=== PATIENT | male | born 1965 | race Native Hawaiian/Other Pacific Islander ===

== ENCOUNTER 2017-02-17 22:59 | Inpatient (IN) | payer OTHER ==
[2017-02-17] MEDS ORDERED: CATAPRES ONE (23:20)
[2017-02-17] MEDS ORDERED: CATAPRES PO ONE (23:34)
[2017-02-17 23:50] LABS: Basophils % (Auto) 0.5 % (0.0-1.8); Eosinophils % (Auto) 13.6 % (0.0-4.3); Hematocrit 27.9 % (35.5-45.6); Hemoglobin 9.5 gm/dl (11.8-15.2); Mean Corpuscular HGB Conc 34 % (32-34); Mean Corpuscular Hemoglobin 31 pg (28-32); Mean Corpuscular Volume 90 fl (84-94); Platelet Count 216 K/mm3 (140-440); Red Blood Count 3.11 M/mm3 (3.65-5.03); Red Cell Distribution Width 12.8 % (13.2-15.2); White Blood Count 7.3 K/mm3 (4.5-11.0)
[2017-02-18 00:06] LABS: BUN/Creatinine Ratio 6.4; Calcium 6.1 mg/dL (8.4-10.2); Chloride 103.8 mmol/L (98-107); Potassium 4.6 mmol/L (3.6-5.0)
--- NOTE | 2017-02-18 00:54 | Cat Scan Report ---
FINAL REPORT EXAM: CT HEAD/BRAIN WO CON HISTORY: headache TECHNIQUE: Noncontrast CT axial images of the brain. PRIORS: None. FINDINGS: No parenchymal mass, mass effect, hemorrhage, midline shift or hydrocephalus. No evidence of acute cortical infarct. No abnormal, extra-axial fluid or air collection. Possible chronic small vessel ischemic or old lacunar infarct change in right frontal deep white matter of p[place]co radiata. Osseous calvarium grossly intact. IMPRESSION: 1. No acute intracranial findings. 2. Chronic ischemic changes suspected.
[2017-02-18] MEDS ORDERED: CATAPRES PO ONE (10:44)
[2017-02-18] MEDS ORDERED: TORADOL IV ONE (10:46)
[2017-02-18] MEDS ORDERED: REGLAN IV ONE (10:46)
[2017-02-18] MEDS ORDERED: BENADRYL IV ONE (10:46)
[2017-02-18] MEDS ORDERED: APRESOLINE IV ONE (10:47)
[2017-02-18] MEDS ORDERED: TETRACAINE 0.5% OU PRN (12:09)
[2017-02-18] MEDS ORDERED: BABY ASPIRIN PO ONE (12:52)
--- NOTE | 2017-02-18 13:15 | Emergency Department Report ---
HPI - General Chief Complaint: Eye Problems Time Seen by Provider: 02/18/17 10:43 - HPI HPI: The patient is a 51-year-old male with a history of hypertension and diabetes, who presents for evaluation of headache and blurred vision. The patient reports headache and change in vision since last night at 9 PM, headache constant since onset, mild in severity, 3/10 in severity, aching in quality, generalized. He states that his change in vision consists of a large black spot in the the left upper visual field of both eyes, and has been constant since onset last night as well. He shares that he does require glasses for seeing, but that he has never experienced loss sight in his visual field. He denies trauma or injury to the head, trauma to the eyes, redness of the eyes, eye pain, discharge from eyes, paresthesias or motor deficit in the face or extremities, facial droop, slurred speech, seizure-like activity, or other focal neurological deficit ED Past Medical Hx - Past Medical History Hx Hypertension: Yes Hx CVA: Yes Hx Diabetes: Yes Hx GERD: Yes Additional medical history: Vertigo - Surgical History Past Surgical History?: No - Social History Smoking Status: Never Smoker Substance Use Type: None - Medications Home Medications: Home Medications Medication Instructions Recorded Confirmed Last Taken Type Empagliflozin/Metformin HCl 1 tab PO DAILY 02/17/17 02/17/17 Unknown History Lisinopril/Hydrochlorothiazide 1 tab PO DAILY 02/17/17 02/17/17 Unknown History Meclizine [Antivert] 1 tab PO TID PRN 02/17/17 02/17/17 Unknown History Ondansetron 8 mg PO TID PRN 02/17/17 02/17/17 Unknown History Ranitidine HCl 1 tab PO Q12HR 02/17/17 02/17/17 Unknown History ED Review of Systems ROS: Stated complaint: BLURRED VISION Other details as noted in HPI Constitutional: denies: fever HEENT: reports vision change denies: throat or neck pain Respiratory: denies: cough, shortness of breath Cardiovascular: denies: chest pain Endocrine: denies unexplained weight loss or gain Gastrointestinal: denies: abdominal pain, nausea Genitourinary: denies: dysuria Musculoskeletal: denies: leg swelling Skin: denies: rash Neurological: reports headache Hematological/Lymphatic: denies: easy bleeding or easy bruising Psych: denies sadness or hopelessness Physical Exam - Physical Exam Vital Signs: Vital Signs 02/17/17 02/17/17 02/17/17 23:06 23:14 23:35 Temperature 97.9 F 97.9 F Pulse Rate 95 H 97 H 95 H Respiratory 18 18 Rate Blood Pressure 213/110 213/110 213/110 Blood Pressure 213/110 [Left] Blood Pressure 197/109 [Right] O2 Sat by Pulse 95 97 Oximetry 02/18/17 02/18/17 02/18/17 10:27 11:34 11:35 Temperature Pulse Rate 74 88 84 Respiratory 13 17 Rate Blood Pressure 180/11 Blood Pressure [Left] Blood Pressure 170/98 180/111 [Right] O2 Sat by Pulse 96 98 Oximetry 02/18/17 11:51 Temperature Pulse Rate 89 Respiratory 18 Rate Blood Pressure Blood Pressure [Left] Blood Pressure 164/87 [Right] O2 Sat by Pulse 99 Oximetry Physical Exam: General: well-nourished, well-developed, no acute distress Head: Normocephalic, atraumatic Eyes: No proptosis or exophthalmos, no periorbital erythema or swelling, normal sclera, EOMI, PERRL, anterior chamber is clear and quiet, normal funduscopic exam, intraocular pressures are 20 in the left eye and 21 in the right eye, upper left visual field deficit present in the eyes bilaterally ENT: Mucous membranes are pink and moist Neck: trachea midline, neck supple, No neck stiffness, no cervical adenopathy Respiratory: Breath sounds equal bilaterally, no wheezing, rales, or rhonchi Cardio: S1 and S2 present, no murmurs, rubs, gallops, capillary refill is brisk Abdomen: Normoactive bowel sounds, soft abdomen, no rigidity, no guarding or rebound tenderness Chest WALL/Back: No tenderness to palpation of the chest wall, no CVA tenderness with percussion Musc: No pitting edema Skin: No rash Neuro: alert oriented x4, normal cognition, speech normal, no facial drooping, no uvula or tongue deviation on protrusion, no deficit with rotation of neck or shoulder shrug, no obvious gross motor deficit in the upper or lower extremities with flexion or extension at the shoulder, elbow, wrist, hip, knee, or ankle bilaterally, no obvious gross sensation deficit to crude touch or 2 pt discrimination, 2+ symmetric reflexes on DTR testing, no dysmetria, dysdiadochokinesia, no coordination deficit with [id number] or [id number] testing, Babinski downgoing, romberg negative, Psych: Normal affect ED Course Vital Signs 02/17/17 02/17/17 02/17/17 23:06 23:14 23:35 Temperature 97.9 F 97.9 F Pulse Rate 95 H 97 H 95 H Respiratory 18 18 Rate Blood Pressure 213/110 213/110 213/110 Blood Pressure 213/110 [Left] Blood Pressure 197/109 [Right] O2 Sat by Pulse 95 97 Oximetry 02/18/17 02/18/17 02/18/17 10:27 11:34 11:35 Temperature Pulse Rate 74 88 84 Respiratory 13 17 Rate Blood Pressure 180/11 Blood Pressure [Left] Blood Pressure 170/98 180/111 [Right] O2 Sat by Pulse 96 98 Oximetry 02/18/17 11:51 Temperature Pulse Rate 89 Respiratory 18 Rate Blood Pressure Blood Pressure [Left] Blood Pressure 164/87 [Right] O2 Sat by Pulse 99 Oximetry ED Medical Decision Making - Lab Data Result diagrams: 02/17/17 23:37 02/17/17 23:37 - Medical Decision Making The patient was seen and examined by myself. The patient is placed on a youth nutritional monitor and continuous pulse ox. On initial evaluation, the patient was found to be in no distress. Evaluation orders were placed. The patient is given IV hydralazine for her elevated blood pressure CT scan of the head reveals likely chronic microvascular ischemic changes, but was negative for acute intracranial disease process. The patient's symptoms and exam findings are consistent with left upper quadrantanopsia due to stroke in the right upper optic radiation. As the patient's symptoms began greater than 12 hours prior to my evaluation, the patient is not a candidate for TPA. The patient is given IV hydralazine for treatment of hypertension and aspirin for treatment of his stroke. Lab results revealed severely elevated BUN of 82 and creatinine of 12 and otherwise labs were unrevealing. The on-call hospitalist service was contacted. They agreed to admit the patient for further treatment and close monitoring. The ED admit order was placed. The patient was admitted in guarded condition. Critical care attestation.: If time is entered above; I have spent that time in minutes in the direct care of this critically ill patient, excluding procedure time. ED Disposition Clinical Impression: Acute cerebrovascular accident (CVA), Hypertensive urgency Acute nonintractable headache Qualifiers: Headache type: unspecified Qualified Code(s): R51 - Headache Acute renal failure (ARF) Qualifiers: Acute renal failure type: unspecified Qualified Code(s): N17.9 - Acute kidney failure, unspecified Disposition: 09 OP ADMIT IP TO THIS HOSP Is pt being admited?: Yes Does the pt Need Aspirin: Yes Condition: Serious Referrals: PRIMARY CARE, [Primary Care Provider] - 3-5 Days Time of Disposition: 12:57
[2017-02-18] MEDS ORDERED: TYLENOL PO PRN ×2 (14:11→14:16)
[2017-02-18] MEDS ORDERED: ZOFRAN IV PRN ×2 (14:11→14:16)
[2017-02-18] MEDS ORDERED: MILK OF MAGNESIA PO PRN ×2 (14:11→14:16)
[2017-02-18] MEDS ORDERED: D50W (25GM) Syringe IV PRN (14:11)
[2017-02-18] MEDS ORDERED: DULCOLAX PR PRN ×2 (14:11→14:16)
[2017-02-18] MEDS ORDERED: PHENERGAN PR PRN (14:16)
[2017-02-18] MEDS ORDERED: SODIUM CHLORIDE FLUSH SYRINGE 10 ML IV PRN (14:16)
[2017-02-18] MEDS ORDERED: REGLAN PO PRN (14:16)
[2017-02-18] MEDS ORDERED: APRESOLINE IV PRN (14:19)
[2017-02-18] MEDS ORDERED: ZESTRIL PO SCH (14:20)
[2017-02-18] MEDS ORDERED: HCTZ PO ONE (14:20)
--- NOTE | 2017-02-18 14:23 | History and Physical Report ---
History of Present Illness Date of examination: 02/18/17 Date of admission: 02/18/17 Chief complaint: loss of vision History of present illness: This is a 51-year-old male with history of hypertension and diabetes mellitus who presents to the emergency department with complaints of loss of vision in the left upper quadrant of both eyes. Patient states that he sees a large black spot in both visual bolden. He reports that he does require glasses for seeing but has never experienced this before. The son is at the bedside who is translating. Patient denies any weakness or paresthesias. He denies trauma or injury to the head, trauma to the eyes, redness of the eyes, eye pain, discharge from eyes, paresthesias or motor deficit in the face or extremities, facial droop, slurred speech, seizure-like activity, or other focal neurological deficit Past History Past Medical History: diabetes, GERD, hypertension, stroke, other (vertigo) Past Surgical History: No surgical history Social history: no significant social history Family history: no significant family history Medications and Allergies Allergies Allergy/AdvReac Type Severity Reaction Status Date / Time No Known Allergies Allergy Unverified 02/17/17 23:24 Home Medications Medication Instructions Recorded Confirmed Last Taken Type Empagliflozin/Metformin HCl 1 tab PO DAILY 02/17/17 02/17/17 Unknown History Lisinopril/Hydrochlorothiazide 1 tab PO DAILY 02/17/17 02/17/17 Unknown History Meclizine [Antivert] 1 tab PO TID PRN 02/17/17 02/17/17 Unknown History Ondansetron 8 mg PO TID PRN 02/17/17 02/17/17 Unknown History Ranitidine HCl 1 tab PO Q12HR 02/17/17 02/17/17 Unknown History Active Meds: Active Medications Tetracaine HCl (Tetracaine 0.5%) 1 drops OU Q5M PRN PRN Reason: blurry vision Last Admin: 02/18/17 13:31 Dose: 1 drops Review of Systems All systems: negative Exam - Constitutional Vitals: Temp Pulse Resp BP Pulse Ox 97.9 F 89 17 132/65 99 02/17/17 23:14 02/18/17 13:21 02/18/17 13:21 02/18/17 13:21 02/18/17 13:21 General appearance: Present: no acute distress, well-nourished - EENT Eyes: Present: PERRL ENT: hearing intact, clear oral mucosa - Neck Neck: Present: supple, normal ROM - Respiratory Respiratory effort: normal Respiratory: bilateral: CTA - Cardiovascular Heart Sounds: Present: S1 & S2. Absent: rub, click - Extremities Extremities: pulses symmetrical, No edema Peripheral Pulses: within normal limits - Abdominal General gastrointestinal: Present: soft, non-tender, non-distended, normal bowel sounds Male genitourinary: Present: normal - Integumentary Integumentary: Present: clear, warm, dry - Musculoskeletal Musculoskeletal: gait normal, strength equal bilaterally - Psychiatric Psychiatric: appropriate mood/affect, intact judgment & insight - Neurologic Neurologic: CNII-XII intact, moves all extremities Results - Labs CBC & Chem 7: 02/17/17 23:37 02/17/17 23:37 Labs: Laboratory Last Values WBC 7.3 K/mm3 (4.5-11.0) 02/17/17 23:37 RBC 3.11 M/mm3 (3.65-5.03) L 02/17/17 23:37 Hgb 9.5 gm/dl (11.8-15.2) L 02/17/17 23:37 Hct 27.9 % (35.5-45.6) L 02/17/17 23:37 MCV 90 fl (84-94) 02/17/17 23:37 MCH 31 pg (28-32) 02/17/17 23:37 MCHC 34 % (32-34) 02/17/17 23:37 RDW 12.8 % (13.2-15.2) L 02/17/17 23:37 Plt Count 216 K/mm3 (140-440) 02/17/17 23:37 Lymph % (Auto) 14.3 % (13.4-35.0) 02/17/17 23:37 Heard % (Auto) 6.9 % (0.0-7.3) 02/17/17 23:37 Eos % (Auto) 13.6 % (0.0-4.3) H 02/17/17 23:37 Baso % (Auto) 0.5 % (0.0-1.8) 02/17/17 23:37 Lymph # 1.0 K/mm3 (1.2-5.4) L 02/17/17 23:37 Heard # 0.5 K/mm3 (0.0-0.8) 02/17/17 23:37 Eos # 1.0 K/mm3 (0.0-0.4) H 02/17/17 23:37 Baso # 0.0 K/mm3 (0.0-0.1) 02/17/17 23:37 Seg Neutrophils % 64.7 % (40.0-70.0) 02/17/17 23:37 Seg Neutrophils # 4.7 K/mm3 (1.8-7.7) 02/17/17 23:37 Sodium 141 mmol/L (137-145) 02/17/17 23:37 Potassium 4.6 mmol/L (3.6-5.0) 02/17/17 23:37 Chloride 103.8 mmol/L (98-107) 02/17/17 23:37 Carbon Dioxide 17 mmol/L (22-30) L 02/17/17 23:37 Anion Gap 25 mmol/L 02/17/17 23:37 BUN 82 mg/dL (9-20) H 02/17/17 23:37 Creatinine 12.8 mg/dL (0.8-1.5) H 02/17/17 23:37 Estimated GFR 4 ml/min 02/17/17 23:37 BUN/Creatinine Ratio 6.40 % 02/17/17 23:37 Glucose 106 mg/dL (75-100) H 02/17/17 23:37 POC Glucose 126 (70-105) H 02/17/17 23:13 Calcium 6.1 mg/dL (8.4-10.2) L 02/17/17 23:37 Assessment and Plan Assessment and plan: Acute CVA. Patient appears to have left homonymous quadrantanopsia suggesting a lesion in the right optic tract. Consult neurology for further evaluation. Check MRI/MRA, echocardiogram and carotid ultrasound. Diabetes mellitus type 2. Accu-Cheks and sliding scale insulin. Accelerated hypertension. Patient's presenting blood pressure noted to be 197/ 109. We will allow for permissive hypertension. Hydralazine when necessary. Start home medication of lisinopril and l hydrochlorothiazide
[2017-02-18] MEDS ORDERED: HCTZ PO SCH (15:00)
--- NOTE | 2017-02-18 15:26 | Ultrasound Report ---
FINAL REPORT EXAM: US RENAL BILAT HISTORY: new onset kidney failure TECHNIQUE: Directed sonography of the retroperitoneum. PRIORS: None. FINDINGS: The right kidney measures 11.7 cm in longest dimension and the left kidney measures 10.7 cm in longest dimension. Renal cortical echotexture mildly increased and isoechoic with adjacent hepatic parenchyma. Round, exophytic cyst off right kidney measuring 2.2 x 1.9 cm. No intrarenal calculi, significant hydronephrosis or abnormal perinephric fluid collections. Visualized urinary bladder grossly unremarkable. Bilateral pleural effusions incidentally noted. IMPRESSION: 1. Findings compatible with medical renal disease. No significant hydronephrosis. 2. Right renal cyst.
--- NOTE | 2017-02-18 15:45 | Magnetic Resonance Report ---
FINAL REPORT EXAM: MR BRAIN WO CON HISTORY: stroke TECHNIQUE: Multiplanar MRI of the brain. No contrast administered. PRIORS: CT brain, 17 February 2017. FINDINGS: Brain volume is normal for age. Mild, patchy foci of T2 and FLAIR bright signal in the periventricular and subcortical white matter are nonspecific, but may relate to chronic small vessel ischemic change. No acute infarct seen on diffusion-weighted imaging. No parenchymal mass, mass-effect, hemorrhage, midline shift or hydrocephalus. No pathologic extra-axial fluid collection. No pineal region or sellar masses. No cerebellar tonsillar herniation. Mucosal thickening versus retention cysts or polyps in bilateral inferior maxillary sinuses. IMPRESSION: 1. No acute intracranial findings. 2. Chronic ischemic changes suspected. 3. Maxillary sinus disease.
--- NOTE | 2017-02-18 16:08 | Magnetic Resonance Report ---
FINAL REPORT EXAM: MR MRA/MRV HEAD WO CON HISTORY: stroke TECHNIQUE: Multiplanar MRA of [place]. No contrast administered. PRIORS: None. FINDINGS: Normal flow related enhancement in the basilar and bilateral internal carotid arteries and their main intracranial branches. Mild narrowing in M1 segments of bilateral MCAs measuring approximately 8 mm in length on the right and 3 mm in length on the left and approximating 50% or less stenosis by NASCET criteria. No abnormal aneurysmal dilatation, focal signal dropout or signal void to suggest significant stenosis. P-comm arteries evident bilaterally. IMPRESSION: 1. No significant findings.
[2017-02-19] MEDS: ZOCOR PO SCH ×2 (00:07→22:50)
[2017-02-19] MEDS ORDERED: PNEUMOVAX 23 IM ONE ×2 (06:00→12:00)
[2017-02-19 07:27] LABS: Basophils % (Auto) 0.6 % (0.0-1.8); Hematocrit 26.6 % (35.5-45.6); Mean Corpuscular HGB Conc 34 % (32-34); Mean Corpuscular Hemoglobin 30 pg (28-32); Mean Corpuscular Volume 89 fl (84-94); Platelet Count 207 K/mm3 (140-440); Red Blood Count 2.98 M/mm3 (3.65-5.03); White Blood Count 5.9 K/mm3 (4.5-11.0)
[2017-02-19 07:43] LABS: BUN/Creatinine Ratio 7.16; Calcium 6.1 mg/dL (8.4-10.2); Chloride 106.4 mmol/L (98-107); Potassium 5.6 mmol/L (3.6-5.0)
[2017-02-19] MEDS ORDERED: METFORMIN HCL PO SCH (10:00)
[2017-02-19] MEDS ORDERED: EMPAGLIFLOZIN PO SCH (10:00)
[2017-02-19] MEDS ORDERED: LOVENOX SUB-Q SCH (10:00)
[2017-02-19] MEDS: LOVENOX SUB-Q SCH (10:06)
--- NOTE | 2017-02-19 10:11 | Progress Note ---
Assessment and Plan Assessment and plan: Acute renal failure on probable CKD. Nephrology consultation pending. Renal ultrasound reveals findings consistent with medical renal disease. Patient may likely need hemodialysis. Hyperkalemia. Etiology secondary to above. Acute CVA. Patient appears to have left homonymous quadrantanopsia suggesting a lesion in the right optic tract. Consult neurology for further evaluation. Check MRI/MRA, echocardiogram and carotid ultrasound. Diabetes mellitus type 2. Accu-Cheks and sliding scale insulin. Accelerated hypertension. We will allow for permissive hypertension. Continue IV Hydralazine when necessary. We will hold the lisinopril and hydrochlorothiazide given the renal failure. History Interval history: No new issues overnight. Patient still with visual field deficits. Hospitalist Physical - Constitutional Vitals: Temp Pulse Resp BP Pulse Ox 98.1 F 78 20 154/82 97 02/19/17 04:21 02/19/17 04:21 02/19/17 08:54 02/19/17 04:21 02/19/17 04:21 General appearance: Present: no acute distress, well-nourished - EENT Eyes: Present: PERRL, EOM intact ENT: hearing intact, clear oral mucosa, dentition normal - Neck Neck: Present: supple, normal ROM - Respiratory Respiratory effort: normal Respiratory: bilateral: CTA - Cardiovascular Rhythm: regular Heart Sounds: Present: S1 & S2. Absent: gallop, rub - Extremities Extremities: no ischemia, No edema, Full ROM - Abdominal General gastrointestinal: soft, non-tender, non-distended, normal bowel sounds - Integumentary Integumentary: Present: clear, warm, dry - Neurologic Neurologic: CNII-XII intact, moves all extremities Results - Labs CBC & Chem 7: 02/19/17 07:09 02/19/17 07:09 Labs: Laboratory Last Values WBC 5.9 K/mm3 (4.5-11.0) 02/19/17 07:09 RBC 2.98 M/mm3 (3.65-5.03) L 02/19/17 07:09 Hgb 9.0 gm/dl (11.8-15.2) L 02/19/17 07:09 Hct 26.6 % (35.5-45.6) L 02/19/17 07:09 MCV 89 fl (84-94) 02/19/17 07:09 MCH 30 pg (28-32) 02/19/17 07:09 MCHC 34 % (32-34) 02/19/17 07:09 RDW 13.0 % (13.2-15.2) L 02/19/17 07:09 Plt Count 207 K/mm3 (140-440) 02/19/17 07:09 Lymph % (Auto) 14.4 % (13.4-35.0) 02/19/17 07:09 [place] % (Auto) 8.8 % (0.0-7.3) H 02/19/17 07:09 Eos % (Auto) 14.0 % (0.0-4.3) H 02/19/17 07:09 Baso % (Auto) 0.6 % (0.0-1.8) 02/19/17 07:09 Lymph # 0.9 K/mm3 (1.2-5.4) L 02/19/17 07:09 [place] # 0.5 K/mm3 (0.0-0.8) 02/19/17 07:09 Eos # 0.8 K/mm3 (0.0-0.4) H 02/19/17 07:09 Baso # 0.0 K/mm3 (0.0-0.1) 02/19/17 07:09 Seg Neutrophils % 62.2 % (40.0-70.0) 02/19/17 07:09 Seg Neutrophils # 3.7 K/mm3 (1.8-7.7) 02/19/17 07:09 Sodium 141 mmol/L (137-145) 02/19/17 07:09 Potassium 5.6 mmol/L (3.6-5.0) H D 02/19/17 07:09 Chloride 106.4 mmol/L (98-107) 02/19/17 07:09 Carbon Dioxide 19 mmol/L (22-30) L 02/19/17 07:09 Anion Gap 21 mmol/L 02/19/17 07:09 BUN 91 mg/dL (9-20) H 02/19/17 07:09 Creatinine 12.7 mg/dL (0.8-1.5) H 02/19/17 07:09 Estimated GFR 4 ml/min 02/19/17 07:09 BUN/Creatinine Ratio 7.16 % 02/19/17 07:09 Glucose 82 mg/dL (75-100) 02/19/17 07:09 POC Glucose 78 (70-105) 02/19/17 06:50 Calcium 6.1 mg/dL (8.4-10.2) L 02/19/17 07:09 Triglycerides 156 mg/dL (2-149) H 02/19/17 07:09 Cholesterol 207 mg/dL (50-199) H 02/19/17 07:09 LDL Cholesterol Direct 147 mg/dL (50-130) H 02/19/17 07:09 HDL Cholesterol 29 mg/dL (40-59) L 02/19/17 07:09 Cholesterol/HDL Ratio 7.13 % 02/19/17 07:09
[2017-02-19] MEDS ORDERED: Fluarix Quad 2017-2018(36 MOS+) IM ONE (12:00)
--- NOTE | 2017-02-19 13:30 | Consultation ---
History of Present Illness - Reason for Consult Consult date: 02/19/17 acute renal failure - History of Present Illness Multiple family members at bedside. Son assists in translating. Mr. Sam is a 51yo gentleman with a 5 year history of DM and 1 year history of HTN who presented to the ED with change in vision. He reports that he was in usual state of health until appx 2 weeks ago when he began experiencing nausea, loss of appetite, SOB/orthopnea. Mr. Sam saw his PCP last month and states that his PCP expressed concern regarding his kidney function. Mr. Sam denies hx of kidney dysfunction prior to this time. He denies hematuria, epistaxis, hemoptysis, NSAID use and family history of kidney disease. Past History Past Medical History: diabetes, GERD, hypertension, stroke, other (vertigo) Past Surgical History: No surgical history Social history: no significant social history Family history: no significant family history Medications and Allergies Allergies Allergy/AdvReac Type Severity Reaction Status Date / Time No Known Allergies Allergy Unverified 02/17/17 23:24 Home Medications Medication Instructions Recorded Confirmed Last Taken Type Empagliflozin/Metformin HCl 1 tab PO DAILY 02/17/17 02/17/17 Unknown History Lisinopril/Hydrochlorothiazide 1 tab PO DAILY 02/17/17 02/17/17 Unknown History Meclizine [Antivert] 1 tab PO TID PRN 02/17/17 02/17/17 Unknown History Ondansetron 8 mg PO TID PRN 02/17/17 02/17/17 Unknown History Ranitidine HCl 1 tab PO Q12HR 02/17/17 02/17/17 Unknown History Active Meds: Active Medications Acetaminophen (Tylenol) 650 mg PO Q4H PRN PRN Reason: Pain MILD(1-3)/Fever >100.5/GARCIA Bisacodyl (Dulcolax) 10 mg MD QDAY PRN PRN Reason: Constipation unrelieved by MOM Dextrose (D50w (25gm) Syringe) 50 ml IV PRN PRN PRN Reason: Hypoglycemia Enoxaparin Sodium (Lovenox) 30 mg SUB-Q QDAY DAVEY Last Admin: 02/19/17 10:06 Dose: 30 mg Hydralazine HCl (Apresoline) 20 mg IV PRN PRN PRN Reason: Blood Pressure Hydrochlorothiazide (Hctz) 12.5 mg PO QDAY [facility] Last Admin: 02/19/17 10:08 Dose: 12.5 mg Insulin Human Regular (Novolin R) 0 units SUB-Q ACHS DAVEY PRN Reason: Protocol Last Admin: 02/19/17 07:30 Dose: Not Given Magnesium Hydroxide (Milk Of Magnesia) 30 ml PO Q4H PRN PRN Reason: Constipation Metoclopramide HCl (Reglan) 2.5 mg PO Q6H PRN PRN Reason: Nausea And Vomiting Miscellaneous Medication (Empagliflozin/Metformin Hcl) 1 tab PO DAILY [facility] Ondansetron HCl (Zofran) 4 mg IV Q8H PRN PRN Reason: N/V unrelieved by Reglan Promethazine HCl (Phenergan) 25 mg MD Q6H PRN PRN Reason: Nausea And Vomiting Simvastatin (Zocor) 20 mg PO QHS [facility] Last Admin: 02/19/17 00:07 Dose: 20 mg Sodium Chloride (Sodium Chloride Flush Syringe 10 Ml) 10 ml IV PRN PRN PRN Reason: LINE FLUSH Tetracaine HCl (Tetracaine 0.5%) 1 drops OU Q5M PRN PRN Reason: blurry vision Last Admin: 02/18/17 13:31 Dose: 1 drops Review of Systems Constitutional: poor appetite, no fever Cardiovascular: shortness of breath, leg edema (with prolonged standing), no chest pain Gastrointestinal: nausea, no vomiting, no diarrhea Genitourinary Male: urinary hesitancy, no hematuria Musculoskeletal: no myalgias Integumentary: no rash Neurological: parathesias Exam - Vital Signs Vital signs: Vital Signs Temp Pulse Resp BP Pulse Ox 97.9 F 95 H 18 213/110 95 02/17/17 23:06 02/17/17 23:06 02/17/17 23:06 02/17/17 23:06 02/17/17 23:06 - General Appearance General appearance: well-developed, well-nourished EENT: ATNC Neck: Present: neck supple Respiratory: Clear to Ascultation Heart: regular, S1S2 Gastrointestinal: Present: normal. Absent: tenderness, distended Integumentary: no rash Musculoskeletal: Present: other (no edema) Psychiatric: cooperative Results - Lab Results 02/19/17 07:09 02/19/17 07:09 Most recent lab results Calcium 6.1 mg/dL (8.4-10.2) L 02/19/17 07:09 Assessment and Plan Impression: * Acute kidney injury vs new ESRD * Accelerated hypertension * Type II diabetes mellitus * Anemia Plan: * No emergent need for hemodialysis today. 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
[2017-02-19] MEDS ORDERED: KIONEX PO ONE (15:30)
[2017-02-19] MEDS: NORVASC PO SCH (16:11)
[2017-02-19] MEDS ORDERED: NON-FORMULARY PO SCH ×2 (17:00)
[2017-02-19] MEDS: NORMODYNE PO SCH (22:50)
[2017-02-20 00:55] LABS: Bilirubin,Urine NEG (Negative); Blood,Urine NEG (Negative); Ketones,Urine NEG (Negative); Leukocyte Esterase,Urine NEG (Negative); Nitrite,Urine NEG (Negative); RBC,Urine < 1.0 /HPF (0.0-6.0); Urobilinogen,Urine < 2.0 mg/dL (<2.0)
[2017-02-20 01:02] LABS: Protein,Urine >500 mg/dL (Negative)
[2017-02-20] MEDS: NORMODYNE PO SCH ×2 (09:07→22:25)
[2017-02-20] MEDS: NORVASC PO SCH (09:07)
[2017-02-20] MEDS: LOVENOX SUB-Q SCH (09:08)
--- NOTE | 2017-02-20 09:54 | Progress Note ---
Assessment and Plan Impression: * Acute kidney injury vs new ESRD --Renal ultrasound reviewed - patient with echogenic changes concerning for chronic disease * Accelerated hypertension * Type II diabetes mellitus * Anemia Plan: * BMP pending * No emergent need for hemodialysis today. However, patient will likely require initiation of CLAIMS DIRECTOR this admission * 24h urine CrCl in progress * Serologic work up pending * Continue BP medications - BP control improved * Avoid nephrotoxins * Dose medications for renal function * Will attempt to obtain records from patient's PCP today Subjective Date of service: 02/20/17 Interval history: Patient has no complaints today. Denies SOB. Objective - Vital Signs Vital signs: Vital Signs - 12hr 02/19/17 02/19/17 02/19/17 22:00 22:50 23:56 Temperature 97.8 F Pulse Rate 90 Respiratory Rate Respiratory 18 Rate [Soft Tissue] Blood Pressure 136/68 133/75 O2 Sat by Pulse Oximetry 02/20/17 02/20/17 02/20/17 04:22 07:49 07:51 Temperature 97.9 F 97.9 F Pulse Rate 85 83 84 Respiratory 17 18 18 Rate Respiratory Rate [Soft Tissue] Blood Pressure 133/78 147/82 O2 Sat by Pulse 96 98 97 Oximetry 02/20/17 09:07 Temperature Pulse Rate 83 Respiratory Rate Respiratory Rate [Soft Tissue] Blood Pressure 147/82 O2 Sat by Pulse Oximetry - General Appearance General appearance: well-developed, well-nourished EENT: ATNC Respiratory: Present: Clear to Ascultation Cardiology: regular, S1S2 Gastrointestinal: normal, no tenderness, no distended Integumentary: no rash Musculoskeletal: other (no edema) Psychiatric: cooperative - Lab 02/19/17 07:09 02/19/17 07:09 Most recent lab results Calcium 6.1 mg/dL (8.4-10.2) L 02/19/17 07:09
--- NOTE | 2017-02-20 11:18 | Progress Note ---
Assessment and Plan Assessment and plan: Acute renal failure on probable CKD. Nephrology following. Renal ultrasound reveals findings consistent with medical renal disease. Patient may likely need hemodialysis. 24-hour urine and serologic workup pending. Avoid nephrotoxins. Hyperkalemia. Etiology secondary to above. Acute CVA. Patient appears to have left homonymous quadrantanopsia suggesting a lesion in the right optic tract. Consult neurology for further evaluation. Check MRI/MRA, echocardiogram and carotid ultrasound. Diabetes mellitus type 2. Accu-Cheks and sliding scale insulin. Accelerated hypertension. Continue hydralazine when necessary. Continue labetalol and hydrochlorothiazide. History Interval history: No new issues overnight. Patient still with visual field deficits. Hospitalist Physical - Constitutional Vitals: Temp Pulse Resp BP Pulse Ox 97.9 F 83 18 147/82 97 02/20/17 07:51 02/20/17 09:07 02/20/17 07:51 02/20/17 09:07 02/20/17 07:51 General appearance: Present: no acute distress, well-nourished - EENT Eyes: Present: PERRL, EOM intact ENT: hearing intact, clear oral mucosa, dentition normal - Neck Neck: Present: supple, normal ROM - Respiratory Respiratory effort: normal Respiratory: bilateral: CTA - Cardiovascular Rhythm: regular Heart Sounds: Present: S1 & S2. Absent: gallop, rub - Extremities Extremities: no ischemia, No edema, Full ROM - Abdominal General gastrointestinal: soft, non-tender, non-distended, normal bowel sounds - Integumentary Integumentary: Present: clear, warm, dry - Neurologic Neurologic: CNII-XII intact, moves all extremities Results - Labs CBC & Chem 7: 02/19/17 07:09 02/19/17 07:09 Labs: Laboratory Last Values WBC 5.9 K/mm3 (4.5-11.0) 02/19/17 07:09 RBC 2.98 M/mm3 (3.65-5.03) L 02/19/17 07:09 Hgb 9.0 gm/dl (11.8-15.2) L 02/19/17 07:09 Hct 26.6 % (35.5-45.6) L 02/19/17 07:09 MCV 89 fl (84-94) 02/19/17 07:09 MCH 30 pg (28-32) 02/19/17 07:09 MCHC 34 % (32-34) 02/19/17 07:09 RDW 13.0 % (13.2-15.2) L 02/19/17 07:09 Plt Count 207 K/mm3 (140-440) 02/19/17 07:09 Lymph % (Auto) 14.4 % (13.4-35.0) 02/19/17 07:09 [place] % (Auto) 8.8 % (0.0-7.3) H 02/19/17 07:09 Eos % (Auto) 14.0 % (0.0-4.3) H 02/19/17 07:09 Baso % (Auto) 0.6 % (0.0-1.8) 02/19/17 07:09 Lymph # 0.9 K/mm3 (1.2-5.4) L 02/19/17 07:09 [place] # 0.5 K/mm3 (0.0-0.8) 02/19/17 07:09 Eos # 0.8 K/mm3 (0.0-0.4) H 02/19/17 07:09 Baso # 0.0 K/mm3 (0.0-0.1) 02/19/17 07:09 Seg Neutrophils % 62.2 % (40.0-70.0) 02/19/17 07:09 Seg Neutrophils # 3.7 K/mm3 (1.8-7.7) 02/19/17 07:09 Sodium 141 mmol/L (137-145) 02/19/17 07:09 Potassium 5.6 mmol/L (3.6-5.0) H D 02/19/17 07:09 Chloride 106.4 mmol/L (98-107) 02/19/17 07:09 Carbon Dioxide 19 mmol/L (22-30) L 02/19/17 07:09 Anion Gap 21 mmol/L 02/19/17 07:09 BUN 91 mg/dL (9-20) H 02/19/17 07:09 Creatinine 12.7 mg/dL (0.8-1.5) H 02/19/17 07:09 Estimated GFR 4 ml/min 02/19/17 07:09 BUN/Creatinine Ratio 7.16 % 02/19/17 07:09 Glucose 82 mg/dL (75-100) 02/19/17 07:09 POC Glucose 85 (70-105) 02/20/17 06:42 Calcium 6.1 mg/dL (8.4-10.2) L 02/19/17 07:09 Iron 91 ug/dL (49-181) 02/19/17 16:06 TIBC 195 mcg/dL (250-450) L 02/19/17 16:06 % Saturation 46.67 % 02/19/17 16:06 Transferrin 168 mg/dl (180-329) L 02/19/17 16:06 Ferritin 472.7 ng/mL (13.0-400.0) H 02/19/17 16:06 Triglycerides 156 mg/dL (2-149) H 02/19/17 07:09 Cholesterol 207 mg/dL (50-199) H 02/19/17 07:09 LDL Cholesterol Direct 147 mg/dL (50-130) H 02/19/17 07:09 HDL Cholesterol 29 mg/dL (40-59) L 02/19/17 07:09 Cholesterol/HDL Ratio 7.13 % 02/19/17 07:09 Urine Color Straw (Yellow) 02/20/17 00:20 Urine Turbidity Clear (Clear) 02/20/17 00:20 Urine pH 6.0 (5.0-7.0) 02/20/17 00:20 Ur Specific [place] 1.011 (1.003-1.030) 02/20/17 00:20 Urine Protein >500 mg/dL (Negative) 02/20/17 00:20 Urine Glucose (UA) >=500 mg/dL (Negative) 02/20/17 00:20 Urine Ketones Neg mg/dL (Negative) 02/20/17 00:20 Urine Blood Neg (Negative) 02/20/17 00:20 Urine Nitrite Neg (Negative) 02/20/17 00:20 Urine Bilirubin Neg (Negative) 02/20/17 00:20 Urine Urobilinogen < 2.0 mg/dL (<2.0) 02/20/17 00:20 Ur Leukocyte Esterase Neg (Negative) 02/20/17 00:20 Urine WBC (Auto) 1.0 /HPF (0.0-6.0) 02/20/17 00:20 Urine RBC (Auto) < 1.0 /HPF (0.0-6.0) 02/20/17 00:20 Urine Eosinophils >5% (None Seen) 02/20/17 00:20 Hepatitis A IgM Ab Non-reactive (NonReactive) 02/19/17 16:06 Hep Bs Antigen Non-reactive (Negative) 02/19/17 16:06 Hep B Core IgM Ab Non-reactive (NonReactive) 02/19/17 16:06 Hepatitis C Antibody Non-reactive (NonReactive) 02/19/17 16:06
[2017-02-20 11:20] LABS: BUN/Creatinine Ratio 7.3; Chloride 104.3 mmol/L (98-107); Potassium 4.9 mmol/L (3.6-5.0)
[2017-02-20 11:37] LABS: Calcium 5.7 mg/dL (8.4-10.2)
[2017-02-20] MEDS: ZOCOR PO SCH (22:25)
[2017-02-21 03:02] LABS: Sodium 24 Hour,Urine 69.4 (40-220)
[2017-02-21 05:38] LABS: BUN/Creatinine Ratio 7.7; Chloride 104.8 mmol/L (98-107); Potassium 5.1 mmol/L (3.6-5.0)
[2017-02-21 06:37] LABS: Calcium 5.5 mg/dL (8.4-10.2)
[2017-02-21] MEDS ORDERED: PROCRIT IV PRN (08:16)
[2017-02-21] MEDS ORDERED: HEPARIN IV PRN (08:16)
[2017-02-21] MEDS ORDERED: HEPARIN 10,000 UNITS/10 ML IV PRN (08:16)
[2017-02-21] MEDS ORDERED: NACL 0.9% 100 ML IV PRN ×2 (08:16→16:18)
--- NOTE | 2017-02-21 08:45 | Event Note ---
Date: 02/21/17 Pt w/ acute on chronic kidney disease. Nephrology requests permacath placement. Will proceed today, if scheduling permits, otherwise tomorrow.
--- NOTE | 2017-02-21 08:59 | Progress Note ---
Assessment and Plan Impression: * Acute kidney injury vs new ESRD --Renal ultrasound reviewed - patient with echogenic changes concerning for chronic disease * Accelerated hypertension * Type II diabetes mellitus * Anemia * Hypocalcemia secondary to secondary hyperPTH Plan: * Have consulted vascular surgery for permcath placement * HD to follow * Start Calcitriol and adjust Ca bath with dialysis * Epogen with dialysis * Serologic work up pending * Continue BP medications - BP control improved * Avoid nephrotoxins * Dose medications for renal function * CM consulted to assist with outpatient hemodialysis * Indication for hemodialysis, risk and benefit discussed with patient w/ use of Language Line. All questions answered. Patient consents to treatment Subjective Date of service: 02/21/17 Interval history: Language line used to assist in interpretation. Patient denies nausea, vomiting. Denies SOB. Objective - Vital Signs Vital signs: Vital Signs - 12hr 02/20/17 02/20/17 02/21/17 22:25 23:49 03:49 Temperature 98.4 F 98.1 F Pulse Rate 84 85 81 Respiratory 14 14 Rate Blood Pressure 122/72 112/70 117/68 O2 Sat by Pulse 96 97 Oximetry - General Appearance General appearance: well-developed, well-nourished EENT: ATNC Respiratory: Present: Clear to Ascultation Cardiology: regular, S1S2 Gastrointestinal: normal, no tenderness, no distended Integumentary: no rash Musculoskeletal: other (no edema) Psychiatric: cooperative - Lab 02/19/17 07:09 02/21/17 04:51 Most recent lab results Calcium 5.5 mg/dL (8.4-10.2) L* 02/21/17 04:51 Urine Creatinine 82.2 mg/dL (0.1-20.0) H 02/21/17 02:00 Urine Sodium 73 mEq/L 02/21/17 02:00
[2017-02-21] MEDS: LOVENOX SUB-Q SCH (09:32)
--- NOTE | 2017-02-21 10:48 | Progress Note ---
Assessment and Plan Assessment and plan: --Acute renal failure vs ESRD. Patient may need hemodialysis. Vas-Cath placement today and hemodialysis, Nephrology following --Hyperkalemia. Management per nephrology --Malignant Hypertension, continue current antihypertensives and when necessary medications --? Acute CVA. Patient appears to have left homonymous quadrantanopsia suggesting a lesion in the right optic tract. Consult neurology for further evaluation. Check MRI/MRA, echocardiogram and carotid ultrasound. --Diabetes mellitus type 2. Accu-Cheks and sliding scale insulin. --Hypocalcemia, secondary to hyperparathyroidism, nephrology following --Dvt prophylaxis; Lovenox renal dose Plan of care discussed with the patient and his at the bedside Consults and recommendations noted and appreciated History Interval history: Patient seen and examined this morning No new complaints Hospitalist Physical - Constitutional Vitals: Temp Pulse Resp BP Pulse Ox 97.9 F 80 20 135/74 98 02/21/17 08:15 02/21/17 08:15 02/21/17 08:15 02/21/17 08:15 02/21/17 08:15 General appearance: Present: no acute distress, well-nourished - EENT Eyes: Present: PERRL, EOM intact - Neck Neck: Present: supple, normal ROM - Respiratory Respiratory effort: normal Respiratory: bilateral: diminished, negative: rales, rhonchi, wheezing - Cardiovascular Rhythm: regular Heart Sounds: Present: S1 & S2 - Extremities Extremities: no ischemia, No edema - Abdominal General gastrointestinal: soft, non-tender, non-distended, normal bowel sounds - Integumentary Integumentary: Present: clear, warm - Psychiatric Psychiatric: appropriate mood/affect, cooperative - Neurologic Neurologic: CNII-XII intact, moves all extremities Results - Labs CBC & Chem 7: 02/19/17 07:09 02/21/17 04:51 Labs: Laboratory Last Values WBC 5.9 K/mm3 (4.5-11.0) 02/19/17 07:09 RBC 2.98 M/mm3 (3.65-5.03) L 02/19/17 07:09 Hgb 9.0 gm/dl (11.8-15.2) L 02/19/17 07:09 Hct 26.6 % (35.5-45.6) L 02/19/17 07:09 MCV 89 fl (84-94) 02/19/17 07:09 MCH 30 pg (28-32) 02/19/17 07:09 MCHC 34 % (32-34) 02/19/17 07:09 RDW 13.0 % (13.2-15.2) L 02/19/17 07:09 Plt Count 207 K/mm3 (140-440) 02/19/17 07:09 Lymph % (Auto) 14.4 % (13.4-35.0) 02/19/17 07:09 [place] % (Auto) 8.8 % (0.0-7.3) H 02/19/17 07:09 Eos % (Auto) 14.0 % (0.0-4.3) H 02/19/17 07:09 Baso % (Auto) 0.6 % (0.0-1.8) 02/19/17 07:09 Lymph # 0.9 K/mm3 (1.2-5.4) L 02/19/17 07:09 [place] # 0.5 K/mm3 (0.0-0.8) 02/19/17 07:09 Eos # 0.8 K/mm3 (0.0-0.4) H 02/19/17 07:09 Baso # 0.0 K/mm3 (0.0-0.1) 02/19/17 07:09 Seg Neutrophils % 62.2 % (40.0-70.0) 02/19/17 07:09 Seg Neutrophils # 3.7 K/mm3 (1.8-7.7) 02/19/17 07:09 Sodium 141 mmol/L (137-145) 02/21/17 04:51 Potassium 5.1 mmol/L (3.6-5.0) H 02/21/17 04:51 Chloride 104.8 mmol/L (98-107) 02/21/17 04:51 Carbon Dioxide 18 mmol/L (22-30) L 02/21/17 04:51 Anion Gap 23 mmol/L 02/21/17 04:51 BUN 101 mg/dL (9-20) H 02/21/17 04:51 Creatinine 13.1 mg/dL (0.8-1.5) H 02/21/17 04:51 Estimated GFR 4 ml/min 02/21/17 04:51 BUN/Creatinine Ratio 7.70 % 02/21/17 04:51 Glucose 81 mg/dL (75-100) 02/21/17 04:51 POC Glucose 138 (70-105) H 02/21/17 10:42 Calcium 5.5 mg/dL (8.4-10.2) L* 02/21/17 04:51 Iron 91 ug/dL (49-181) 02/19/17 16:06 TIBC 195 mcg/dL (250-450) L 02/19/17 16:06 % Saturation 46.67 % 02/19/17 16:06 Transferrin 168 mg/dl (180-329) L 02/19/17 16:06 Ferritin 472.7 ng/mL (13.0-400.0) H 02/19/17 16:06 Triglycerides 156 mg/dL (2-149) H 02/19/17 07:09 Cholesterol 207 mg/dL (50-199) H 02/19/17 07:09 LDL Cholesterol Direct 147 mg/dL (50-130) H 02/19/17 07:09 HDL Cholesterol 29 mg/dL (40-59) L 02/19/17 07:09 Cholesterol/HDL Ratio 7.13 % 02/19/17 07:09 Urine Color Straw (Yellow) 02/20/17 00:20 Urine Turbidity Clear (Clear) 02/20/17 00:20 Urine pH 6.0 (5.0-7.0) 02/20/17 00:20 Ur Specific [place] 1.011 (1.003-1.030) 02/20/17 00:20 Urine Protein >500 mg/dL (Negative) 02/20/17 00:20 Urine Glucose (UA) >=500 mg/dL (Negative) 02/20/17 00:20 Urine Ketones Neg mg/dL (Negative) 02/20/17 00:20 Urine Blood Neg (Negative) 02/20/17 00:20 Urine Nitrite Neg (Negative) 02/20/17 00:20 Urine Bilirubin Neg (Negative) 02/20/17 00:20 Urine Urobilinogen < 2.0 mg/dL (<2.0) 02/20/17 00:20 Ur Leukocyte Esterase Neg (Negative) 02/20/17 00:20 Urine WBC (Auto) 1.0 /HPF (0.0-6.0) 02/20/17 00:20 Urine RBC (Auto) < 1.0 /HPF (0.0-6.0) 02/20/17 00:20 Urine Eosinophils >5% (None Seen) 02/20/17 00:20 Urine Total Volume 950 02/21/17 02:00 Urine Creatinine 82.2 mg/dL (0.1-20.0) H 02/21/17 02:00 Ur Creatinine 24 Hour 0.8 (0.8-2.8) 02/21/17 02:00 Urine Sodium 73 mEq/L 02/21/17 02:00 Ur Sodium 24 Hour 69.4 (40-220) 02/21/17 02:00 Hepatitis A IgM Ab Non-reactive (NonReactive) 02/19/17 16:06 Hep Bs Antigen Non-reactive (Negative) 02/19/17 16:06 Hep B Core IgM Ab Non-reactive (NonReactive) 02/19/17 16:06 Hepatitis C Antibody Non-reactive (NonReactive) 02/19/17 16:06
[2017-02-21] MEDS: NORVASC PO SCH (13:16)
[2017-02-21] MEDS: NORMODYNE PO SCH ×2 (13:16→22:50)
--- NOTE | 2017-02-21 13:57 | XRay Report ---
ROUTINE CHEST, TWO VIEWS: HISTORY: Hypertension. Mild central pulmonary venous congestion and small left pleural effusion are identified. The lungs are clear otherwise. No evidence for pneumonia or pneumothorax. Heart size is within normal limits. IMPRESSION: Pulmonary venous congestion and small left pleural effusion.
[2017-02-21] MEDS ORDERED: VERSED ONE (14:29)
[2017-02-21] MEDS ORDERED: XYLOCAINE 2% INFILTRATI ONE (14:29)
[2017-02-21] MEDS ORDERED: SUBLIMAZE ONE (14:29)
[2017-02-21] MEDS ORDERED: HEPARIN/NS 5000 UNIT/500ML(CATH LAB) 500 ML IR ONE (14:29)
[2017-02-21] MEDS ORDERED: NACL 0.9% 250ML 250 ML ONE (14:29)
[2017-02-21] MEDS ORDERED: ANCEF/STERILE WATER 2 GM/20 ML 2 GM/20 ML SYRINGE IV ONE (14:30)
[2017-02-21] MEDS: HEPARIN 10,000 UNITS/10 ML ONE ×2 (15:10→15:12)
--- NOTE | 2017-02-21 16:28 | Operative Report ---
Operative Report Operative Report: Date of Procedure: 02/21/2017 Pre-operative Diagnosis: Renal failure Post-operative Diagnosis: Same Procedure(s): 1. Ultrasound-Guided Access Right Internal Jugular Vein 2. Placement of 16 Cm Pre-Curved Vas-Cath 3. Radiologic Supervision with Interpretation Surgeon: John Lehman M.D. Top Ironer: None Anesthesia: Local and IV sedation EBL: Minimal Counts: Correct Complications: None Condition: Stable Findings: Successful placement of right internal jugular vas cath with tip in the right atrium and no evidence of pneumothorax at the completion of the procedure. Specimen: None Indication: The patient is a 51-year-old male with a history of acute on chronic renal failure who is in need of urgent dialysis. He does not currently have access and therefore requires temporary access. He was given the risk, benefits, and alternative procedures and consented to the procedure. Description of Procedure: The patient was brought to the [place] and laid in supine position. After he was adequately sedated his right neck and chest were prepped and draped in normal sterile fashion. Ultrasound was used to identify the right internal jugular vein and the overlying skin and soft tissue was anesthetized with lidocaine. A small stab incision was made and then the access needle was used with ultrasound guidance and the right internal jugular vein and a 0.035 J-wire was advanced into the central venous system under fluoroscopy. The tract was dilated and then the Vas-Cath was inserted by Seldinger technique with the tip in the right atrium. Both ports were then aspirated and flushed and then primed to perform on heparin. The catheter was then secured in place using a 2- 0 Ethilon and then dressed sterilely. Final fluoroscopy demonstrated the catheter was in good position without evidence of pneumothorax. The patient tolerated the procedure well. All sponge, needle, and instrument counts were correct. The patient was taken to the recovery area in stable condition.
[2017-02-21] MEDS: ROCALTROL PO SCH (19:25)
[2017-02-21] MEDS: ZOCOR PO SCH (22:50)
[2017-02-22 05:07] LABS: BUN/Creatinine Ratio 6.1; Calcium 6.7 mg/dL (8.4-10.2); Chloride 100.2 mmol/L (98-107)
--- NOTE | 2017-02-22 07:42 | Vascular Lab Report ---
MISCELLANEOUS VESSEL IDENTIFICATION: COMMENTS ON THE SCAN: The right internal jugular vein was identified and under real-time ultrasound guidance was cannulated. IMPRESSION: Successful ultrasound guided vein cannulation.
--- NOTE | 2017-02-22 07:54 | Vascular Lab Report ---
CAROTID DUPLEX STUDY: RIGHT PSVEDV CCA PROX:[id number] CCA DIST:5822 ICA PROX:5725 ICA MID:9143 ICA DIST:8834 ECA: 84 VERT: 62 24 LEFT PSVEDV CCA PROX:9123 CCA DIST:7323 ICA PROX:9241 ICA MID:14416 ICA DIST:8934 ECA: 66 VERT: 45 17 REASON FOR EXAM: CVA. COMMENTS ON THE RIGHT: Doppler frequency analysis is consistent with 16 to 49 percent diameter reduction of the internal carotid artery. Minimal amount of plaque is seen. The common carotid artery is patent. The external carotid artery is patent. The vertebral artery has antegrade flow. COMMENTS ON THE LEFT: Doppler frequency analysis is consistent with 16 to 49 percent diameter reduction of the internal carotid artery. Minimal amount of plaque is seen. The common carotid artery is patent. The external carotid artery is patent. The vertebral artery has antegrade flow. IMPRESSION: Less than 50% diameter reduction in the internal carotid arteries bilaterally. Consider repeat carotid artery duplex in 12 months.
[2017-02-22] MEDS ORDERED: HEPARIN 10,000 UNITS/10 ML IV PRN (08:17)
[2017-02-22] MEDS ORDERED: NACL 0.9% 1000 ML 1,000 ML IV PRN (08:17)
[2017-02-22] MEDS ORDERED: NACL 0.9% 100 ML IV PRN (08:17)
--- NOTE | 2017-02-22 08:24 | Progress Note ---
Assessment and Plan Impression: * Acute kidney injury vs new ESRD --Renal ultrasound reviewed - patient with echogenic changes concerning for chronic disease * Accelerated hypertension * Type II diabetes mellitus * Anemia * Hypocalcemia secondary to secondary hyperPTH Plan: * HD today and tomorrow. Will need permcath placement * Continue Calcitriol and adjust Ca bath with dialysis * Epogen with dialysis * Serologic work up pending * Continue BP medications - BP control improved * Avoid nephrotoxins * Dose medications for renal function * CM consulted to assist with outpatient hemodialysis Subjective Date of service: 02/22/17 Interval history: ODELL Jamison assists in translating. Patient has no complaints. He is feeling well. He denies nausea, vomiting. Breathing is good. No issues with dialysis. Objective - Vital Signs Vital signs: Vital Signs - 12hr 02/21/17 02/21/17 02/21/17 22:48 22:50 23:13 Temperature 98.6 F Pulse Rate 91 H Respiratory 18 Rate Blood Pressure 142/74 142/74 145/79 O2 Sat by Pulse Oximetry 02/22/17 02/22/17 04:55 07:35 Temperature 97.7 F 98.0 F Pulse Rate 85 86 Respiratory 18 20 Rate Blood Pressure 152/80 146/79 O2 Sat by Pulse 97 96 Oximetry - General Appearance General appearance: well-developed, well-nourished EENT: ATNC Respiratory: Present: Clear to Ascultation Cardiology: regular, S1S2 Gastrointestinal: normal, no tenderness, no distended Integumentary: no rash Musculoskeletal: other (no edema) Psychiatric: cooperative - Lab 02/19/17 07:09 02/23/17 04:50 Most recent lab results Calcium 6.7 mg/dL (8.4-10.2) L D 02/22/17 04:33 Urine Creatinine 82.2 mg/dL (0.1-20.0) H 02/21/17 02:00 Urine Sodium 73 mEq/L 02/21/17 02:00
[2017-02-22] MEDS: LOVENOX SUB-Q SCH (10:10)
[2017-02-22] MEDS: ROCALTROL PO SCH (10:10)
[2017-02-22] MEDS ORDERED: NACL 0.9 (PRIMING MACHINE ONLY DIALYSIS) MC ONE (13:53)
[2017-02-22] MEDS: PROCRIT IV PRN (15:39)
[2017-02-22] MEDS: HEPARIN IV PRN (15:41)
--- NOTE | 2017-02-22 15:52 | Progress Note ---
Assessment and Plan Assessment and plan: --Acute renal failure vs ESRD. Nephrology following, hemodialysis as needed --Hyperkalemia. Resolved --Malignant Hypertension, moderate control continue current antihypertensives add hydralazine 25 mg 3 times a day, IV hydralazine when necessary --Possible ACUTE CVA ; workup with CT head , moderate , in moderate , carotid Doppler echocardiogram negative Continue supportive care --Diabetes mellitus type 2. Accu-Cheks and sliding scale insulin. --Hypocalcemia, secondary to hyperparathyroidism, improving --Dvt prophylaxis; Lovenox renal dose Consults and recommendations noted and appreciated Plan of care was discussed with the patient and the family member History Interval history: Patient is scheduled for hemodialysis today No new events reported by the nursing staff, patient feels better Hospitalist Physical - Constitutional Vitals: Temp Pulse Resp BP Pulse Ox 98.4 F 89 20 180/98 96 02/22/17 13:35 02/22/17 13:35 02/22/17 13:35 02/22/17 13:35 02/22/17 07:35 General appearance: Present: no acute distress, well-nourished - EENT Eyes: Present: PERRL, EOM intact - Neck Neck: Present: supple, normal ROM - Respiratory Respiratory effort: normal Respiratory: negative: rales, rhonchi, wheezing - Cardiovascular Rhythm: regular Heart Sounds: Present: S1 & S2 - Extremities Extremities: no ischemia, No edema - Abdominal General gastrointestinal: soft, non-tender, non-distended, normal bowel sounds - Integumentary Integumentary: Present: clear, warm - Psychiatric Psychiatric: appropriate mood/affect, cooperative - Neurologic Neurologic: CNII-XII intact, moves all extremities Results - Labs CBC & Chem 7: 02/19/17 07:09 02/22/17 04:33 Labs: Laboratory Last Values WBC 5.9 K/mm3 (4.5-11.0) 02/19/17 07:09 RBC 2.98 M/mm3 (3.65-5.03) L 02/19/17 07:09 Hgb 9.0 gm/dl (11.8-15.2) L 02/19/17 07:09 Hct 26.6 % (35.5-45.6) L 02/19/17 07:09 MCV 89 fl (84-94) 02/19/17 07:09 MCH 30 pg (28-32) 02/19/17 07:09 MCHC 34 % (32-34) 02/19/17 07:09 RDW 13.0 % (13.2-15.2) L 02/19/17 07:09 Plt Count 207 K/mm3 (140-440) 02/19/17 07:09 Lymph % (Auto) 14.4 % (13.4-35.0) 02/19/17 07:09 [place] % (Auto) 8.8 % (0.0-7.3) H 02/19/17 07:09 Eos % (Auto) 14.0 % (0.0-4.3) H 02/19/17 07:09 Baso % (Auto) 0.6 % (0.0-1.8) 02/19/17 07:09 Lymph # 0.9 K/mm3 (1.2-5.4) L 02/19/17 07:09 [place] # 0.5 K/mm3 (0.0-0.8) 02/19/17 07:09 Eos # 0.8 K/mm3 (0.0-0.4) H 02/19/17 07:09 Baso # 0.0 K/mm3 (0.0-0.1) 02/19/17 07:09 Seg Neutrophils % 62.2 % (40.0-70.0) 02/19/17 07:09 Seg Neutrophils # 3.7 K/mm3 (1.8-7.7) 02/19/17 07:09 Sodium 141 mmol/L (137-145) 02/22/17 04:33 Potassium 4.0 mmol/L (3.6-5.0) D 02/22/17 04:33 Chloride 100.2 mmol/L (98-107) 02/22/17 04:33 Carbon Dioxide 23 mmol/L (22-30) 02/22/17 04:33 Anion Gap 22 mmol/L 02/22/17 04:33 BUN 61 mg/dL (9-20) H 02/22/17 04:33 Creatinine 10.0 mg/dL (0.8-1.5) H 02/22/17 04:33 Estimated GFR 6 ml/min 02/22/17 04:33 BUN/Creatinine Ratio 6.10 % 02/22/17 04:33 Glucose 84 mg/dL (75-100) 02/22/17 04:33 POC Glucose 91 (70-105) 02/22/17 06:35 Calcium 6.7 mg/dL (8.4-10.2) L D 02/22/17 04:33 Iron 91 ug/dL (49-181) 02/19/17 16:06 TIBC 195 mcg/dL (250-450) L 02/19/17 16:06 % Saturation 46.67 % 02/19/17 16:06 Transferrin 168 mg/dl (180-329) L 02/19/17 16:06 Ferritin 472.7 ng/mL (13.0-400.0) H 02/19/17 16:06 Triglycerides 156 mg/dL (2-149) H 02/19/17 07:09 Cholesterol 207 mg/dL (50-199) H 02/19/17 07:09 LDL Cholesterol Direct 147 mg/dL (50-130) H 02/19/17 07:09 HDL Cholesterol 29 mg/dL (40-59) L 02/19/17 07:09 Cholesterol/HDL Ratio 7.13 % 02/19/17 07:09 Urine Color Straw (Yellow) 02/20/17 00:20 Urine Turbidity Clear (Clear) 02/20/17 00:20 Urine pH 6.0 (5.0-7.0) 02/20/17 00:20 Ur Specific [place] 1.011 (1.003-1.030) 02/20/17 00:20 Urine Protein >500 mg/dL (Negative) 02/20/17 00:20 Urine Glucose (UA) >=500 mg/dL (Negative) 02/20/17 00:20 Urine Ketones Neg mg/dL (Negative) 02/20/17 00:20 Urine Blood Neg (Negative) 02/20/17 00:20 Urine Nitrite Neg (Negative) 02/20/17 00:20 Urine Bilirubin Neg (Negative) 02/20/17 00:20 Urine Urobilinogen < 2.0 mg/dL (<2.0) 02/20/17 00:20 Ur Leukocyte Esterase Neg (Negative) 02/20/17 00:20 Urine WBC (Auto) 1.0 /HPF (0.0-6.0) 02/20/17 00:20 Urine RBC (Auto) < 1.0 /HPF (0.0-6.0) 02/20/17 00:20 Urine Eosinophils >5% (None Seen) 02/20/17 00:20 Urine Total Volume 950 02/21/17 02:00 Urine Creatinine 82.2 mg/dL (0.1-20.0) H 02/21/17 02:00 Ur Creatinine 24 Hour 0.8 (0.8-2.8) 02/21/17 02:00 Urine Sodium 73 mEq/L 02/21/17 02:00 Ur Sodium 24 Hour 69.4 (40-220) 02/21/17 02:00 Complement C3 98 mg/dL (90-180) 02/19/17 16:45 Complement C4 25 mg/dL (16-47) 02/19/17 16:45 Hepatitis A IgM Ab Non-reactive (NonReactive) 02/19/17 16:06 Hep Bs Antigen Non-reactive (Negative) 02/19/17 16:06 Hep B Core IgM Ab Non-reactive (NonReactive) 02/19/17 16:06 Hepatitis C Antibody Non-reactive (NonReactive) 02/19/17 16:06
[2017-02-22] MEDS ORDERED: APRESOLINE IV PRN (15:59)
[2017-02-22] MEDS: NORVASC PO SCH (16:15)
[2017-02-22] MEDS: NORMODYNE PO SCH ×2 (16:15→22:12)
[2017-02-22 20:45] LABS: Myeloperoxidase Antibody <1.0 AI (<1.0)
[2017-02-22] MEDS: ZOCOR PO SCH (22:12)
[2017-02-22] MEDS: APRESOLINE PO SCH (22:13)
[2017-02-23] MEDS: APRESOLINE PO SCH ×3 (05:19→22:37)
[2017-02-23 05:30] LABS: BUN/Creatinine Ratio 5.28; Calcium 6.8 mg/dL (8.4-10.2); Potassium 3.7 mmol/L (3.6-5.0)
--- NOTE | 2017-02-23 08:48 | Progress Note ---
Assessment and Plan Impression: * Acute kidney injury vs new ESRD --Renal ultrasound reviewed - patient with echogenic changes concerning for chronic disease * Accelerated hypertension * Type II diabetes mellitus * Anemia * Hypocalcemia secondary to secondary hyperPTH Plan: * HD today; continue TTS schedule. Will need permcath placement * Continue Calcitriol and adjust Ca bath with dialysis * Epogen with dialysis * Serologic work up pending * Continue BP medications - BP control improved * Avoid nephrotoxins * Dose medications for renal function * CM consulted to assist with outpatient hemodialysis Subjective Date of service: 02/23/17 Interval history: Patient has no complaints today. Objective - Vital Signs Vital signs: Vital Signs - 12hr 02/22/17 02/22/17 02/22/17 22:00 22:10 22:12 Temperature Pulse Rate 85 84 Pulse Rate [ 84 Left Radial] Respiratory Rate Blood Pressure 133/71 133/71 O2 Sat by Pulse 97 Oximetry 02/22/17 02/22/17 02/23/17 22:13 23:15 04:48 Temperature 99.0 F 98.8 F Pulse Rate 84 84 82 Pulse Rate [ Left Radial] Respiratory 18 18 Rate Blood Pressure 133/71 111/66 131/71 O2 Sat by Pulse 95 97 Oximetry 02/23/17 02/23/17 05:19 08:11 Temperature 98.7 F Pulse Rate 82 Pulse Rate [ Left Radial] Respiratory 22 Rate Blood Pressure 131/71 148/78 O2 Sat by Pulse Oximetry - General Appearance General appearance: well-developed, well-nourished EENT: ATNC Respiratory: Present: Clear to Ascultation Cardiology: regular, S1S2 Gastrointestinal: normal, no tenderness, no distended Integumentary: no rash Musculoskeletal: other (no edema) Psychiatric: cooperative - Lab 02/19/17 07:09 02/23/17 04:50 Most recent lab results Calcium 6.8 mg/dL (8.4-10.2) L 02/23/17 04:50 Urine Creatinine 82.2 mg/dL (0.1-20.0) H 02/21/17 02:00 Urine Sodium 73 mEq/L 02/21/17 02:00
[2017-02-23] MEDS ORDERED: NACL 0.9% 100 ML IV PRN (09:30)
[2017-02-23] MEDS: LOVENOX SUB-Q SCH (10:25)
[2017-02-23] MEDS: NORVASC PO SCH (10:26)
[2017-02-23] MEDS: ROCALTROL PO SCH (10:26)
[2017-02-23] MEDS: NORMODYNE PO SCH ×2 (10:26→22:41)
[2017-02-23] MEDS ORDERED: NACL 0.9 (PRIMING MACHINE ONLY DIALYSIS) MC ONE (14:15)
[2017-02-23] MEDS: HEPARIN IV PRN (16:34)
[2017-02-23 18:10] LABS: Albumin 2.8 g/dL (3.8-4.8); Gamma Globulin 0.6 g/dL (0.8-1.7)
--- NOTE | 2017-02-23 20:27 | Progress Note ---
Assessment and Plan Assessment and plan: --Acute renal failure vs ESRD. Nephrology following, hemodialysis as needed --Hyperkalemia. Resolved --Malignant Hypertension, moderate control continue current antihypertensives add hydralazine 25 mg 3 times a day, IV hydralazine when necessary --Possible ACUTE CVA ; workup with CT head , moderate , in moderate , carotid Doppler echocardiogram negative Continue supportive care --Diabetes mellitus type 2. Accu-Cheks and sliding scale insulin. --Hypocalcemia, secondary to hyperparathyroidism, improving --Dvt prophylaxis; Lovenox renal dose Consults and recommendations noted and appreciated Plan of care was discussed with the patient and the family member History Interval history: Patient seen and examined Face better no new complaints Hospitalist Physical - Constitutional Vitals: Temp Pulse Resp BP Pulse Ox 98.6 F 85 14 144/73 98 02/23/17 19:26 02/23/17 19:26 02/23/17 19:26 02/23/17 19:26 02/23/17 19:26 General appearance: Present: no acute distress, well-nourished - EENT Eyes: Present: PERRL, EOM intact - Neck Neck: Present: supple, normal ROM - Respiratory Respiratory effort: normal Respiratory: bilateral: diminished, negative: rales, rhonchi, wheezing - Cardiovascular Rhythm: regular Heart Sounds: Present: S1 & S2 - Extremities Extremities: no ischemia, No edema - Abdominal General gastrointestinal: soft, non-tender, non-distended, normal bowel sounds - Integumentary Integumentary: Present: clear, warm - Psychiatric Psychiatric: appropriate mood/affect, cooperative - Neurologic Neurologic: CNII-XII intact, moves all extremities Results - Labs CBC & Chem 7: 02/19/17 07:09 02/23/17 04:50 Labs: Laboratory Last Values WBC 5.9 K/mm3 (4.5-11.0) 02/19/17 07:09 RBC 2.98 M/mm3 (3.65-5.03) L 02/19/17 07:09 Hgb 9.0 gm/dl (11.8-15.2) L 02/19/17 07:09 Hct 26.6 % (35.5-45.6) L 02/19/17 07:09 MCV 89 fl (84-94) 02/19/17 07:09 MCH 30 pg (28-32) 02/19/17 07:09 MCHC 34 % (32-34) 02/19/17 07:09 RDW 13.0 % (13.2-15.2) L 02/19/17 07:09 Plt Count 207 K/mm3 (140-440) 02/19/17 07:09 Lymph % (Auto) 14.4 % (13.4-35.0) 02/19/17 07:09 [place] % (Auto) 8.8 % (0.0-7.3) H 02/19/17 07:09 Eos % (Auto) 14.0 % (0.0-4.3) H 02/19/17 07:09 Baso % (Auto) 0.6 % (0.0-1.8) 02/19/17 07:09 Lymph # 0.9 K/mm3 (1.2-5.4) L 02/19/17 07:09 [place] # 0.5 K/mm3 (0.0-0.8) 02/19/17 07:09 Eos # 0.8 K/mm3 (0.0-0.4) H 02/19/17 07:09 Baso # 0.0 K/mm3 (0.0-0.1) 02/19/17 07:09 Seg Neutrophils % 62.2 % (40.0-70.0) 02/19/17 07:09 Seg Neutrophils # 3.7 K/mm3 (1.8-7.7) 02/19/17 07:09 Sodium 140 mmol/L (137-145) 02/23/17 04:50 Potassium 3.7 mmol/L (3.6-5.0) 02/23/17 04:50 Chloride 99.0 mmol/L (98-107) 02/23/17 04:50 Carbon Dioxide 27 mmol/L (22-30) 02/23/17 04:50 Anion Gap 18 mmol/L 02/23/17 04:50 BUN 37 mg/dL (9-20) H 02/23/17 04:50 Creatinine 7.0 mg/dL (0.8-1.5) H 02/23/17 04:50 Estimated GFR 8 ml/min 02/23/17 04:50 BUN/Creatinine Ratio 5.28 % 02/23/17 04:50 Glucose 102 mg/dL (75-100) H 02/23/17 04:50 POC Glucose 184 (70-105) H 02/23/17 16:58 Calcium 6.8 mg/dL (8.4-10.2) L 02/23/17 04:50 Iron 91 ug/dL (49-181) 02/19/17 16:06 TIBC 195 mcg/dL (250-450) L 02/19/17 16:06 % Saturation 46.67 % 02/19/17 16:06 Transferrin 168 mg/dl (180-329) L 02/19/17 16:06 Ferritin 472.7 ng/mL (13.0-400.0) H 02/19/17 16:06 Serum Total Protein 5.1 g/dL (6.1-8.1) L 02/19/17 16:06 Albumin 2.8 g/dL (3.8-4.8) L 02/19/17 16:06 Qartl-3-Qcmuxjcsl 0.3 g/dL (0.2-0.3) 02/19/17 16:06 Okchh-6-Zqkuvnqet 0.9 g/dL (0.5-0.9) 02/19/17 16:06 Beta Globulins 0.2 g/dL (0.2-0.5) 02/19/17 16:06 Gamma Globulins 0.6 g/dL (0.8-1.7) L 02/19/17 16:06 Abnorm Protein Band 1 see below 02/19/17 16:06 PEP Interpretation see below H 02/19/17 16:06 Triglycerides 156 mg/dL (2-149) H 02/19/17 07:09 Cholesterol 207 mg/dL (50-199) H 02/19/17 07:09 LDL Cholesterol Direct 147 mg/dL (50-130) H 02/19/17 07:09 HDL Cholesterol 29 mg/dL (40-59) L 02/19/17 07:09 Cholesterol/HDL Ratio 7.13 % 02/19/17 07:09 Urine Color Straw (Yellow) 02/20/17 00:20 Urine Turbidity Clear (Clear) 02/20/17 00:20 Urine pH 6.0 (5.0-7.0) 02/20/17 00:20 Ur Specific [place] 1.011 (1.003-1.030) 02/20/17 00:20 Urine Protein >500 mg/dL (Negative) 02/20/17 00:20 Urine Glucose (UA) >=500 mg/dL (Negative) 02/20/17 00:20 Urine Ketones Neg mg/dL (Negative) 02/20/17 00:20 Urine Blood Neg (Negative) 02/20/17 00:20 Urine Nitrite Neg (Negative) 02/20/17 00:20 Urine Bilirubin Neg (Negative) 02/20/17 00:20 Urine Urobilinogen < 2.0 mg/dL (<2.0) 02/20/17 00:20 Ur Leukocyte Esterase Neg (Negative) 02/20/17 00:20 Urine WBC (Auto) 1.0 /HPF (0.0-6.0) 02/20/17 00:20 Urine RBC (Auto) < 1.0 /HPF (0.0-6.0) 02/20/17 00:20 Urine Eosinophils >5% (None Seen) 02/20/17 00:20 Urine Total Volume 950 02/21/17 02:00 Urine Creatinine 82.2 mg/dL (0.1-20.0) H 02/21/17 02:00 Ur Creatinine 24 Hour 0.8 (0.8-2.8) 02/21/17 02:00 Urine Sodium 73 mEq/L 02/21/17 02:00 Ur Sodium 24 Hour 69.4 (40-220) 02/21/17 02:00 Proteinase 3 (PR3) Ab <1.0 AI (<1.0) 02/19/17 16:06 Myeloperoxidase Ab <1.0 AI (<1.0) 02/19/17 16:06 Complement C3 98 mg/dL (90-180) 02/19/17 16:45 Complement C4 25 mg/dL (16-47) 02/19/17 16:45 Hepatitis A IgM Ab Non-reactive (NonReactive) 02/19/17 16:06 Hep Bs Antigen Non-reactive (Negative) 02/19/17 16:06 Hep B Core IgM Ab Non-reactive (NonReactive) 02/19/17 16:06 Hepatitis C Antibody Non-reactive (NonReactive) 02/19/17 16:06
[2017-02-23] MEDS: ZOCOR PO SCH (22:37)
[2017-02-24] MEDS: APRESOLINE PO SCH ×3 (05:52→22:55)
[2017-02-24 06:46] LABS: BUN/Creatinine Ratio 3.77; Calcium 7.3 mg/dL (8.4-10.2)
[2017-02-24 06:47] LABS: Chloride 99.5 mmol/L (98-107); Potassium 3.5 mmol/L (3.6-5.0)
[2017-02-24] MEDS ORDERED: ANCEF/STERILE WATER 2 GM/20 ML 2 GM/20 ML SYRINGE IV NR (08:00)
[2017-02-24] MEDS ORDERED: VERSED ONE (12:44)
[2017-02-24] MEDS ORDERED: HEPARIN/NS 5000 UNIT/500ML(CATH LAB) 500 ML IR ONE (12:44)
[2017-02-24] MEDS ORDERED: SUBLIMAZE ONE (12:45)
[2017-02-24] MEDS ORDERED: ANCEF/STERILE WATER 2 GM/20 ML 2 GM/20 ML SYRINGE IV ONE (12:45)
[2017-02-24] MEDS ORDERED: XYLOCAINE 2% INFILTRATI ONE (12:45)
--- NOTE | 2017-02-24 13:24 | Progress Note ---
Assessment and Plan Impression: * ESRD --Renal ultrasound reviewed - patient with echogenic changes concerning for chronic disease * Accelerated hypertension * Type II diabetes mellitus * Anemia * Hypocalcemia secondary to secondary hyperPTH Plan: * HD TTS schedule. Will need permcath placement * Continue Calcitriol and adjust Ca bath with dialysis * Epogen with dialysis * Serologic work up pending * Continue BP medications - BP control improved * Avoid nephrotoxins * Dose medications for renal function * CM consulted to assist with outpatient hemodialysis Subjective Date of service: 02/24/17 Principal diagnosis: esrd Interval history: resting well in bed today Objective - Exam Narrative Exam: General appearance: well-developed, well-nourished EENT: ATNC Respiratory: Present: Clear to Ascultation Cardiology: regular, S1S2 Gastrointestinal: normal, no tenderness, no distended Integumentary: no rash Musculoskeletal: other (no edema) Psychiatric: cooperative - Vital Signs Vital signs: Vital Signs - 12hr 02/24/17 02/24/17 02/24/17 03:38 05:52 08:12 Temperature 98.7 F 98.4 F Pulse Rate 81 83 Respiratory 14 15 Rate Blood Pressure 141/77 141/77 155/80 O2 Sat by Pulse 98 98 Oximetry - Lab 02/19/17 07:09 02/24/17 05:36 Most recent lab results Calcium 7.3 mg/dL (8.4-10.2) L 02/24/17 05:36 Urine Creatinine 82.2 mg/dL (0.1-20.0) H 02/21/17 02:00 Urine Sodium 73 mEq/L 02/21/17 02:00
[2017-02-24] MEDS ORDERED: NACL 0.9% 250ML 250 ML ONE (14:06)
[2017-02-24] MEDS: HEPARIN 10,000 UNITS/10 ML ONE ×2 (14:25→14:26)
--- NOTE | 2017-02-24 14:54 | Operative Report ---
Operative Report Operative Report: EXAM: 1. Fluoroscopic-guided conversion of a right internal jugular non-tunneled non- cuffed hemodialysis catheter to a tunneled cuffed hemodialysis catheter. DATE: 02/24/17 INDICATION: End-stage renal disease requiring hemodialysis access. MEDICATIONS: Please see nursing report for full details. DEVICES: 23 cm tip to cuff dual lumen hemodialysis catheter FOAM MOLDER: ABRAHAN RODRIGUEZ MD CONTRAST: None PROCEDURE: The risks, benefits, and alternatives were discussed and informed consent was obtained. The patient was transported to the angiography suite in satisfactory/ stable condition and was transported onto the angiography table. The patient was prepped and draped in a sterile fashion. The existing vascath was prepped and draped in a sterile fashion. Suture was cut. 0.035 inch wire was advanced through the Vas-Cath into the IVC. Vas-Cath was removed. The wire was cleaned with ChloraPrep. Over the 0.035 inch wire, serial dilatation was performed with ultimate placement of a peel-away sheath. Reverse tunneled PermCath was inserted to the peel-away sheath and positioned in the right atrium. Peel-away sheath removed. A suitable exit site was identified on the patient's chest inferior and lateral to the venotomy. The site was anesthetized with local anesthetic and the track was anesthetized. Dermatotomy was made. Reverse tunneler was then tunneled from dermatotomy to the venotomy site/catheter. The PermCath was attached to the tunneling device and reverse tunneled between the dermatotomy to the venotomy. The catheter was reassembled. 4-0 Vicryl suture was used to close the venotomy and Dermabond was then applied. 2-0 Ethilon suture was used to secure the catheter at the dermatotomy. The catheter was charged with heparin 1000 units/mL space. Sterile dressing and Biopatch applied. The patient was transferred from the angiography suite back to the floor in stable condition. FINDINGS: 1. Excellent flow was obtained through the dialysis catheter with 20 mL syringes. 2. The catheter tip is in the right atrium. IMPRESSION: 1. Fluoroscopic-guided conversion of a right internal jugular non-tunneled non- cuffed hemodialysis catheter to a tunneled cuffed hemodialysis catheter.
[2017-02-24] MEDS: LOVENOX SUB-Q SCH (15:59)
[2017-02-24] MEDS: NORVASC PO SCH (15:59)
[2017-02-24] MEDS: ROCALTROL PO SCH (16:00)
[2017-02-24] MEDS: NORMODYNE PO SCH ×2 (16:00→22:55)
--- NOTE | 2017-02-24 19:53 | Progress Note ---
Assessment and Plan Assessment and plan: -- ESRD : Hemodialysis per schedule, patient received tunnelled hemodialysis catheter Outpatient hemodialysis chair and be set up by case management --Malignant Hypertension,: Well-controlled, continue labetalol ,hydralazine and Norvasc, when necessary hydralazine --Possible ACUTE CVA ; workup with CT head , moderate , in moderate , carotid Doppler echocardiogram negative Continue supportive care --Diabetes mellitus type 2. Accu-Cheks and sliding scale insulin. --Hypocalcemia, secondary to hyperparathyroidism, improving --Anemia of chronic kidney disease; Procrit during dialysis, closely monitored --Dvt prophylaxis; Lovenox renal dose Discharge planning per case management, outpatient HD scheduling Plan of Care discussed with the patient and his at the bedside History Interval history: Patient received tunnel cuffed hemodialysis catheter today Complaints of some weakness and dizziness Alert awake oriented 3 not in acute distress Vital signs reviewed Hospitalist Physical - Constitutional Vitals: Temp Pulse Resp BP Pulse Ox 97.0 F L 80 18 146/76 98 02/24/17 15:53 02/24/17 15:54 02/24/17 15:53 02/24/17 15:53 02/24/17 15:54 General appearance: Present: no acute distress, well-nourished - EENT Eyes: Present: PERRL, EOM intact - Neck Neck: Present: supple, normal ROM - Respiratory Respiratory effort: normal Respiratory: negative: rales, rhonchi, wheezing - Cardiovascular Rhythm: regular Heart Sounds: Present: S1 & S2 - Extremities Extremities: no ischemia, No edema Peripheral Pulses: within normal limits - Abdominal General gastrointestinal: soft, non-tender, non-distended, normal bowel sounds - Integumentary Integumentary: Present: clear, warm - Psychiatric Psychiatric: appropriate mood/affect, cooperative - Neurologic Neurologic: CNII-XII intact, moves all extremities Results - Labs CBC & Chem 7: 02/19/17 07:09 02/24/17 05:36 Labs: Laboratory Last Values WBC 5.9 K/mm3 (4.5-11.0) 02/19/17 07:09 RBC 2.98 M/mm3 (3.65-5.03) L 02/19/17 07:09 Hgb 9.0 gm/dl (11.8-15.2) L 02/19/17 07:09 Hct 26.6 % (35.5-45.6) L 02/19/17 07:09 MCV 89 fl (84-94) 02/19/17 07:09 MCH 30 pg (28-32) 02/19/17 07:09 MCHC 34 % (32-34) 02/19/17 07:09 RDW 13.0 % (13.2-15.2) L 02/19/17 07:09 Plt Count 207 K/mm3 (140-440) 02/19/17 07:09 Lymph % (Auto) 14.4 % (13.4-35.0) 02/19/17 07:09 [place] % (Auto) 8.8 % (0.0-7.3) H 02/19/17 07:09 Eos % (Auto) 14.0 % (0.0-4.3) H 02/19/17 07:09 Baso % (Auto) 0.6 % (0.0-1.8) 02/19/17 07:09 Lymph # 0.9 K/mm3 (1.2-5.4) L 02/19/17 07:09 [place] # 0.5 K/mm3 (0.0-0.8) 02/19/17 07:09 Eos # 0.8 K/mm3 (0.0-0.4) H 02/19/17 07:09 Baso # 0.0 K/mm3 (0.0-0.1) 02/19/17 07:09 Seg Neutrophils % 62.2 % (40.0-70.0) 02/19/17 07:09 Seg Neutrophils # 3.7 K/mm3 (1.8-7.7) 02/19/17 07:09 Sodium 139 mmol/L (137-145) 02/24/17 05:36 Potassium 3.5 mmol/L (3.6-5.0) L 02/24/17 05:36 Chloride 99.5 mmol/L (98-107) 02/24/17 05:36 Carbon Dioxide 27 mmol/L (22-30) 02/24/17 05:36 Anion Gap 16 mmol/L 02/24/17 05:36 BUN 23 mg/dL (9-20) H 02/24/17 05:36 Creatinine 6.1 mg/dL (0.8-1.5) H 02/24/17 05:36 Estimated GFR 10 ml/min 02/24/17 05:36 BUN/Creatinine Ratio 3.77 % 02/24/17 05:36 Glucose 101 mg/dL (75-100) H 02/24/17 05:36 POC Glucose 184 (70-105) H 02/24/17 16:14 Calcium 7.3 mg/dL (8.4-10.2) L 02/24/17 05:36 Iron 91 ug/dL (49-181) 02/19/17 16:06 TIBC 195 mcg/dL (250-450) L 02/19/17 16:06 % Saturation 46.67 % 02/19/17 16:06 Transferrin 168 mg/dl (180-329) L 02/19/17 16:06 Ferritin 472.7 ng/mL (13.0-400.0) H 02/19/17 16:06 Serum Total Protein 5.1 g/dL (6.1-8.1) L 02/19/17 16:06 Albumin 2.8 g/dL (3.8-4.8) L 02/19/17 16:06 Jqrkl-1-Hqnghrzxi 0.3 g/dL (0.2-0.3) 02/19/17 16:06 Cgxmq-8-Bmvrcuwqu 0.9 g/dL (0.5-0.9) 02/19/17 16:06 Beta Globulins 0.2 g/dL (0.2-0.5) 02/19/17 16:06 Gamma Globulins 0.6 g/dL (0.8-1.7) L 02/19/17 16:06 Abnorm Protein Band 1 see below 02/19/17 16:06 PEP Interpretation see below H 02/19/17 16:06 Triglycerides 156 mg/dL (2-149) H 02/19/17 07:09 Cholesterol 207 mg/dL (50-199) H 02/19/17 07:09 LDL Cholesterol Direct 147 mg/dL (50-130) H 02/19/17 07:09 HDL Cholesterol 29 mg/dL (40-59) L 02/19/17 07:09 Cholesterol/HDL Ratio 7.13 % 02/19/17 07:09 Urine Color Straw (Yellow) 02/20/17 00:20 Urine Turbidity Clear (Clear) 02/20/17 00:20 Urine pH 6.0 (5.0-7.0) 02/20/17 00:20 Ur Specific [place] 1.011 (1.003-1.030) 02/20/17 00:20 Urine Protein >500 mg/dL (Negative) 02/20/17 00:20 Urine Glucose (UA) >=500 mg/dL (Negative) 02/20/17 00:20 Urine Ketones Neg mg/dL (Negative) 02/20/17 00:20 Urine Blood Neg (Negative) 02/20/17 00:20 Urine Nitrite Neg (Negative) 02/20/17 00:20 Urine Bilirubin Neg (Negative) 02/20/17 00:20 Urine Urobilinogen < 2.0 mg/dL (<2.0) 02/20/17 00:20 Ur Leukocyte Esterase Neg (Negative) 02/20/17 00:20 Urine WBC (Auto) 1.0 /HPF (0.0-6.0) 02/20/17 00:20 Urine RBC (Auto) < 1.0 /HPF (0.0-6.0) 02/20/17 00:20 Urine Eosinophils >5% (None Seen) 02/20/17 00:20 Urine Total Volume 950 02/21/17 02:00 Urine Creatinine 82.2 mg/dL (0.1-20.0) H 02/21/17 02:00 Ur Creatinine 24 Hour 0.8 (0.8-2.8) 02/21/17 02:00 Urine Sodium 73 mEq/L 02/21/17 02:00 Ur Sodium 24 Hour 69.4 (40-220) 02/21/17 02:00 Proteinase 3 (PR3) Ab <1.0 AI (<1.0) 02/19/17 16:06 Myeloperoxidase Ab <1.0 AI (<1.0) 02/19/17 16:06 Complement C3 98 mg/dL (90-180) 02/19/17 16:45 Complement C4 25 mg/dL (16-47) 02/19/17 16:45 Hepatitis A IgM Ab Non-reactive (NonReactive) 02/19/17 16:06 Hep Bs Antigen Non-reactive (Negative) 02/19/17 16:06 Hep B Core IgM Ab Non-reactive (NonReactive) 02/19/17 16:06 Hepatitis C Antibody Non-reactive (NonReactive) 02/19/17 16:06
[2017-02-24] MEDS: ZOCOR PO SCH (22:56)
[2017-02-25 05:29] LABS: BUN/Creatinine Ratio 4.18; Calcium 6.9 mg/dL (8.4-10.2); Potassium 3.5 mmol/L (3.6-5.0)
[2017-02-25] MEDS: APRESOLINE PO SCH ×2 (06:07→16:31)
[2017-02-25] MEDS: ROCALTROL PO SCH ×2 (08:49→13:43)
[2017-02-25] MEDS: NORVASC PO SCH ×2 (08:50→13:42)
[2017-02-25] MEDS: LOVENOX SUB-Q SCH ×2 (08:50→13:42)
[2017-02-25] MEDS: NORMODYNE PO SCH ×2 (08:50→13:42)
--- NOTE | 2017-02-25 11:10 | Progress Note ---
Assessment and Plan Impression: * ESRD --Renal ultrasound reviewed - patient with echogenic changes concerning for chronic disease * Accelerated hypertension * Type II diabetes mellitus * Anemia * Hypocalcemia secondary to secondary hyperPTH Plan: * HD TTS schedule. s/p permcath placement * Continue Calcitriol and adjust Ca bath with dialysis * Epogen with dialysis * Serologic work up pending * Continue BP medications - BP control improved * Avoid nephrotoxins * Dose medications for renal function * CM consulted to assist with outpatient hemodialysis Subjective Date of service: 02/25/17 Principal diagnosis: esrd Interval history: resting well in bed today Objective - Exam Narrative Exam: General appearance: well-developed, well-nourished EENT: ATNC Respiratory: Present: Clear to Ascultation Cardiology: regular, S1S2 Gastrointestinal: normal, no tenderness, no distended Integumentary: no rash Musculoskeletal: other (no edema) Psychiatric: cooperative - Vital Signs Vital signs: Vital Signs - 12hr 02/25/17 02/25/17 02/25/17 06:07 08:44 08:45 Temperature 98.5 F Pulse Rate 83 83 Respiratory 18 Rate Blood Pressure 130/67 131/71 O2 Sat by Pulse 97 97 Oximetry - Lab 02/19/17 07:09 02/25/17 04:44 Most recent lab results Calcium 6.9 mg/dL (8.4-10.2) L 02/25/17 04:44 Urine Creatinine 82.2 mg/dL (0.1-20.0) H 02/21/17 02:00 Urine Sodium 73 mEq/L 02/21/17 02:00
[2017-02-25] MEDS: PROCRIT IV PRN (12:28)
--- NOTE | 2017-02-25 15:38 | Progress Note ---
Assessment and Plan Assessment and plan: --Malignant Hypertension,: Well-controlled, continue labetalol ,hydralazine and Norvasc, when necessary hydralazine -- ESRD : Hemodialysis per schedule, patient received tunnelled hemodialysis catheter Outpatient hemodialysis chair and be set up by case management --Possible ACUTE CVA ; neuro workup CT head,MRI,MRA, ,carotid Doppler echocardiogram negative --Diabetes mellitus type 2. Accu-Cheks and sliding scale insulin. --Hypocalcemia, secondary to hyperparathyroidism, improving --Anemia of chronic kidney disease; Procrit during dialysis, closely monitored --Dvt prophylaxis; Lovenox renal dose Discharge planning per case management, outpatient HD scheduling History Interval history: Patient seen and examined medical records reviewed Patient feels better no new complaints Hospitalist Physical - Constitutional Vitals: Temp Pulse Resp BP Pulse Ox 98.4 F 78 18 149/79 97 02/25/17 10:04 02/25/17 12:30 02/25/17 10:04 02/25/17 12:30 02/25/17 08:45 General appearance: Present: no acute distress, well-nourished - EENT Eyes: Present: PERRL, EOM intact - Neck Neck: Present: supple, normal ROM - Respiratory Respiratory effort: normal Respiratory: bilateral: diminished, negative: rales, rhonchi, wheezing - Cardiovascular Rhythm: regular Heart Sounds: Present: S1 & S2 - Extremities Extremities: no ischemia, No edema - Abdominal General gastrointestinal: soft, non-tender, non-distended, normal bowel sounds - Integumentary Integumentary: Present: clear, warm - Psychiatric Psychiatric: appropriate mood/affect, cooperative - Neurologic Neurologic: CNII-XII intact, moves all extremities Results - Labs CBC & Chem 7: 02/19/17 07:09 02/25/17 04:44 Labs: Laboratory Last Values WBC 5.9 K/mm3 (4.5-11.0) 02/19/17 07:09 RBC 2.98 M/mm3 (3.65-5.03) L 02/19/17 07:09 Hgb 9.0 gm/dl (11.8-15.2) L 02/19/17 07:09 Hct 26.6 % (35.5-45.6) L 02/19/17 07:09 MCV 89 fl (84-94) 02/19/17 07:09 MCH 30 pg (28-32) 02/19/17 07:09 MCHC 34 % (32-34) 02/19/17 07:09 RDW 13.0 % (13.2-15.2) L 02/19/17 07:09 Plt Count 207 K/mm3 (140-440) 02/19/17 07:09 Lymph % (Auto) 14.4 % (13.4-35.0) 02/19/17 07:09 [place] % (Auto) 8.8 % (0.0-7.3) H 02/19/17 07:09 Eos % (Auto) 14.0 % (0.0-4.3) H 02/19/17 07:09 Baso % (Auto) 0.6 % (0.0-1.8) 02/19/17 07:09 Lymph # 0.9 K/mm3 (1.2-5.4) L 02/19/17 07:09 [place] # 0.5 K/mm3 (0.0-0.8) 02/19/17 07:09 Eos # 0.8 K/mm3 (0.0-0.4) H 02/19/17 07:09 Baso # 0.0 K/mm3 (0.0-0.1) 02/19/17 07:09 Seg Neutrophils % 62.2 % (40.0-70.0) 02/19/17 07:09 Seg Neutrophils # 3.7 K/mm3 (1.8-7.7) 02/19/17 07:09 Sodium 138 mmol/L (137-145) 02/25/17 04:44 Potassium 3.5 mmol/L (3.6-5.0) L 02/25/17 04:44 Chloride 98.0 mmol/L (98-107) 02/25/17 04:44 Carbon Dioxide 26 mmol/L (22-30) 02/25/17 04:44 Anion Gap 18 mmol/L 02/25/17 04:44 BUN 31 mg/dL (9-20) H 02/25/17 04:44 Creatinine 7.4 mg/dL (0.8-1.5) H 02/25/17 04:44 Estimated GFR 8 ml/min 02/25/17 04:44 BUN/Creatinine Ratio 4.18 % 02/25/17 04:44 Glucose 103 mg/dL (75-100) H 02/25/17 04:44 POC Glucose 109 (70-105) H 02/25/17 06:19 Calcium 6.9 mg/dL (8.4-10.2) L 02/25/17 04:44 Iron 91 ug/dL (49-181) 02/19/17 16:06 TIBC 195 mcg/dL (250-450) L 02/19/17 16:06 % Saturation 46.67 % 02/19/17 16:06 Transferrin 168 mg/dl (180-329) L 02/19/17 16:06 Ferritin 472.7 ng/mL (13.0-400.0) H 02/19/17 16:06 Serum Total Protein 5.1 g/dL (6.1-8.1) L 02/19/17 16:06 Albumin 2.8 g/dL (3.8-4.8) L 02/19/17 16:06 Slaim-4-Xdekzfkyu 0.3 g/dL (0.2-0.3) 02/19/17 16:06 Cubzh-9-Vryqslwvu 0.9 g/dL (0.5-0.9) 02/19/17 16:06 Beta Globulins 0.2 g/dL (0.2-0.5) 02/19/17 16:06 Gamma Globulins 0.6 g/dL (0.8-1.7) L 02/19/17 16:06 Abnorm Protein Band 1 see below 02/19/17 16:06 PEP Interpretation see below H 02/19/17 16:06 Triglycerides 156 mg/dL (2-149) H 02/19/17 07:09 Cholesterol 207 mg/dL (50-199) H 02/19/17 07:09 LDL Cholesterol Direct 147 mg/dL (50-130) H 02/19/17 07:09 HDL Cholesterol 29 mg/dL (40-59) L 02/19/17 07:09 Cholesterol/HDL Ratio 7.13 % 02/19/17 07:09 Urine Color Straw (Yellow) 02/20/17 00:20 Urine Turbidity Clear (Clear) 02/20/17 00:20 Urine pH 6.0 (5.0-7.0) 02/20/17 00:20 Ur Specific [place] 1.011 (1.003-1.030) 02/20/17 00:20 Urine Protein >500 mg/dL (Negative) 02/20/17 00:20 Urine Glucose (UA) >=500 mg/dL (Negative) 02/20/17 00:20 Urine Ketones Neg mg/dL (Negative) 02/20/17 00:20 Urine Blood Neg (Negative) 02/20/17 00:20 Urine Nitrite Neg (Negative) 02/20/17 00:20 Urine Bilirubin Neg (Negative) 02/20/17 00:20 Urine Urobilinogen < 2.0 mg/dL (<2.0) 02/20/17 00:20 Ur Leukocyte Esterase Neg (Negative) 02/20/17 00:20 Urine WBC (Auto) 1.0 /HPF (0.0-6.0) 02/20/17 00:20 Urine RBC (Auto) < 1.0 /HPF (0.0-6.0) 02/20/17 00:20 Urine Eosinophils >5% (None Seen) 02/20/17 00:20 Urine Total Volume 950 02/21/17 02:00 Urine Creatinine 82.2 mg/dL (0.1-20.0) H 02/21/17 02:00 Ur Creatinine 24 Hour 0.8 (0.8-2.8) 02/21/17 02:00 Urine Sodium 73 mEq/L 02/21/17 02:00 Ur Sodium 24 Hour 69.4 (40-220) 02/21/17 02:00 Proteinase 3 (PR3) Ab <1.0 AI (<1.0) 02/19/17 16:06 Myeloperoxidase Ab <1.0 AI (<1.0) 02/19/17 16:06 Complement C3 98 mg/dL (90-180) 02/19/17 16:45 Complement C4 25 mg/dL (16-47) 02/19/17 16:45 Hepatitis A IgM Ab Non-reactive (NonReactive) 02/19/17 16:06 Hep Bs Antigen Non-reactive (Negative) 02/19/17 16:06 Hep B Core IgM Ab Non-reactive (NonReactive) 02/19/17 16:06 Hepatitis C Antibody Non-reactive (NonReactive) 02/19/17 16:06
[2017-02-25] MEDS: HEPARIN IV PRN (17:00)
[2017-02-26] MEDS: NORMODYNE PO SCH ×2 (01:08→09:34)
[2017-02-26] MEDS: APRESOLINE PO SCH ×4 (01:09→22:18)
[2017-02-26] MEDS: ZOCOR PO SCH ×2 (01:10→22:18)
[2017-02-26 06:46] LABS: BUN/Creatinine Ratio 3.89; Calcium 7.6 mg/dL (8.4-10.2); Chloride 101.9 mmol/L (98-107); Potassium 3.6 mmol/L (3.6-5.0)
[2017-02-26] MEDS: NORVASC PO SCH (09:33)
[2017-02-26] MEDS: ROCALTROL PO SCH (09:34)
[2017-02-26] MEDS: LOVENOX SUB-Q SCH (09:34)
--- NOTE | 2017-02-26 11:43 | Progress Note ---
Assessment and Plan Assessment and plan: -- ESRD : Hemodialysis per schedule, Outpatient hemodialysis chair and be set up by case management --Malignant Hypertension,: Well-controlled, continue labetalol ,hydralazine and Norvasc, when necessary hydralazine --Diabetes mellitus type 2. Accu-Cheks and sliding scale insulin. --Hypocalcemia, secondary to hyperparathyroidism, improving --Anemia of chronic kidney disease; Procrit during dialysis, closely monitored --Possible ACUTE CVA ; neuro workup CT head,MRI,MRA, ,carotid Doppler echocardiogram negative --Dvt prophylaxis; Lovenox renal dose Patient is medically stable for discharge Case management for outpatient HD scheduling History Interval history: Patient seen and examined Patient feels better no new complaints Vital signs reviewed Hospitalist Physical - Constitutional Vitals: Temp Pulse Resp BP Pulse Ox 98.5 F 83 18 145/73 98 02/26/17 07:52 02/26/17 09:34 02/26/17 07:52 02/26/17 09:34 02/26/17 07:52 General appearance: Present: no acute distress, well-nourished - EENT Eyes: Present: PERRL, EOM intact - Neck Neck: Present: supple, normal ROM - Respiratory Respiratory effort: normal Respiratory: bilateral: diminished, negative: rales, rhonchi, wheezing - Cardiovascular Rhythm: regular Heart Sounds: Present: S1 & S2 - Extremities Extremities: no ischemia - Abdominal General gastrointestinal: soft, non-tender, non-distended, normal bowel sounds - Integumentary Integumentary: Present: clear, warm - Psychiatric Psychiatric: appropriate mood/affect, cooperative - Neurologic Neurologic: CNII-XII intact, moves all extremities Results - Labs CBC & Chem 7: 02/19/17 07:09 02/26/17 05:44 Labs: Laboratory Last Values WBC 5.9 K/mm3 (4.5-11.0) 02/19/17 07:09 RBC 2.98 M/mm3 (3.65-5.03) L 02/19/17 07:09 Hgb 9.0 gm/dl (11.8-15.2) L 02/19/17 07:09 Hct 26.6 % (35.5-45.6) L 02/19/17 07:09 MCV 89 fl (84-94) 02/19/17 07:09 MCH 30 pg (28-32) 02/19/17 07:09 MCHC 34 % (32-34) 02/19/17 07:09 RDW 13.0 % (13.2-15.2) L 02/19/17 07:09 Plt Count 207 K/mm3 (140-440) 02/19/17 07:09 Lymph % (Auto) 14.4 % (13.4-35.0) 02/19/17 07:09 [place] % (Auto) 8.8 % (0.0-7.3) H 02/19/17 07:09 Eos % (Auto) 14.0 % (0.0-4.3) H 02/19/17 07:09 Baso % (Auto) 0.6 % (0.0-1.8) 02/19/17 07:09 Lymph # 0.9 K/mm3 (1.2-5.4) L 02/19/17 07:09 [place] # 0.5 K/mm3 (0.0-0.8) 02/19/17 07:09 Eos # 0.8 K/mm3 (0.0-0.4) H 02/19/17 07:09 Baso # 0.0 K/mm3 (0.0-0.1) 02/19/17 07:09 Seg Neutrophils % 62.2 % (40.0-70.0) 02/19/17 07:09 Seg Neutrophils # 3.7 K/mm3 (1.8-7.7) 02/19/17 07:09 Sodium 141 mmol/L (137-145) 02/26/17 05:44 Potassium 3.6 mmol/L (3.6-5.0) 02/26/17 05:44 Chloride 101.9 mmol/L (98-107) 02/26/17 05:44 Carbon Dioxide 29 mmol/L (22-30) 02/26/17 05:44 Anion Gap 14 mmol/L 02/26/17 05:44 BUN 23 mg/dL (9-20) H 02/26/17 05:44 Creatinine 5.9 mg/dL (0.8-1.5) H 02/26/17 05:44 Estimated GFR 10 ml/min 02/26/17 05:44 BUN/Creatinine Ratio 3.89 % 02/26/17 05:44 Glucose 104 mg/dL (75-100) H 02/26/17 05:44 POC Glucose 168 (70-105) H 02/26/17 11:31 Calcium 7.6 mg/dL (8.4-10.2) L 02/26/17 05:44 Iron 91 ug/dL (49-181) 02/19/17 16:06 TIBC 195 mcg/dL (250-450) L 02/19/17 16:06 % Saturation 46.67 % 02/19/17 16:06 Transferrin 168 mg/dl (180-329) L 02/19/17 16:06 Ferritin 472.7 ng/mL (13.0-400.0) H 02/19/17 16:06 Serum Total Protein 5.1 g/dL (6.1-8.1) L 02/19/17 16:06 Albumin 2.8 g/dL (3.8-4.8) L 02/19/17 16:06 Jatpn-3-Fvdxlwney 0.3 g/dL (0.2-0.3) 02/19/17 16:06 Lwcnm-4-Fgcfooolj 0.9 g/dL (0.5-0.9) 02/19/17 16:06 Beta Globulins 0.2 g/dL (0.2-0.5) 02/19/17 16:06 Gamma Globulins 0.6 g/dL (0.8-1.7) L 02/19/17 16:06 Abnorm Protein Band 1 see below 02/19/17 16:06 PEP Interpretation see below H 02/19/17 16:06 Triglycerides 156 mg/dL (2-149) H 02/19/17 07:09 Cholesterol 207 mg/dL (50-199) H 02/19/17 07:09 LDL Cholesterol Direct 147 mg/dL (50-130) H 02/19/17 07:09 HDL Cholesterol 29 mg/dL (40-59) L 02/19/17 07:09 Cholesterol/HDL Ratio 7.13 % 02/19/17 07:09 Urine Color Straw (Yellow) 02/20/17 00:20 Urine Turbidity Clear (Clear) 02/20/17 00:20 Urine pH 6.0 (5.0-7.0) 02/20/17 00:20 Ur Specific [place] 1.011 (1.003-1.030) 02/20/17 00:20 Urine Protein >500 mg/dL (Negative) 02/20/17 00:20 Urine Glucose (UA) >=500 mg/dL (Negative) 02/20/17 00:20 Urine Ketones Neg mg/dL (Negative) 02/20/17 00:20 Urine Blood Neg (Negative) 02/20/17 00:20 Urine Nitrite Neg (Negative) 02/20/17 00:20 Urine Bilirubin Neg (Negative) 02/20/17 00:20 Urine Urobilinogen < 2.0 mg/dL (<2.0) 02/20/17 00:20 Ur Leukocyte Esterase Neg (Negative) 02/20/17 00:20 Urine WBC (Auto) 1.0 /HPF (0.0-6.0) 02/20/17 00:20 Urine RBC (Auto) < 1.0 /HPF (0.0-6.0) 02/20/17 00:20 Urine Eosinophils >5% (None Seen) 02/20/17 00:20 Urine Total Volume 950 02/21/17 02:00 Urine Creatinine 82.2 mg/dL (0.1-20.0) H 02/21/17 02:00 Ur Creatinine 24 Hour 0.8 (0.8-2.8) 02/21/17 02:00 Urine Sodium 73 mEq/L 02/21/17 02:00 Ur Sodium 24 Hour 69.4 (40-220) 02/21/17 02:00 Proteinase 3 (PR3) Ab <1.0 AI (<1.0) 02/19/17 16:06 Myeloperoxidase Ab <1.0 AI (<1.0) 02/19/17 16:06 Complement C3 98 mg/dL (90-180) 02/19/17 16:45 Complement C4 25 mg/dL (16-47) 02/19/17 16:45 Hepatitis A IgM Ab Non-reactive (NonReactive) 02/19/17 16:06 Hep Bs Antigen Non-reactive (Negative) 02/19/17 16:06 Hep B Core IgM Ab Non-reactive (NonReactive) 02/19/17 16:06 Hepatitis C Antibody Non-reactive (NonReactive) 02/19/17 16:06
--- NOTE | 2017-02-26 12:35 | Progress Note ---
Assessment and Plan Impression: * ESRD --Renal ultrasound reviewed - patient with echogenic changes concerning for chronic disease * Accelerated hypertension * Type II diabetes mellitus * Anemia * Hypocalcemia secondary to secondary hyperPTH Plan: * HD TTS schedule. s/p permcath placement * Continue Calcitriol and adjust Ca bath with dialysis * Epogen with dialysis * Serologic work up pending * Continue BP medications - BP control improved * Avoid nephrotoxins * Dose medications for renal function * CM consulted to assist with outpatient hemodialysis --Angel Robles Subjective Date of service: 02/26/17 Principal diagnosis: esrd Interval history: resting well in bed today Objective - Exam Narrative Exam: General appearance: well-developed, well-nourished EENT: ATNC Respiratory: Present: Clear to Ascultation Cardiology: regular, S1S2 Gastrointestinal: normal, no tenderness, no distended Integumentary: no rash Musculoskeletal: other (no edema) Psychiatric: cooperative - Vital Signs Vital signs: Vital Signs - 12hr 02/26/17 02/26/17 02/26/17 01:08 01:09 07:08 Temperature Pulse Rate 84 84 80 Respiratory Rate Blood Pressure 138/76 138/76 136/70 O2 Sat by Pulse Oximetry 02/26/17 02/26/17 02/26/17 07:52 09:33 09:34 Temperature 98.5 F Pulse Rate 83 83 83 Respiratory 18 Rate Blood Pressure 145/73 145/73 145/73 O2 Sat by Pulse 98 Oximetry - Lab 02/19/17 07:09 02/26/17 05:44 Most recent lab results Calcium 7.6 mg/dL (8.4-10.2) L 02/26/17 05:44 Urine Creatinine 82.2 mg/dL (0.1-20.0) H 02/21/17 02:00 Urine Sodium 73 mEq/L 02/21/17 02:00
[2017-02-26] MEDS ORDERED: NOVOLOG SUB-Q SCH (16:30)
[2017-02-27] MEDS: NORMODYNE PO SCH ×3 (01:05→23:18)
[2017-02-27] MEDS: APRESOLINE PO SCH ×3 (06:11→23:18)
[2017-02-27 06:33] LABS: BUN/Creatinine Ratio 4.3; Calcium 7.2 mg/dL (8.4-10.2); Chloride 103.1 mmol/L (98-107); Potassium 3.7 mmol/L (3.6-5.0)
--- NOTE | 2017-02-27 10:06 | Progress Note ---
Assessment and Plan Impression: * ESRD --Renal ultrasound reviewed - patient with echogenic changes concerning for chronic disease * Accelerated hypertension * Type II diabetes mellitus * Anemia * Hypocalcemia secondary to secondary hyperPTH Plan: * HD TTS schedule. s/p permcath placement * Continue Calcitriol and adjust Ca bath with dialysis * Epogen with dialysis * Serologic work up pending * Continue BP medications - BP control improved * Avoid nephrotoxins * Dose medications for renal function * CM consulted to assist with outpatient hemodialysis --Angel Robles Subjective Date of service: 02/27/17 Principal diagnosis: esrd Interval history: resting well in bed today Objective - Exam Narrative Exam: General appearance: well-developed, well-nourished EENT: ATNC Respiratory: Present: Clear to Ascultation Cardiology: regular, S1S2 Gastrointestinal: normal, no tenderness, no distended Integumentary: no rash Musculoskeletal: other (no edema) Psychiatric: cooperative - Vital Signs Vital signs: Vital Signs - 12hr 02/27/17 02/27/17 02/27/17 01:03 06:09 07:46 Temperature 98.9 F 98.8 F Pulse Rate 86 83 85 Respiratory 18 18 16 Rate Blood Pressure 134/67 120/64 123/69 O2 Sat by Pulse 95 95 95 Oximetry - Lab 02/19/17 07:09 02/27/17 05:48 Most recent lab results Calcium 7.2 mg/dL (8.4-10.2) L 02/27/17 05:48 Urine Creatinine 82.2 mg/dL (0.1-20.0) H 02/21/17 02:00 Urine Sodium 73 mEq/L 02/21/17 02:00
[2017-02-27] MEDS: ROCALTROL PO SCH (10:51)
[2017-02-27] MEDS: LOVENOX SUB-Q SCH (10:52)
[2017-02-27] MEDS: NORVASC PO SCH (10:52)
[2017-02-27] MEDS ORDERED: BENADRYL PO PRN (12:08)
--- NOTE | 2017-02-27 16:18 | Progress Note ---
Assessment and Plan Assessment and plan: -- ESRD : Receiving hemodialysis 3 times a week,[TTS], Outpatient hemodialysis chair to be set up by case management --Malignant Hypertension,: Well-controlled, continue labetalol ,hydralazine and Norvasc, when necessary hydralazine --Diabetes mellitus type 2. That sugars are borderline, not requiring much of insulin coverage, check hemoglobin A1c Hypoglycemics, Accu-Cheks and sliding scale insulin. --Hypocalcemia, secondary to hyperparathyroidism, improving --Anemia of chronic kidney disease; Procrit during dialysis, closely monitored --CVA like symptoms at the time of admission; neuro workup CT head,MRI,MRA, , carotid Doppler echocardiogram negative --Dvt prophylaxis; Lovenox renal dose Patient is medically stable for discharge Awaiting outpatient HD scheduling Plan of care discussed with the patient and his at bedside History Interval history: Patient feels better no new complaints Alert awake oriented 3 not in acute distress Awaiting outpatient HD scheduling Hospitalist Physical - Constitutional Vitals: Temp Pulse Resp BP Pulse Ox 98.8 F 80 16 120/78 95 02/27/17 07:46 02/27/17 10:52 02/27/17 07:46 02/27/17 13:15 02/27/17 07:46 General appearance: Present: no acute distress, well-nourished - EENT Eyes: Present: PERRL, EOM intact - Neck Neck: Present: supple, normal ROM - Respiratory Respiratory effort: normal Respiratory: bilateral: diminished, negative: rales, rhonchi, wheezing - Cardiovascular Rhythm: regular Heart Sounds: Present: S1 & S2 - Extremities Extremities: no ischemia, No edema Peripheral Pulses: within normal limits - Abdominal General gastrointestinal: soft, non-tender, non-distended, normal bowel sounds - Integumentary Integumentary: Present: clear, warm - Psychiatric Psychiatric: appropriate mood/affect, cooperative - Neurologic Neurologic: CNII-XII intact, moves all extremities Results - Labs CBC & Chem 7: 02/19/17 07:09 02/27/17 05:48 Labs: Laboratory Last Values WBC 5.9 K/mm3 (4.5-11.0) 02/19/17 07:09 RBC 2.98 M/mm3 (3.65-5.03) L 02/19/17 07:09 Hgb 9.0 gm/dl (11.8-15.2) L 02/19/17 07:09 Hct 26.6 % (35.5-45.6) L 02/19/17 07:09 MCV 89 fl (84-94) 02/19/17 07:09 MCH 30 pg (28-32) 02/19/17 07:09 MCHC 34 % (32-34) 02/19/17 07:09 RDW 13.0 % (13.2-15.2) L 02/19/17 07:09 Plt Count 207 K/mm3 (140-440) 02/19/17 07:09 Lymph % (Auto) 14.4 % (13.4-35.0) 02/19/17 07:09 [place] % (Auto) 8.8 % (0.0-7.3) H 02/19/17 07:09 Eos % (Auto) 14.0 % (0.0-4.3) H 02/19/17 07:09 Baso % (Auto) 0.6 % (0.0-1.8) 02/19/17 07:09 Lymph # 0.9 K/mm3 (1.2-5.4) L 02/19/17 07:09 [place] # 0.5 K/mm3 (0.0-0.8) 02/19/17 07:09 Eos # 0.8 K/mm3 (0.0-0.4) H 02/19/17 07:09 Baso # 0.0 K/mm3 (0.0-0.1) 02/19/17 07:09 Seg Neutrophils % 62.2 % (40.0-70.0) 02/19/17 07:09 Seg Neutrophils # 3.7 K/mm3 (1.8-7.7) 02/19/17 07:09 Sodium 142 mmol/L (137-145) 02/27/17 05:48 Potassium 3.7 mmol/L (3.6-5.0) 02/27/17 05:48 Chloride 103.1 mmol/L (98-107) 02/27/17 05:48 Carbon Dioxide 24 mmol/L (22-30) 02/27/17 05:48 Anion Gap 19 mmol/L 02/27/17 05:48 BUN 34 mg/dL (9-20) H 02/27/17 05:48 Creatinine 7.9 mg/dL (0.8-1.5) H 02/27/17 05:48 Estimated GFR 7 ml/min 02/27/17 05:48 BUN/Creatinine Ratio 4.30 % 02/27/17 05:48 Glucose 98 mg/dL (75-100) 02/27/17 05:48 POC Glucose 169 (70-105) H 02/27/17 16:14 Calcium 7.2 mg/dL (8.4-10.2) L 02/27/17 05:48 Iron 91 ug/dL (49-181) 02/19/17 16:06 TIBC 195 mcg/dL (250-450) L 02/19/17 16:06 % Saturation 46.67 % 02/19/17 16:06 Transferrin 168 mg/dl (180-329) L 02/19/17 16:06 Ferritin 472.7 ng/mL (13.0-400.0) H 02/19/17 16:06 Serum Total Protein 5.1 g/dL (6.1-8.1) L 02/19/17 16:06 Albumin 2.8 g/dL (3.8-4.8) L 02/19/17 16:06 [place]-6-Oarixupzx 0.3 g/dL (0.2-0.3) 02/19/17 16:06 Tzthb-0-Ztccpceuw 0.9 g/dL (0.5-0.9) 02/19/17 16:06 Beta Globulins 0.2 g/dL (0.2-0.5) 02/19/17 16:06 Gamma Globulins 0.6 g/dL (0.8-1.7) L 02/19/17 16:06 Abnorm Protein Band 1 see below 02/19/17 16:06 PEP Interpretation see below H 02/19/17 16:06 Triglycerides 156 mg/dL (2-149) H 02/19/17 07:09 Cholesterol 207 mg/dL (50-199) H 02/19/17 07:09 LDL Cholesterol Direct 147 mg/dL (50-130) H 02/19/17 07:09 HDL Cholesterol 29 mg/dL (40-59) L 02/19/17 07:09 Cholesterol/HDL Ratio 7.13 % 02/19/17 07:09 Urine Color Straw (Yellow) 02/20/17 00:20 Urine Turbidity Clear (Clear) 02/20/17 00:20 Urine pH 6.0 (5.0-7.0) 02/20/17 00:20 Ur Specific [place] 1.011 (1.003-1.030) 02/20/17 00:20 Urine Protein >500 mg/dL (Negative) 02/20/17 00:20 Urine Glucose (UA) >=500 mg/dL (Negative) 02/20/17 00:20 Urine Ketones Neg mg/dL (Negative) 02/20/17 00:20 Urine Blood Neg (Negative) 02/20/17 00:20 Urine Nitrite Neg (Negative) 02/20/17 00:20 Urine Bilirubin Neg (Negative) 02/20/17 00:20 Urine Urobilinogen < 2.0 mg/dL (<2.0) 02/20/17 00:20 Ur Leukocyte Esterase Neg (Negative) 02/20/17 00:20 Urine WBC (Auto) 1.0 /HPF (0.0-6.0) 02/20/17 00:20 Urine RBC (Auto) < 1.0 /HPF (0.0-6.0) 02/20/17 00:20 Urine Eosinophils >5% (None Seen) 02/20/17 00:20 Urine Total Volume 950 02/21/17 02:00 Urine Creatinine 82.2 mg/dL (0.1-20.0) H 02/21/17 02:00 Ur Creatinine 24 Hour 0.8 (0.8-2.8) 02/21/17 02:00 Urine Sodium 73 mEq/L 02/21/17 02:00 Ur Sodium 24 Hour 69.4 (40-220) 02/21/17 02:00 Proteinase 3 (PR3) Ab <1.0 AI (<1.0) 02/19/17 16:06 Myeloperoxidase Ab <1.0 AI (<1.0) 02/19/17 16:06 Complement C3 98 mg/dL (90-180) 02/19/17 16:45 Complement C4 25 mg/dL (16-47) 02/19/17 16:45 Hepatitis A IgM Ab Non-reactive (NonReactive) 02/19/17 16:06 Hep Bs Antigen Non-reactive (Negative) 02/19/17 16:06 Hep B Core IgM Ab Non-reactive (NonReactive) 02/19/17 16:06 Hepatitis C Antibody Non-reactive (NonReactive) 02/19/17 16:06
[2017-02-27] MEDS: ZOCOR PO SCH (23:18)
[2017-02-28] MEDS: APRESOLINE PO SCH (06:22)
[2017-02-28 06:45] LABS: Calcium 7.3 mg/dL (8.4-10.2); Chloride 99.2 mmol/L (98-107); Potassium 3.9 mmol/L (3.6-5.0)
--- NOTE | 2017-02-28 09:39 | Progress Note ---
Hospitalist Physical - Constitutional Vitals: Temp Pulse Resp BP Pulse Ox 98.4 F 80 18 142/75 98 02/28/17 08:14 02/28/17 08:14 02/28/17 08:14 02/28/17 08:14 02/28/17 08:14 General appearance: Present: no acute distress, well-nourished Results - Labs CBC & Chem 7: 02/19/17 07:09 02/28/17 05:09 Labs: Laboratory Last Values WBC 5.9 K/mm3 (4.5-11.0) 02/19/17 07:09 RBC 2.98 M/mm3 (3.65-5.03) L 02/19/17 07:09 Hgb 9.0 gm/dl (11.8-15.2) L 02/19/17 07:09 Hct 26.6 % (35.5-45.6) L 02/19/17 07:09 MCV 89 fl (84-94) 02/19/17 07:09 MCH 30 pg (28-32) 02/19/17 07:09 MCHC 34 % (32-34) 02/19/17 07:09 RDW 13.0 % (13.2-15.2) L 02/19/17 07:09 Plt Count 207 K/mm3 (140-440) 02/19/17 07:09 Lymph % (Auto) 14.4 % (13.4-35.0) 02/19/17 07:09 [place] % (Auto) 8.8 % (0.0-7.3) H 02/19/17 07:09 Eos % (Auto) 14.0 % (0.0-4.3) H 02/19/17 07:09 Baso % (Auto) 0.6 % (0.0-1.8) 02/19/17 07:09 Lymph # 0.9 K/mm3 (1.2-5.4) L 02/19/17 07:09 [place] # 0.5 K/mm3 (0.0-0.8) 02/19/17 07:09 Eos # 0.8 K/mm3 (0.0-0.4) H 02/19/17 07:09 Baso # 0.0 K/mm3 (0.0-0.1) 02/19/17 07:09 Seg Neutrophils % 62.2 % (40.0-70.0) 02/19/17 07:09 Seg Neutrophils # 3.7 K/mm3 (1.8-7.7) 02/19/17 07:09 Sodium 139 mmol/L (137-145) 02/28/17 05:09 Potassium 3.9 mmol/L (3.6-5.0) 02/28/17 05:09 Chloride 99.2 mmol/L (98-107) 02/28/17 05:09 Carbon Dioxide 21 mmol/L (22-30) L 02/28/17 05:09 Anion Gap 23 mmol/L 02/28/17 05:09 BUN 46 mg/dL (9-20) H 02/28/17 05:09 Creatinine 9.6 mg/dL (0.8-1.5) H 02/28/17 05:09 Estimated GFR 6 ml/min 02/28/17 05:09 BUN/Creatinine Ratio 5 % 02/28/17 05:09 Glucose 101 mg/dL (75-100) H 02/28/17 05:09 POC Glucose 100 (70-105) 02/28/17 05:57 Hemoglobin A1c 4.7 % (4-6) 02/28/17 05:09 Calcium 7.3 mg/dL (8.4-10.2) L 02/28/17 05:09 Iron 91 ug/dL (49-181) 02/19/17 16:06 TIBC 195 mcg/dL (250-450) L 02/19/17 16:06 % Saturation 46.67 % 02/19/17 16:06 Transferrin 168 mg/dl (180-329) L 02/19/17 16:06 Ferritin 472.7 ng/mL (13.0-400.0) H 02/19/17 16:06 Serum Total Protein 5.1 g/dL (6.1-8.1) L 02/19/17 16:06 Albumin 2.8 g/dL (3.8-4.8) L 02/19/17 16:06 Yqklf-0-Hglaiilln 0.3 g/dL (0.2-0.3) 02/19/17 16:06 Apwxz-1-Utvcnetko 0.9 g/dL (0.5-0.9) 02/19/17 16:06 Beta Globulins 0.2 g/dL (0.2-0.5) 02/19/17 16:06 Gamma Globulins 0.6 g/dL (0.8-1.7) L 02/19/17 16:06 Abnorm Protein Band 1 see below 02/19/17 16:06 PEP Interpretation see below H 02/19/17 16:06 Triglycerides 156 mg/dL (2-149) H 02/19/17 07:09 Cholesterol 207 mg/dL (50-199) H 02/19/17 07:09 LDL Cholesterol Direct 147 mg/dL (50-130) H 02/19/17 07:09 HDL Cholesterol 29 mg/dL (40-59) L 02/19/17 07:09 Cholesterol/HDL Ratio 7.13 % 02/19/17 07:09 Urine Color Straw (Yellow) 02/20/17 00:20 Urine Turbidity Clear (Clear) 02/20/17 00:20 Urine pH 6.0 (5.0-7.0) 02/20/17 00:20 Ur Specific [place] 1.011 (1.003-1.030) 02/20/17 00:20 Urine Protein >500 mg/dL (Negative) 02/20/17 00:20 Urine Glucose (UA) >=500 mg/dL (Negative) 02/20/17 00:20 Urine Ketones Neg mg/dL (Negative) 02/20/17 00:20 Urine Blood Neg (Negative) 02/20/17 00:20 Urine Nitrite Neg (Negative) 02/20/17 00:20 Urine Bilirubin Neg (Negative) 02/20/17 00:20 Urine Urobilinogen < 2.0 mg/dL (<2.0) 02/20/17 00:20 Ur Leukocyte Esterase Neg (Negative) 02/20/17 00:20 Urine WBC (Auto) 1.0 /HPF (0.0-6.0) 02/20/17 00:20 Urine RBC (Auto) < 1.0 /HPF (0.0-6.0) 02/20/17 00:20 Urine Eosinophils >5% (None Seen) 02/20/17 00:20 Urine Total Volume 950 02/21/17 02:00 Urine Creatinine 82.2 mg/dL (0.1-20.0) H 02/21/17 02:00 Ur Creatinine 24 Hour 0.8 (0.8-2.8) 02/21/17 02:00 Urine Sodium 73 mEq/L 02/21/17 02:00 Ur Sodium 24 Hour 69.4 (40-220) 02/21/17 02:00 Proteinase 3 (PR3) Ab <1.0 AI (<1.0) 02/19/17 16:06 Myeloperoxidase Ab <1.0 AI (<1.0) 02/19/17 16:06 Complement C3 98 mg/dL (90-180) 02/19/17 16:45 Complement C4 25 mg/dL (16-47) 02/19/17 16:45 Hepatitis A IgM Ab Non-reactive (NonReactive) 02/19/17 16:06 Hep Bs Antigen Non-reactive (Negative) 02/19/17 16:06 Hep B Core IgM Ab Non-reactive (NonReactive) 02/19/17 16:06 Hepatitis C Antibody Non-reactive (NonReactive) 02/19/17 16:06
[2017-02-28] MEDS: NORMODYNE PO SCH ×2 (10:01→16:08)
[2017-02-28] MEDS: LOVENOX SUB-Q SCH (10:01)
[2017-02-28] MEDS: ROCALTROL PO SCH ×2 (10:02→16:07)
[2017-02-28] MEDS: NORVASC PO SCH ×2 (10:02→16:07)
--- NOTE | 2017-02-28 10:02 | Progress Note ---
Assessment and Plan Impression: * ESRD --Renal ultrasound reviewed - patient with echogenic changes concerning for chronic disease * Accelerated hypertension * Type II diabetes mellitus * Anemia * Hypocalcemia secondary to secondary hyperPTH Plan: * HD TTS schedule. s/p permcath placement * Continue Calcitriol and adjust Ca bath with dialysis * Epogen with dialysis * Serologic work up pending * Continue BP medications - BP control improved * Avoid nephrotoxins * Dose medications for renal function * CM consulted to assist with outpatient hemodialysis --Angel Robles MWF at 11:15 * can dc home today Subjective Date of service: 02/28/17 Principal diagnosis: esrd Interval history: resting well in bed today Objective - Exam Narrative Exam: General appearance: well-developed, well-nourished EENT: ATNC Respiratory: Present: Clear to Ascultation Cardiology: regular, S1S2 Gastrointestinal: normal, no tenderness, no distended Integumentary: no rash Musculoskeletal: other (no edema) Psychiatric: cooperative - Vital Signs Vital signs: Vital Signs - 12hr 02/27/17 02/28/17 22:50 08:14 Temperature 98.5 F 98.4 F Pulse Rate 79 80 Respiratory 18 18 Rate Blood Pressure 126/71 142/75 O2 Sat by Pulse 95 98 Oximetry - Lab 02/19/17 07:09 02/28/17 05:09 Most recent lab results Calcium 7.3 mg/dL (8.4-10.2) L 02/28/17 05:09 Urine Creatinine 82.2 mg/dL (0.1-20.0) H 02/21/17 02:00 Urine Sodium 73 mEq/L 02/21/17 02:00
--- NOTE | 2017-02-28 10:04 | Discharge Summary ---
Providers - Providers Date of Admission: 02/18/17 14:11 Date of discharge: 02/28/17 Attending physician: AARON BOURGEOIS 02/18/17 14:16 Consult to Dietitian/Nutrition [CONS] Routine Physician Instructions: Reason For Exam: Reason for Consult: Nutrition Recommendations Reason for Consult: Diet education Occupational Therapy Evaluate and Treat [CONS] Routine Comment: Reason For Exam: Neuro deficits Physical Therapy Evaluation and Treat [CONS] Routine Comment: Reason For Exam: Neuro deficits 02/19/17 10:03 Consult to Physician [CONS] Routine Consulting Provider: ANYA ALEMAN Reason For Exam: renal failure Place consult to:: dr. aleman Notified:: answering service Phone number called:: Was contact made?: Yes If yes, spoke with:: nacho Time called:: 11:14 02/21/17 08:15 Consult to Physician [CONS] Routine Consulting Provider: ABRAHAN ARIZMENDI Reason For Exam: Permcath insertion Place consult to:: Dr. AMBRIZ Notified:: DR. 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 2.Routine hemodialysis as scheduled Follow up with: PRIMARY CARE,MD [Primary Care Provider] - 3-5 Days Prescriptions: amLODIPine [Norvasc] 10 mg PO QDAY #30 tablet Calcitriol [Rocaltrol] 0.5 mcg PO QDAY #30 capsule hydrALAZINE [Apresoline TAB] 25 mg PO Q8HR #90 tablet Labetalol [Normodyne TAB] 200 mg PO BID #60 tablet Simvastatin [Zocor TAB] 20 mg PO QHS #30 tablet
[2017-02-28] MEDS ORDERED: NACL 0.9 (PRIMING MACHINE ONLY DIALYSIS) MC ONE (11:44)
[2017-02-28] MEDS ORDERED: HEPARIN ONE (11:45)
[2017-02-28] MEDS: HEPARIN IV PRN (14:15)
[2017-02-28 16:08] VITALS: BP 150/80
== END 2017-02-28 17:00 | disposition home or self-care (01) | DRG 673 ==
LOC: ED 22:59 → 3A 02-18 14:11
PROVIDERS: ADMIT Hospitalist; ATTEND Internal Medicine
PROC: 3E0234Z Introduction of Serum, Toxoid and Vaccine into Muscle, Percutaneous Approach (ICD-10-PCS; principal; 2017-02-19)
PROC: 02H633Z Insertion of Infusion Device into Right Atrium, Percutaneous Approach (ICD-10-PCS; 2017-02-21)
PROC: 5A1D70Z Performance of Urinary Filtration, Intermittent, Less than 6 Hours Per Day (ICD-10-PCS; 2017-02-22)
PROC: 0JH63XZ Insertion of Tunneled Vascular Access Device into Chest Subcutaneous Tissue and Fascia, Percutaneous Approach (ICD-10-PCS; 2017-02-24)
PROC: 02H633Z Insertion of Infusion Device into Right Atrium, Percutaneous Approach (ICD-10-PCS; 2017-02-24)
PROC: 02PY33Z Removal of Infusion Device from Great Vessel, Percutaneous Approach (ICD-10-PCS; 2017-02-24)
DX: I12.0 Hypertensive chronic kidney disease with stage 5 chronic kidney disease or end stage renal disease (principal); N18.6 End stage renal disease; N17.9 Acute kidney failure, unspecified; I16.0 Hypertensive urgency; R51 Headache; E21.1 Secondary hyperparathyroidism, not elsewhere classified; E11.22 Type 2 diabetes mellitus with diabetic chronic kidney disease; D63.1 Anemia in chronic kidney disease; Z23 Encounter for immunization
CPT/HCPCS: 36415; 36556; 36558; 70450; 70544; 70551; 71020; 76770; 76937; 77001; 80048; 80061; 80074; 81001; 82570; 82728; 82962; 83036; 83550; 84165; 84300; 85025; 86021; 86160; 89050; 90686; 90732; 93306; 93880; 96374; 96375; C1750; C1752; C1769; J0360; J0690; J0885; J1200; J1644; J1650; J1815; J1885; J2250; J2765; J3010; J7030; J7050

== ENCOUNTER 2017-06-06 05:47 | Day surgery (SDC) | payer MEDICARE, OTHER ==
[~2017-06-06 05:47] MED LIST: HEPARIN 10,000 UNITS/10 ML IV ONE; NACL 0.9% IR ONE; SODIUM BICARBONATE IV ONE; XYLOCAINE 1% 20 mL INFILTRATI ONE
[2017-06-06] MEDS ORDERED: ANCEF/STERILE WATER 2 GM/20 ML 2 GM/20 ML SYRINGE IV NR (06:00)
[2017-06-06] MEDS ORDERED: NACL 0.9% 1000 ML 1,000 ML IV SCH (06:00)
[2017-06-06] MEDS ORDERED: NACL BACTERIOSTATIC INFILTRATI ONE (06:31)
[2017-06-06 06:48] LABS: Basophils % (Auto) 0.7 % (0.0-1.8); Eosinophils # (Auto) 0.5 K/mm3 (0.0-0.4); Eosinophils % (Auto) 8.7 % (0.0-4.3); Hematocrit 35.4 % (35.5-45.6); Hemoglobin 11.7 gm/dl (11.8-15.2); Lymphocytes % (Auto) 15.5 % (13.4-35.0); Mean Corpuscular HGB Conc 33 % (32-34); Mean Corpuscular Hemoglobin 29 pg (28-32); Mean Corpuscular Volume 87 fl (84-94); Monocytes # (Auto) 0.7 K/mm3 (0.0-0.8); Monocytes % (Auto) 10.9 % (0.0-7.3); Platelet Count 194 K/mm3 (140-440); Red Blood Count 4.08 M/mm3 (3.65-5.03); Red Cell Distribution Width 14.1 % (13.2-15.2)
[2017-06-06 06:59] LABS: Calcium 8.7 mg/dL (8.4-10.2)
[2017-06-06] MEDS ORDERED: HEPARIN 10,000 UNITS/10 ML ONE ×2 (07:21→09:27)
[2017-06-06] MEDS ORDERED: NACL 0.9% 500 ML 500 ML ONE (07:22)
[2017-06-06] MEDS ORDERED: NITROGLYCERIN SYRINGE 3 ML ONE (07:23)
[2017-06-06] MEDS ORDERED: MARCAINE 0.5% 30 ML INFILTRATI ONE (07:23)
[2017-06-06] MEDS ORDERED: PAPAVERINE ONE (07:24)
[2017-06-06] MEDS ORDERED: SODIUM BICARBONATE ONE (07:25)
[2017-06-06] MEDS ORDERED: XYLOCAINE 1% 20 mL ONE (07:25)
[2017-06-06] MEDS ORDERED: GELFOAM POWDER 1GM MM ONE (07:26)
[2017-06-06] MEDS ORDERED: THROMBIN (BOVINE) TP ONE ×2 (07:26→10:07)
[2017-06-06] MEDS ORDERED: GELFOAM TP ONE ×2 (07:29→10:07)
--- NOTE | 2017-06-06 07:40 | Anesthesia Day of Surgery ---
Anesthesia Day of Surgery - Day of Surgery Patient Examined: Yes Patient H&P Reviewed: Yes Patient is NPO: Yes Beta Blockers: Yes
--- NOTE | 2017-06-06 07:40 | Anesthesia Consultation ---
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
[2017-06-06] MEDS ORDERED: DILAUDID ONE (07:56)
[2017-06-06] MEDS ORDERED: XYLOCAINE MPF 2% ONE (07:56)
[2017-06-06] MEDS ORDERED: DIPRIVAN 10 MG/ML IV ONE (07:56)
[2017-06-06] MEDS ORDERED: VERSED IV NR (08:00)
[2017-06-06] MEDS ORDERED: PEPCID PO NR (08:00)
[2017-06-06] MEDS ORDERED: PEPCID IV NR (08:30)
[2017-06-06] MEDS ORDERED: MORPHINE IV PRN (08:41)
[2017-06-06] MEDS ORDERED: ZOFRAN IV PRN (08:41)
[2017-06-06] MEDS ORDERED: NORCO 5/325 PO PRN (08:41)
[2017-06-06] MEDS ORDERED: MARCAINE 0.5% INFILTRATI ONE ×2 (08:42)
[2017-06-06] MEDS ORDERED: ePHEDrine SULFATE ONE (08:44)
[2017-06-06] MEDS ORDERED: HEPARIN 10,000 UNITS/10 ML IV ONE (09:24)
[2017-06-06] MEDS ORDERED: NACL 0.9% IR ONE ×2 (09:24→09:28)
[2017-06-06] MEDS ORDERED: XYLOCAINE 1% 20 mL INFILTRATI ONE ×2 (10:00)
[2017-06-06] MEDS ORDERED: SODIUM BICARBONATE IV ONE (10:00)
--- NOTE | 2017-06-06 11:02 | Short Stay Summary ---
Short Stay Documentation Date of service: 06/06/17 - History H&P: obtained from office - Allergies and Medications Current Medications: Allergies No Known Allergies Allergy (Verified 06/06/17 06:35) Home Medications Medication Instructions Recorded Confirmed Last Taken Type Meclizine [Antivert] 1 tab PO TID PRN 02/17/17 02/17/17 Unknown History Ondansetron 8 mg PO TID PRN 02/17/17 02/17/17 Unknown History Ranitidine HCl 1 tab PO Q12HR 02/17/17 02/17/17 06/05/17 History Calcitriol [Rocaltrol] 0.5 mcg PO QDAY #30 capsule 02/28/17 06/05/17 Rx Labetalol [Normodyne TAB] 200 mg PO BID #60 tablet 02/28/17 06/05/17 16:00 Rx Simvastatin [Zocor TAB] 20 mg PO QHS #30 tablet 02/28/17 06/05/17 Rx amLODIPine [Norvasc] 10 mg PO QDAY #30 tablet 02/28/17 06/05/17 Rx hydrALAZINE [Apresoline TAB] 25 mg PO Q8HR #90 tablet 02/28/17 06/05/17 Rx Aspirin EC [Aspirin Enteric Coated 81 mg PO QDAY #30 tablet. 03/03/17 Unknown Rx TAB] Active Medications Acetaminophen/Hydrocodone Bitart ([place] 5/325) 1 each PO ONCE PRN PRN Reason: Pain, Moderate (4-6) Stop: 06/06/17 23:59 Cefazolin Sodium (Ancef/Sterile Water 2 Gm/20 Ml) 2 gm in 20 mls @ 80 mls/hr IV PREOP NR PRN Reason: Protocol Stop: 06/06/17 23:59 Sodium Chloride (Nacl 0.9% 1000 Ml) 1,000 mls @ 42 mls/hr IV DIRECT DAVEY Last Admin: 06/06/17 07:42 Dose: 42 mls/hr Midazolam HCl (Versed) 2 mg IV PREOP NR Stop: 06/06/17 23:59 Last Admin: 06/06/17 08:01 Dose: 2 mg Morphine Sulfate (Morphine) 2 mg IV Q10MIN PRN PRN Reason: Pain, Moderate (4-6) Stop: 06/06/17 18:00 Ondansetron HCl (Zofran) 4 mg IV ONCE PRN PRN Reason: Nausea And Vomiting Stop: 06/06/17 18:00 - Brief post op/procedure progress note Date of procedure: 06/06/17 Pre-op diagnosis: ESRD Post-op diagnosis: same Procedure: LUE AVF creation from cephalic vein to radial artery at mid-forearm. Anesthesia: MAC (LMA), local Findings: excellent thrill at end of case Surgeon: [place] OROPEZA Processing Manager: ZAID SILVA Estimated blood loss: minimal Pathology: none Condition: stable - Hospital course Hospital course: benign - Disposition Condition at discharge: Good Disposition: DC- TO HOME OR SELFCARE - Discharge Diagnoses (1) ESRD (end stage renal disease) on dialysis Status: Chronic Short Stay Discharge Plan Activity: advance as tolerated Diet: renal Wound: per your surgeon's advice Follow up with: [place] OROPEZA MD [Staff Physician] - 7 Days Prescriptions: HYDROcodone/APAP 5-325 [[place] 5/325] 1 each PO Q6HR PRN #40 tablet PRN Reason: Pain
--- NOTE | 2017-06-06 11:12 | Operative Report ---
Operative Report Operative Report: Date of procedure: 06/06/2017 Pre-operative diagnosis: End-stage renal failure Post-operative diagnosis: Same Procedure name: Cephalic vein to radial artery fistula at the left mid forearm Surgeon: Saad Recio MD Pigment Presser: [Glenn Spangler, PAZ] Anesthesia: Local MAC (LMA) EBL: Less than 50 mL Operative indication: Patient is a 51-year-old man with end-stage renal failure. The patient presents for creation of long-term hemodialysis access. Findings: Excellent thrill in the arteriovenous fistula at the end of the procedure. Procedure: The patient was placed on the table in the supine position. The arm was prepped with ChloraPrep solution and draped in the usual sterile fashion. The ultrasound was used to identify the cephalic vein after a tourniquet had been placed in the upper arm using a rubber glove. The vein appeared to be of adequate caliber and no thrombus was noted. The vein was visible down to the distal forearm. However there were a lot of branches in the distal part of the vein just above the wrist. I also looked at the radial artery along the forearm and noted that there was a nearly obstructive atherosclerotic plaque a few centimeters proximal to the wrist. It appeared that the risk configuration would be to mobilize the cephalic vein and moving over to the radial artery in the mid to distal forearm. An anastomosis at the wrist did not seem like it would be successful. Under local anesthesia, an incision was made on the lateral dorsal part of the midforearm. Dissection was carried out to identify the cephalic vein. Superficial nerve structures in the area were identified and spared. The cephalic vein appeared to have multiple branches along this site. The vein was dissected out to provide enough length to reach the artery. The artery was then exposed through a separate incision in the midforearm on the volar surface. The artery appeared to be of adequate caliber and did have evidence of mild atherosclerotic change. Attention was returned to the vein. The vein was divided in multiple areas to free it up so that he can go through subcutaneous tunnel to where the artery was. The vein was dilated with heparinized saline and found to be of excellent caliber. The vein was then filled with nitroglycerin solution. She was given 2000 units of intravenous heparin. The artery was occluded using vessel loops. A 7 mm arteriotomy was made in the radial artery. The artery appeared to be of adequate caliber with excellent inflow. The in-line branch of the cephalic vein was spatulated and then sewn into place onto the arteriotomy using 7-0 Proline in an end-to-side configuration. Nitroglycerin had been placed in the proximal portion of the artery. A 2 Liss catheter was used to make sure that the anastomosis was widely patent in all directions. The area was irrigated with heparinized saline solution. The anastomosis was completed. Flow was started retrograde and then antegrade with development of immediate and excellent thrill over the body of the cephalic vein. The thrill was palpable at least to the elbow. This was despite the fact that the patient' s systolic blood pressure that time was lower than desired. Because of the persistent low pressure, I gave the patient an additional 2000 units of intravenous heparin. Meticulous hemostasis was obtained in all areas. A third incision was made over a an obvious branch just proximal to the incision on the lateral side of the forearm. Side branch was easily identified and ligated with 3-0 silk. Hemostasis was obtained in all wounds. The wound was infiltrated with half percent Marcaine. Closure was done with 3-0 Vicryl and 4-0 subcuticular PDS at all incision sites. Dermabond was placed. The patient tolerated the procedure well. There was a good thrill in the fistula at the end of the procedure. Sponge, needle, and instrument counts were reported as correct. The left radial pulse was palpable distal to the anastomosis.
[2017-06-06 11:46] VITALS: BP 137/73
--- NOTE | 2017-06-06 12:21 | Post Anesthesia Evaluation ---
- Post Anesthesia Evaluation Patient Participated: Yes Airway Patent: Yes Stable Respiratory Function: Yes Nausea/Vomiting: No Temp > 96.8F: Yes Pain Manageable: Yes Adequeate Hydration: Yes Anesthesia Complications: No Block Receding Appropriately: Not Applicable Patient on Ventilator: No
== END 2017-06-06 12:10 | disposition home or self-care (01) ==
LOC: OR 05:47
PROVIDERS: ATTEND Surgery Vascular Surgery
DX: I12.0 Hypertensive chronic kidney disease with stage 5 chronic kidney disease or end stage renal disease (principal); E11.22 Type 2 diabetes mellitus with diabetic chronic kidney disease; N18.6 End stage renal disease; Z79.899 Other long term (current) drug therapy; Z86.73 Personal history of transient ischemic attack (TIA), and cerebral infarction without residual deficits; Z79.82 Long term (current) use of aspirin
CPT/HCPCS: 36415; 36821; 80048; 82962; 85025; A4649; C1757; J0690; J1170; J1644; J2250; J2405; J2704; J7030; J7040; J2440

== ENCOUNTER 2018-01-19 20:52 | Inpatient (IN) | payer MEDICARE ==
[2018-01-19 22:07] LABS: Basophils # (Auto) 0.1 K/mm3 (0.0-0.1); Basophils % (Auto) 0.9 % (0.0-1.8); Eosinophils # (Auto) 0.4 K/mm3 (0.0-0.4); Eosinophils % (Auto) 5.8 % (0.0-4.3); Hematocrit 41.1 % (35.5-45.6); Hemoglobin 14.1 gm/dl (11.8-15.2); Lymphocytes # (Auto) 1.1 K/mm3 (1.2-5.4); Lymphocytes % (Auto) 16.4 % (13.4-35.0); Mean Corpuscular HGB Conc 34 % (32-34); Mean Corpuscular Hemoglobin 32 pg (28-32); Mean Corpuscular Volume 93 fl (84-94); Monocytes # (Auto) 0.6 K/mm3 (0.0-0.8); Monocytes % (Auto) 9.3 % (0.0-7.3); Platelet Count 221 K/mm3 (140-440); Red Blood Count 4.44 M/mm3 (3.65-5.03); Red Cell Distribution Width 13.8 % (13.2-15.2)
[2018-01-19 22:31] LABS: Albumin 4.7 g/dL (3.9-5); Calcium 9.1 mg/dL (8.4-10.2)
[2018-01-19] MEDS ORDERED: CALCIUM GLUCONATE 1,000 MG in NACL 0.9% 100 ML IV ONE (23:14)
[2018-01-19] MEDS ORDERED: PROVENTIL IH ONE (23:14)
[2018-01-19] MEDS ORDERED: SODIUM BICARBONATE IV ONE (23:14)
--- NOTE | 2018-01-19 23:14 | Emergency Department Report ---
HPI - General Chief Complaint: Dizziness Time Seen by Provider: 01/19/18 22:37 - HPI HPI: Room 23 The patient is a 52-year-old male presenting with a chief complaint of dizziness. The patient states she was at dialysis today for 4 hours. The patient states while on dialysis his blood pressure became low. The patient states he complained of some dizziness and nausea. While at dialysis patient was given something to drink any chocolate bar and his blood pressure normalized. The patient was asymptomatic so is discharged home. The patient states while at home began to feel dizzy once he stood up. Patient landed dizziness and weakness. Patient denied any other complaints. Patient currently feels well and denies any symptoms Location: [See above] Duration: [See above] Quality: Dizziness Severity: Currently 0/10 Modifying factors: [see above] Context: [see above] Mode of transportation: [not driving] ED Past Medical Hx - Past Medical History Hx Hypertension: Yes (takes several meds, Beta eva last night) Hx CVA: Yes Hx Diabetes: Yes (Type 2) Hx GERD: Yes Additional medical history: Vertigo - Surgical History Past Surgical History?: No Additional Surgical History: Left upper extremity fistula - Family History Family history: no significant - Social History Smoking Status: Never Smoker Substance Use Type: None - Medications Home Medications: Home Medications Medication Instructions Recorded Confirmed Last Taken Type Meclizine [Antivert] 1 tab PO TID PRN 02/17/17 02/17/17 Unknown History Ondansetron 8 mg PO TID PRN 02/17/17 02/17/17 Unknown History Ranitidine HCl 1 tab PO Q12HR 02/17/17 02/17/17 06/05/17 History Calcitriol [Rocaltrol] 0.5 mcg PO QDAY #30 capsule 02/28/17 06/05/17 Rx Labetalol [Normodyne TAB] 200 mg PO BID #60 tablet 02/28/17 06/05/17 16:00 Rx Simvastatin [Zocor TAB] 20 mg PO QHS #30 tablet 02/28/17 06/05/17 Rx amLODIPine [Norvasc] 10 mg PO QDAY #30 tablet 02/28/17 06/05/17 Rx hydrALAZINE [Apresoline TAB] 25 mg PO Q8HR #90 tablet 02/28/17 06/05/17 Rx Aspirin EC [Aspirin Enteric Coated 81 mg PO QDAY #30 tablet. 03/03/17 Unknown Rx TAB] HYDROcodone/APAP 5-325 [[place] 1 each PO Q6HR PRN #40 tablet 06/06/17 Unknown Rx 5/325] ED Review of Systems ROS: Stated complaint: DIZZINESS Other details as noted in HPI Constitutional: no symptoms reported Eyes: denies: eye pain ENT: denies: throat pain Respiratory: no symptoms reported Cardiovascular: denies: chest pain Endocrine: no symptoms reported Gastrointestinal: nausea Musculoskeletal: denies: back pain Neurological: other (dizziness). denies: headache Physical Exam - Physical Exam Vital Signs: Vital Signs 01/19/18 21:49 Temperature 98 F Pulse Rate 87 Respiratory 16 Rate Blood Pressure 100/65 O2 Sat by Pulse 99 Oximetry Physical Exam: GENERAL: The patient is well-developed well-nourished male lying on stretcher not appearing to be in acute distress. [] HEENT: Normocephalic. Atraumatic. Extraocular motions are intact. Patient has moist mucous membranes. No nystagmus NECK: Supple. Trachea midline CHEST/LUNGS: Clear to auscultation. There is no respiratory distress noted. HEART/CARDIOVASCULAR: Regular. There is no tachycardia. There is no gallop rub or murmur. ABDOMEN: Abdomen is soft, nontender. Patient has normal bowel sounds. There is no abdominal distention. SKIN: There is no rash. There is no edema. There is no diaphoresis. NEURO: The patient is awake, alert, and oriented. The patient is cooperative. The patient has no focal neurologic deficits. The patient has normal speech. Cranial nerves II through XII grossly intact, no drift MUSCULOSKELETAL: There is no evidence of acute injury. ED Course Vital Signs 01/19/18 21:49 Temperature 98 F Pulse Rate 87 Respiratory 16 Rate Blood Pressure 100/65 O2 Sat by Pulse 99 Oximetry - Consultations Consultation #1: 01/19/18 23:20 Nephrology paged 01/19/18 23:[address] Ledesma-will arrange for hemodialysis tonight. Recommends administering Kayexalate ED Medical Decision Making - Lab Data Result diagrams: 01/19/18 21:58 01/19/18 22:47 Laboratory Tests 01/19/18 01/19/18 01/19/18 21:58 21:58 22:47 WBC 6.6 RBC 4.44 Hgb 14.1 Hct 41.1 MCV 93 MCH 32 MCHC 34 RDW 13.8 Plt Count 221 Lymph % (Auto) 16.4 [place] % (Auto) 9.3 H Eos % (Auto) 5.8 H Baso % (Auto) 0.9 Lymph # 1.1 L [place] # 0.6 Eos # 0.4 Baso # 0.1 Seg Neutrophils % 67.6 Seg Neutrophils # 4.4 Sodium 134 L Potassium 6.4 H* 5.9 H Chloride 89.5 L Carbon Dioxide 28 Anion Gap 23 BUN 41 H Creatinine 6.9 H Estimated GFR 8 BUN/Creatinine Ratio 6 Glucose 240 H Calcium 9.1 Total Bilirubin 0.40 AST 17 ALT 10 Alkaline Phosphatase 138 H Total Protein 8.3 H Albumin 4.7 Albumin/Globulin Ratio 1.3 - EKG Data -: EKG Interpreted by Me EKG shows normal: sinus rhythm Rate: normal - EKG Data When compared to previous EKG there are: previous EKG unavailable Interpretation: other (slightly peaked T waves) - Differential Diagnosis hypovolemia, hyperkalemia Critical care attestation.: If time is entered above; I have spent that time in minutes in the direct care of this critically ill patient, excluding procedure time. ED Disposition Clinical Impression: Hyperkalemia, Orthostatic hypotension Disposition: OP ADMIT IP TO THIS HOSP Is pt being admited?: Yes Does the pt Need Aspirin: No Condition: Stable Time of Disposition: 23:22 (hospitalist paged (Dr Rosado))
[2018-01-19] MEDS ORDERED: NACL 0.9% 500 ML 500 ML IV ONE (23:19)
[2018-01-19] MEDS ORDERED: KIONEX PO ONE (23:31)
[2018-01-19] MEDS ORDERED: ZOFRAN IV PRN (23:59)
[2018-01-19] MEDS ORDERED: SODIUM CHLORIDE FLUSH SYRINGE 10 ML IV PRN (23:59)
[2018-01-19] MEDS ORDERED: MORPHINE IV PRN (23:59)
[2018-01-19] MEDS ORDERED: TYLENOL PO PRN (23:59)
[2018-01-19] MEDS ORDERED: PERCOCET 5/325 PO PRN (23:59)
--- NOTE | 2018-01-20 00:02 | History and Physical Report ---
History of Present Illness Date of examination: 01/19/18 Date of admission: 01/19/2018 Chief complaint: Chief complaint Seen with dizziness and weakness since dialysis. History of present illness: [place]: 52-year-old male with history of hypertension end-stage renal disease has a 69-year-old disease and hyperlipidemia comes in for severe dizziness. Patient had dialysis for 4 hours today. After dialysis and was feeling dizzy and was given some fluids to drink after which he felt better. Patient went home and was asymptomatic for a few hours. Started feeling dizzy especially when standing up. In the ER his potassium was also high and hence being admitted. No chest pain. No shortness of breath. Past Medical History Hx Hypertension: Yes (takes several meds, Beta eva last night) Hx CVA: Yes Hx Diabetes: Yes (Type 2) Hx GERD: Yes Additional medical history: Vertigo - Surgical History Past Surgical History?: No Additional Surgical History: Left upper extremity fistula - Family History Family history: no significant - Social History Smoking Status: Never Smoker Substance Use Type: None - Medications Home Medications: Home Medications Medication Instructions Recorded Confirmed Last Taken Type Meclizine [Antivert] 1 tab PO TID PRN 02/17/17 02/17/17 Unknown History Ondansetron 8 mg PO TID PRN 02/17/17 02/17/17 Unknown History Ranitidine HCl 1 tab PO Q12HR 02/17/17 02/17/17 06/05/17 History Calcitriol [Rocaltrol] 0.5 mcg PO QDAY #30 capsule 02/28/17 06/05/17 Rx Labetalol [Normodyne TAB] 200 mg PO BID #60 tablet 02/28/17 06/05/17 16:00 Rx Simvastatin [Zocor TAB] 20 mg PO QHS #30 tablet 02/28/17 06/05/17 Rx amLODIPine [Norvasc] 10 mg PO QDAY #30 tablet 02/28/17 06/05/17 Rx hydrALAZINE [Apresoline TAB] 25 mg PO Q8HR #90 tablet 02/28/17 06/05/17 Rx Aspirin EC [Aspirin Enteric Coated 81 mg PO QDAY #30 tablet. 03/03/17 Unknown Rx TAB] HYDROcodone/APAP 5-325 [[place] 1 each PO Q6HR PRN #40 tablet 06/06/17 Unknown Rx 5/325] Review of Systems ROS: Stated complaint: DIZZINESS Other details as noted in HPI Constitutional: no symptoms reported Eyes: denies: eye pain ENT: denies: throat pain Respiratory: no symptoms reported Cardiovascular: denies: chest pain Endocrine: no symptoms reported Gastrointestinal: nausea Musculoskeletal: denies: back pain Neurological: other (dizziness). denies: headache 14 point review of systems done 14 point review of systems done and otherwise negative Medications and Allergies Allergies Allergy/AdvReac Type Severity Reaction Status Date / Time No Known Allergies Allergy Verified 06/06/17 06:35 Home Medications Medication Instructions Recorded Confirmed Last Taken Type Labetalol [Normodyne TAB] 200 mg PO BID #60 tablet 02/28/17 01/20/18 06/05/17 16 :00 Rx Simvastatin [Zocor TAB] 20 mg PO QHS #30 tablet 02/28/17 01/20/18 06/05/17 Rx amLODIPine [Norvasc] 10 mg PO QDAY #30 tablet 02/28/17 01/20/18 06/05/17 Rx hydrALAZINE [Apresoline TAB] 25 mg PO DAILY 01/20/18 01/20/18 Unknown History Active Meds: Active Medications Acetaminophen (Tylenol) 650 mg PO Q4H PRN PRN Reason: Pain MILD(1-3)/Fever >100.5/GARCIA Heparin Sodium (Porcine) (Heparin) 5,000 unit SUB-Q Q12HR DAVEY Morphine Sulfate (Morphine) 2 mg IV Q4H PRN PRN Reason: Pain, Moderate (4-6) Ondansetron HCl (Zofran) 4 mg IV Q8H PRN PRN Reason: Nausea And Vomiting Oxycodone/Acetaminophen (Percocet 5/325) 1 tab PO Q6H PRN PRN Reason: Pain, Moderate (4-6) Sodium Chloride (Sodium Chloride Flush Syringe 10 Ml) 10 ml IV BID DAVEY Sodium Chloride (Sodium Chloride Flush Syringe 10 Ml) 10 ml IV PRN PRN PRN Reason: LINE FLUSH Exam - Constitutional Vitals: Temp Pulse Resp BP Pulse Ox 98 F 87 16 100/65 99 01/19/18 21:49 01/19/18 21:49 01/19/18 21:49 01/19/18 21:49 01/19/18 21:49 General appearance: Present: no acute distress, well-nourished - EENT Eyes: Present: PERRL ENT: hearing intact, clear oral mucosa - Neck Neck: Present: supple, normal ROM - Respiratory Respiratory effort: normal Respiratory: bilateral: CTA - Cardiovascular Heart rate: 76 Rhythm: regular Heart Sounds: Present: S1 & S2. Absent: rub, click - Extremities Extremities: no ischemia, pulses intact, pulses symmetrical, No edema Peripheral Pulses: within normal limits - Abdominal General gastrointestinal: Present: soft, non-tender, non-distended, normal bowel sounds Male genitourinary: Present: normal - Rectal Rectal Exam: deferred - Integumentary Integumentary: Present: clear, warm, dry - Musculoskeletal Musculoskeletal: gait normal, strength equal bilaterally - Psychiatric Psychiatric: appropriate mood/affect, intact judgment & insight - Neurologic Neurologic: CNII-XII intact, moves all extremities - Allied Health Allied health notes reviewed: nursing, case management Results - Labs CBC & Chem 7: 01/19/18 21:58 01/19/18 22:47 Labs: Laboratory Last Values WBC 6.6 K/mm3 (4.5-11.0) 01/19/18 21:58 RBC 4.44 M/mm3 (3.65-5.03) 01/19/18 21:58 Hgb 14.1 gm/dl (11.8-15.2) 01/19/18 21:58 Hct 41.1 % (35.5-45.6) 01/19/18 21:58 MCV 93 fl (84-94) 01/19/18 21:58 MCH 32 pg (28-32) 01/19/18 21:58 MCHC 34 % (32-34) 01/19/18 21:58 RDW 13.8 % (13.2-15.2) 01/19/18 21:58 Plt Count 221 K/mm3 (140-440) 01/19/18 21:58 Lymph % (Auto) 16.4 % (13.4-35.0) 01/19/18 21:58 [place] % (Auto) 9.3 % (0.0-7.3) H 01/19/18 21:58 Eos % (Auto) 5.8 % (0.0-4.3) H 01/19/18 21:58 Baso % (Auto) 0.9 % (0.0-1.8) 01/19/18 21:58 Lymph # 1.1 K/mm3 (1.2-5.4) L 01/19/18 21:58 [place] # 0.6 K/mm3 (0.0-0.8) 01/19/18 21:58 Eos # 0.4 K/mm3 (0.0-0.4) 01/19/18 21:58 Baso # 0.1 K/mm3 (0.0-0.1) 01/19/18 21:58 Seg Neutrophils % 67.6 % (40.0-70.0) 01/19/18 21:58 Seg Neutrophils # 4.4 K/mm3 (1.8-7.7) 01/19/18 21:58 Sodium 134 mmol/L (137-145) L 01/19/18 21:58 Potassium 5.9 mmol/L (3.6-5.0) H 01/19/18 22:47 Chloride 89.5 mmol/L (98-107) L 01/19/18 21:58 Carbon Dioxide 28 mmol/L (22-30) 01/19/18 21:58 Anion Gap 23 mmol/L 01/19/18 21:58 BUN 41 mg/dL (9-20) H 01/19/18 21:58 Creatinine 6.9 mg/dL (0.8-1.5) H 01/19/18 21:58 Estimated GFR 8 ml/min 01/19/18 21:58 BUN/Creatinine Ratio 6 % 01/19/18 21:58 Glucose 240 mg/dL (75-100) H 01/19/18 21:58 Calcium 9.1 mg/dL (8.4-10.2) 01/19/18 21:58 Total Bilirubin 0.40 mg/dL (0.1-1.2) 01/19/18 21:58 AST 17 units/L (5-40) 01/19/18 21:58 ALT 10 units/L (7-56) 01/19/18 21:58 Alkaline Phosphatase 138 units/L (35-129) H 01/19/18 21:58 Total Protein 8.3 g/dL (6.3-8.2) H 01/19/18 21:58 Albumin 4.7 g/dL (3.9-5) 01/19/18 21:58 Albumin/Globulin Ratio 1.3 % 01/19/18 21:58 Short CBC 01/19/18 Range/Units 21:58 WBC 6.6 (4.5-11.0) K/mm3 Hgb 14.1 (11.8-15.2) gm/dl Hct 41.1 (35.5-45.6) % Plt Count 221 (140-440) K/mm3 BMP 01/19/18 01/19/18 21:58 22:47 Sodium 134 L Potassium 6.4 H* 5.9 H Chloride 89.5 L Carbon Dioxide 28 BUN 41 H Creatinine 6.9 H Glucose 240 H Calcium 9.1 Liver Function 01/19/18 Range/Units 21:58 Total Bilirubin 0.40 (0.1-1.2) mg/dL AST 17 (5-40) units/L ALT 10 (7-56) units/L Alkaline Phosphatase 138 H (35-129) units/L Albumin 4.7 (3.9-5) g/dL - Imaging and Cardiology EKG: report reviewed (sinus rhythm 77/min ) Assessment and Plan Advance Directives: Yes (full code) VTE prophylaxis?: Chemical Plan of care discussed with patient/family: Yes - Patient Problems (1) Hyperkalemia Current Visit: Yes Status: Acute Plan to address problem: Kayexalate and dialysis (2) Orthostatic hypotension Current Visit: Yes Status: Acute Plan to address problem: We will hold antihypertensives for the time being (3) ESRD needing dialysis Current Visit: Yes Status: Chronic Plan to address problem: Continue dialysis (4) GERD (gastroesophageal reflux disease) Current Visit: Yes Status: Chronic Qualifiers: Esophagitis presence: without esophagitis Qualified Code(s): K21.9 - Gastro -esophageal reflux disease without esophagitis Plan to address problem: Continue ranitidine (5) Hypertension Current Visit: Yes Status: Chronic Qualifiers: Hypertension type: essential hypertension Qualified Code(s): I10 - Essential (primary) hypertension Plan to address problem: We will hold the blood pressure medicines for now Patient may have had more fluid taken out We will trend the blood pressure and resume the medicines (6) Hyperlipidemia Current Visit: Yes Status: Chronic Qualifiers: Hyperlipidemia type: mixed hyperlipidemia Qualified Code(s): E78.2 - Mixed hyperlipidemia Plan to address problem: Continue statins (7) DVT prophylaxis Current Visit: Yes Status: Acute Plan to address problem: Heparin 5000 every 12
[2018-01-20] MEDS ORDERED: NACL 0.9% 100 ML IV PRN (10:40)
--- NOTE | 2018-01-20 10:44 | Consultation ---
History of Present Illness - Reason for Consult Consult date: 01/20/18 end stage renal disease, hyperkalemia Requesting physician: RHONDA HOWARD - History of Present Illness The patient is a 52-year-old male presenting with a chief complaint of dizziness. The patient states she was at dialysis today for 4 hours. The patient states while on dialysis his blood pressure became low. The patient states he complained of some dizziness and nausea. While at dialysis patient was given something to drink any chocolate bar and his blood pressure normalized. The patient was asymptomatic so is discharged home. The patient states while at home began to feel dizzy once he stood up. Patient landed dizziness and weakness. Patient denied any other complaints. Patient currently feels well and denies any symptoms - Past Medical History Hx Hypertension: Yes (takes several meds, Beta eva last night) Hx CVA: Yes Hx Diabetes: Yes (Type 2) Hx GERD: Yes Additional medical history: Vertigo - Surgical History Past Surgical History?: No Additional Surgical History: Left upper extremity fistula - Family History Family history: no significant - Social History Smoking Status: Never Smoker Substance Use Type: None ROS: Stated complaint: DIZZINESS Other details as noted in HPI Constitutional: no symptoms reported Eyes: denies: eye pain ENT: denies: throat pain Respiratory: no symptoms reported Cardiovascular: denies: chest pain Endocrine: no symptoms reported Gastrointestinal: nausea Musculoskeletal: denies: back pain Neurological: other (dizziness). denies: headache Medications and Allergies Allergies Allergy/AdvReac Type Severity Reaction Status Date / Time No Known Allergies Allergy Verified 06/06/17 06:35 Home Medications Medication Instructions Recorded Confirmed Last Taken Type Labetalol [Normodyne TAB] 200 mg PO BID #60 tablet 02/28/17 01/20/18 06/05/17 16 :00 Rx Simvastatin [Zocor TAB] 20 mg PO QHS #30 tablet 02/28/17 01/20/18 06/05/17 Rx amLODIPine [Norvasc] 10 mg PO QDAY #30 tablet 02/28/17 01/20/18 06/05/17 Rx hydrALAZINE [Apresoline TAB] 25 mg PO DAILY 01/20/18 01/20/18 Unknown History Active Meds: Active Medications Acetaminophen (Tylenol) 650 mg PO Q4H PRN PRN Reason: Pain MILD(1-3)/Fever >100.5/GARCIA Amlodipine Besylate (Norvasc) 10 mg PO QDAY [facility] Heparin Sodium (Porcine) (Heparin) 5,000 unit SUB-Q Q12HR [facility] Sodium Chloride (Nacl 0.9%) 100 mls @ 999 mls/hr IV NORMA PRN PRN Reason: Hypotension Morphine Sulfate (Morphine) 2 mg IV Q4H PRN PRN Reason: Pain, Moderate (4-6) Ondansetron HCl (Zofran) 4 mg IV Q8H PRN PRN Reason: Nausea And Vomiting Oxycodone/Acetaminophen (Percocet 5/325) 1 tab PO Q6H PRN PRN Reason: Pain, Moderate (4-6) Pravastatin Sodium (Pravachol) 40 mg PO QHS [facility] Sodium Chloride (Sodium Chloride Flush Syringe 10 Ml) 10 ml IV BID DAVEY Sodium Chloride (Sodium Chloride Flush Syringe 10 Ml) 10 ml IV PRN PRN PRN Reason: LINE FLUSH Exam - Vital Signs Vital signs: Vital Signs Temp Pulse Resp BP Pulse Ox 98 F 87 16 100/65 99 01/19/18 21:49 01/19/18 21:49 01/19/18 21:49 01/19/18 21:49 01/19/18 21:49 - Physical Exam Narrative exam: GENERAL: The patient is well-developed well-nourished male lying on stretcher not appearing to be in acute distress. [] HEENT: Normocephalic. Atraumatic. Extraocular motions are intact. Patient has moist mucous membranes. No nystagmus NECK: Supple. Trachea midline CHEST/LUNGS: Clear to auscultation. There is no respiratory distress noted. HEART/CARDIOVASCULAR: Regular. There is no tachycardia. There is no gallop rub or murmur. ABDOMEN: Abdomen is soft, nontender. Patient has normal bowel sounds. There is no abdominal distention. SKIN: There is no rash. There is no edema. There is no diaphoresis. NEURO: The patient is awake, alert, and oriented. The patient is cooperative. The patient has no focal neurologic deficits. The patient has normal speech. Cranial nerves II through XII grossly intact, no drift MUSCULOSKELETAL: There is no evidence of acute injury. Results - Lab Results 01/19/18 21:58 01/19/18 22:47 Most recent lab results Calcium 9.1 mg/dL (8.4-10.2) 01/19/18 21:58 Assessment and Plan Impression: * ESRD * Accelerated hypertension * Type II diabetes mellitus * Anemia * hyperkalemia Plan: * HD TTS schedule. s/p permcath placement * Epogen with dialysis * hd today * uf as tolerated * check pre and post bun * renal diet * Serologic work up pending * Continue BP medications - BP control improved * Avoid nephrotoxins * Dose medications for renal function *
[2018-01-20] MEDS: NORVASC PO SCH (10:47)
[2018-01-20] MEDS: HEPARIN SUB-Q SCH ×2 (10:47→22:18)
[2018-01-20] MEDS: SODIUM CHLORIDE FLUSH SYRINGE 10 ML IV SCH ×2 (10:48→22:18)
--- NOTE | 2018-01-20 16:19 | Progress Note ---
Assessment and Plan Assessment and plan: Hyperkalemia Kayexalate and dialysis Orthostatic hypotension We will hold antihypertensives for now Presyncope Check carotid dopplers and ECHO ESRD needing dialysis Continue dialysis GERD (gastroesophageal reflux disease) Continue ranitidine Hypertension We will hold the blood pressure medicines for now We will trend the blood pressure and resume the medicines as needed Hyperlipidemia Continue statins DVT prophylaxis Heparin 5000 every 12 History Interval history: No new issues overnight Hospitalist Physical - Constitutional Vitals: Temp Pulse Resp BP Pulse Ox 98.2 F 90 18 130/67 97 01/20/18 14:39 01/20/18 15:30 01/20/18 14:39 01/20/18 15:30 01/20/18 08:32 General appearance: Present: no acute distress, well-nourished - EENT Eyes: Present: PERRL, EOM intact ENT: hearing intact, clear oral mucosa, dentition normal - Neck Neck: Present: supple, normal ROM - Respiratory Respiratory effort: normal Respiratory: bilateral: CTA - Cardiovascular Rhythm: regular Heart Sounds: Present: S1 & S2. Absent: gallop, rub - Extremities Extremities: no ischemia, No edema, Full ROM - Abdominal General gastrointestinal: soft, non-tender, non-distended, normal bowel sounds - Integumentary Integumentary: Present: clear, warm, dry - Neurologic Neurologic: CNII-XII intact, moves all extremities Results - Labs CBC & Chem 7: 01/19/18 21:58 01/19/18 22:47 Labs: Laboratory Last Values WBC 6.6 K/mm3 (4.5-11.0) 01/19/18 21:58 RBC 4.44 M/mm3 (3.65-5.03) 01/19/18 21:58 Hgb 14.1 gm/dl (11.8-15.2) 01/19/18 21:58 Hct 41.1 % (35.5-45.6) 01/19/18 21:58 MCV 93 fl (84-94) 01/19/18 21:58 MCH 32 pg (28-32) 01/19/18 21:58 MCHC 34 % (32-34) 01/19/18 21:58 RDW 13.8 % (13.2-15.2) 01/19/18 21:58 Plt Count 221 K/mm3 (140-440) 01/19/18 21:58 Lymph % (Auto) 16.4 % (13.4-35.0) 01/19/18 21:58 [place] % (Auto) 9.3 % (0.0-7.3) H 01/19/18 21:58 Eos % (Auto) 5.8 % (0.0-4.3) H 01/19/18 21:58 Baso % (Auto) 0.9 % (0.0-1.8) 01/19/18 21:58 Lymph # 1.1 K/mm3 (1.2-5.4) L 01/19/18 21:58 [place] # 0.6 K/mm3 (0.0-0.8) 01/19/18 21:58 Eos # 0.4 K/mm3 (0.0-0.4) 01/19/18 21:58 Baso # 0.1 K/mm3 (0.0-0.1) 01/19/18 21:58 Seg Neutrophils % 67.6 % (40.0-70.0) 01/19/18 21:58 Seg Neutrophils # 4.4 K/mm3 (1.8-7.7) 01/19/18 21:58 Sodium 134 mmol/L (137-145) L 01/19/18 21:58 Potassium 5.9 mmol/L (3.6-5.0) H 01/19/18 22:47 Chloride 89.5 mmol/L (98-107) L 01/19/18 21:58 Carbon Dioxide 28 mmol/L (22-30) 01/19/18 21:58 Anion Gap 23 mmol/L 01/19/18 21:58 BUN 41 mg/dL (9-20) H 01/19/18 21:58 Creatinine 6.9 mg/dL (0.8-1.5) H 01/19/18 21:58 Estimated GFR 8 ml/min 01/19/18 21:58 BUN/Creatinine Ratio 6 % 01/19/18 21:58 Glucose 240 mg/dL (75-100) H 01/19/18 21:58 Hemoglobin A1c 6.0 % (4-6) 01/20/18 00:19 Calcium 9.1 mg/dL (8.4-10.2) 01/19/18 21:58 Total Bilirubin 0.40 mg/dL (0.1-1.2) 01/19/18 21:58 AST 17 units/L (5-40) 01/19/18 21:58 ALT 10 units/L (7-56) 01/19/18 21:58 Alkaline Phosphatase 138 units/L (35-129) H 01/19/18 21:58 Total Protein 8.3 g/dL (6.3-8.2) H 01/19/18 21:58 Albumin 4.7 g/dL (3.9-5) 01/19/18 21:58 Albumin/Globulin Ratio 1.3 % 01/19/18 21:58
[2018-01-20] MEDS ORDERED: NON-FORMULARY (Simvastatin 20 MG) PO SCH (22:00)
[2018-01-20] MEDS: PRAVACHOL PO SCH (22:15)
[2018-01-21 09:36] LABS: Basophils % (Auto) 0.8 % (0.0-1.8); Eosinophils # (Auto) 0.3 K/mm3 (0.0-0.4); Eosinophils % (Auto) 5.9 % (0.0-4.3); Hematocrit 40.6 % (35.5-45.6); Hemoglobin 13.8 gm/dl (11.8-15.2); Lymphocytes % (Auto) 18.2 % (13.4-35.0); Mean Corpuscular HGB Conc 34 % (32-34); Mean Corpuscular Hemoglobin 32 pg (28-32); Mean Corpuscular Volume 93 fl (84-94); Monocytes # (Auto) 0.4 K/mm3 (0.0-0.8); Monocytes % (Auto) 7.7 % (0.0-7.3); Platelet Count 184 K/mm3 (140-440); Red Blood Count 4.37 M/mm3 (3.65-5.03); Red Cell Distribution Width 13.5 % (13.2-15.2)
[2018-01-21 10:00] LABS: Albumin 4.6 g/dL (3.9-5); Calcium 9.1 mg/dL (8.4-10.2)
[2018-01-21] MEDS: NORVASC PO SCH (11:58)
[2018-01-21] MEDS: HEPARIN SUB-Q SCH ×2 (11:59→22:18)
[2018-01-21] MEDS: SODIUM CHLORIDE FLUSH SYRINGE 10 ML IV SCH ×2 (12:04→22:18)
--- NOTE | 2018-01-21 14:37 | Progress Note ---
Assessment and Plan Assessment and plan: Hyperkalemia Kayexalate and dialysis Orthostatic hypotension We will hold antihypertensives for now Presyncope Carotid dopplers negative and ECHO EF 55-60% with diastolic dysfxn. Pt eval--? vestibular etiology ESRD needing dialysis Continue dialysis GERD (gastroesophageal reflux disease) Continue ranitidine Hypertension We will hold the blood pressure medicines for now--normotensive off meds We will trend the blood pressure and resume the medicines as needed Hyperlipidemia Continue statins DVT prophylaxis Heparin 5000 every 12hrs History Interval history: No new issues overnight Hospitalist Physical - Constitutional Vitals: Temp Pulse Resp BP Pulse Ox 97.6 F 89 20 139/81 99 01/21/18 13:26 01/21/18 13:26 01/21/18 13:26 01/21/18 13:26 01/21/18 10:00 General appearance: Present: no acute distress, well-nourished - EENT Eyes: Present: PERRL, EOM intact ENT: hearing intact, clear oral mucosa, dentition normal - Neck Neck: Present: supple, normal ROM - Respiratory Respiratory effort: normal Respiratory: bilateral: CTA - Cardiovascular Rhythm: regular Heart Sounds: Present: S1 & S2. Absent: gallop, rub - Extremities Extremities: no ischemia, No edema, Full ROM - Abdominal General gastrointestinal: soft, non-tender, non-distended, normal bowel sounds - Integumentary Integumentary: Present: clear, warm, dry - Neurologic Neurologic: CNII-XII intact, moves all extremities Results - Labs CBC & Chem 7: 01/21/18 09:09 01/21/18 09:09 Labs: Laboratory Last Values WBC 5.3 K/mm3 (4.5-11.0) 01/21/18 09:09 RBC 4.37 M/mm3 (3.65-5.03) 01/21/18 09:09 Hgb 13.8 gm/dl (11.8-15.2) 01/21/18 09:09 Hct 40.6 % (35.5-45.6) 01/21/18 09:09 MCV 93 fl (84-94) 01/21/18 09:09 MCH 32 pg (28-32) 01/21/18 09:09 MCHC 34 % (32-34) 01/21/18 09:09 RDW 13.5 % (13.2-15.2) 01/21/18 09:09 Plt Count 184 K/mm3 (140-440) 01/21/18 09:09 Lymph % (Auto) 18.2 % (13.4-35.0) 01/21/18 09:09 [place] % (Auto) 7.7 % (0.0-7.3) H 01/21/18 09:09 Eos % (Auto) 5.9 % (0.0-4.3) H 01/21/18 09:09 Baso % (Auto) 0.8 % (0.0-1.8) 01/21/18 09:09 Lymph # 1.0 K/mm3 (1.2-5.4) L 01/21/18 09:09 [place] # 0.4 K/mm3 (0.0-0.8) 01/21/18 09:09 Eos # 0.3 K/mm3 (0.0-0.4) 01/21/18 09:09 Baso # 0.0 K/mm3 (0.0-0.1) 01/21/18 09:09 Seg Neutrophils % 67.4 % (40.0-70.0) 01/21/18 09:09 Seg Neutrophils # 3.5 K/mm3 (1.8-7.7) 01/21/18 09:09 Sodium 143 mmol/L (137-145) D 01/21/18 09:09 Potassium 4.1 mmol/L (3.6-5.0) D 01/21/18 09:09 Chloride 95.1 mmol/L (98-107) L 01/21/18 09:09 Carbon Dioxide 29 mmol/L (22-30) 01/21/18 09:09 Anion Gap 23 mmol/L 01/21/18 09:09 BUN 30 mg/dL (9-20) H 01/21/18 09:09 Creatinine 7.1 mg/dL (0.8-1.5) H 01/21/18 09:09 Estimated GFR 8 ml/min 01/21/18 09:09 BUN/Creatinine Ratio 4 % 01/21/18 09:09 Glucose 169 mg/dL (75-100) H 01/21/18 09:09 Hemoglobin A1c 6.0 % (4-6) 01/20/18 00:19 Calcium 9.1 mg/dL (8.4-10.2) 01/21/18 09:09 Total Bilirubin 0.50 mg/dL (0.1-1.2) 01/21/18 09:09 AST 14 units/L (5-40) 01/21/18 09:09 ALT 11 units/L (7-56) 01/21/18 09:09 Alkaline Phosphatase 101 units/L (35-129) 01/21/18 09:09 Total Protein 8.0 g/dL (6.3-8.2) 01/21/18 09:09 Albumin 4.6 g/dL (3.9-5) 01/21/18 09:09 Albumin/Globulin Ratio 1.4 % 01/21/18 09:09
[2018-01-21] MEDS: PRAVACHOL PO SCH (22:17)
--- NOTE | 2018-01-22 10:14 | Progress Note ---
Assessment and Plan Impression: * ESRD * Accelerated hypertension * Type II diabetes mellitus * Anemia * hyperkalemia Plan: * HD TTS schedule. plan for hd today as well * Epogen with dialysis * hd today * uf as tolerated * renal diet * Serologic work up pending * Continue BP medications - BP control improved * Avoid nephrotoxins * Dose medications for renal function * ok to dc after hd from renal standpoint Subjective Date of service: 01/22/18 Principal diagnosis: esrd Interval history: resting well in bed today Objective - Exam Narrative Exam: GENERAL: The patient is well-developed well-nourished male lying on stretcher not appearing to be in acute distress. [] HEENT: Normocephalic. Atraumatic. Extraocular motions are intact. Patient has moist mucous membranes. No nystagmus NECK: Supple. Trachea midline CHEST/LUNGS: Clear to auscultation. There is no respiratory distress noted. HEART/CARDIOVASCULAR: Regular. There is no tachycardia. There is no gallop rub or murmur. ABDOMEN: Abdomen is soft, nontender. Patient has normal bowel sounds. There is no abdominal distention. SKIN: There is no rash. There is no edema. There is no diaphoresis. NEURO: The patient is awake, alert, and oriented. The patient is cooperative. The patient has no focal neurologic deficits. The patient has normal speech. Cranial nerves II through XII grossly intact, no drift MUSCULOSKELETAL: There is no evidence of acute injury. - Vital Signs Vital signs: Vital Signs - 12hr 01/21/18 01/22/18 01/22/18 22:22 00:17 04:23 Temperature 98.5 F 98.2 F Pulse Rate 82 77 Pulse Rate [ Apical] Pulse Rate [ Left Dorsalis Pedis] Pulse Rate [ Left Radial] Pulse Rate [ Right Dorsalis Pedis] Pulse Rate [ Right Radial] Respiratory 18 18 Rate Respiratory 20 Rate [Soft Tissue] Blood Pressure 128/70 129/70 O2 Sat by Pulse 96 95 Oximetry 01/22/18 01/22/18 07:48 09:00 Temperature 98.0 F Pulse Rate 82 Pulse Rate [ 88 Apical] Pulse Rate [ 88 Left Dorsalis Pedis] Pulse Rate [ 88 Left Radial] Pulse Rate [ 88 Right Dorsalis Pedis] Pulse Rate [ 88 Right Radial] Respiratory 18 21 Rate Respiratory Rate [Soft Tissue] Blood Pressure 142/84 O2 Sat by Pulse 100 99 Oximetry - Lab 01/21/18 09:09 01/21/18 09:09 Most recent lab results Calcium 9.1 mg/dL (8.4-10.2) 01/21/18 09:09
[2018-01-22] MEDS: HEPARIN SUB-Q SCH ×2 (10:30→21:48)
--- NOTE | 2018-01-22 13:06 | Progress Note ---
Assessment and Plan Assessment and plan: Hyperkalemia Kayexalate and dialysis Orthostatic hypotension We will hold antihypertensives for now Presyncope Carotid dopplers negative and ECHO EF 55-60% with diastolic dysfxn. Pt eval--? vestibular etiology ESRD needing dialysis Continue dialysis GERD (gastroesophageal reflux disease) Continue ranitidine Hypertension We will hold the blood pressure medicines for now--normotensive off meds We will trend the blood pressure and resume the medicines as needed Hyperlipidemia Continue statins DVT prophylaxis Heparin 5000 every 12hrs Disposition Await PT eval History Interval history: No new issues overnight Hospitalist Physical - Constitutional Vitals: Temp Pulse Resp BP Pulse Ox 98.0 F 85 18 132/86 99 01/22/18 10:55 01/22/18 12:30 01/22/18 10:55 01/22/18 12:30 01/22/18 09:00 General appearance: Present: no acute distress, well-nourished - EENT Eyes: Present: PERRL, EOM intact ENT: hearing intact, clear oral mucosa, dentition normal - Neck Neck: Present: supple, normal ROM - Respiratory Respiratory effort: normal Respiratory: bilateral: CTA - Cardiovascular Rhythm: regular Heart Sounds: Present: S1 & S2. Absent: gallop, rub - Extremities Extremities: no ischemia, No edema, Full ROM - Abdominal General gastrointestinal: soft, non-tender, non-distended, normal bowel sounds - Integumentary Integumentary: Present: clear, warm, dry - Neurologic Neurologic: CNII-XII intact, moves all extremities Results - Labs CBC & Chem 7: 01/21/18 09:09 01/21/18 09:09 Labs: Laboratory Last Values WBC 5.3 K/mm3 (4.5-11.0) 01/21/18 09:09 RBC 4.37 M/mm3 (3.65-5.03) 01/21/18 09:09 Hgb 13.8 gm/dl (11.8-15.2) 01/21/18 09:09 Hct 40.6 % (35.5-45.6) 01/21/18 09:09 MCV 93 fl (84-94) 01/21/18 09:09 MCH 32 pg (28-32) 01/21/18 09:09 MCHC 34 % (32-34) 01/21/18 09:09 RDW 13.5 % (13.2-15.2) 01/21/18 09:09 Plt Count 184 K/mm3 (140-440) 01/21/18 09:09 Lymph % (Auto) 18.2 % (13.4-35.0) 01/21/18 09:09 [place] % (Auto) 7.7 % (0.0-7.3) H 01/21/18 09:09 Eos % (Auto) 5.9 % (0.0-4.3) H 01/21/18 09:09 Baso % (Auto) 0.8 % (0.0-1.8) 01/21/18 09:09 Lymph # 1.0 K/mm3 (1.2-5.4) L 01/21/18 09:09 [place] # 0.4 K/mm3 (0.0-0.8) 01/21/18 09:09 Eos # 0.3 K/mm3 (0.0-0.4) 01/21/18 09:09 Baso # 0.0 K/mm3 (0.0-0.1) 01/21/18 09:09 Seg Neutrophils % 67.4 % (40.0-70.0) 01/21/18 09:09 Seg Neutrophils # 3.5 K/mm3 (1.8-7.7) 01/21/18 09:09 Sodium 143 mmol/L (137-145) D 01/21/18 09:09 Potassium 4.1 mmol/L (3.6-5.0) D 01/21/18 09:09 Chloride 95.1 mmol/L (98-107) L 01/21/18 09:09 Carbon Dioxide 29 mmol/L (22-30) 01/21/18 09:09 Anion Gap 23 mmol/L 01/21/18 09:09 BUN 30 mg/dL (9-20) H 01/21/18 09:09 Creatinine 7.1 mg/dL (0.8-1.5) H 01/21/18 09:09 Estimated GFR 8 ml/min 01/21/18 09:09 BUN/Creatinine Ratio 4 % 01/21/18 09:09 Glucose 169 mg/dL (75-100) H 01/21/18 09:09 Hemoglobin A1c 6.0 % (4-6) 01/20/18 00:19 Calcium 9.1 mg/dL (8.4-10.2) 01/21/18 09:09 Total Bilirubin 0.50 mg/dL (0.1-1.2) 01/21/18 09:09 AST 14 units/L (5-40) 01/21/18 09:09 ALT 11 units/L (7-56) 01/21/18 09:09 Alkaline Phosphatase 101 units/L (35-129) 01/21/18 09:09 Total Protein 8.0 g/dL (6.3-8.2) 01/21/18 09:09 Albumin 4.6 g/dL (3.9-5) 01/21/18 09:09 Albumin/Globulin Ratio 1.4 % 01/21/18 09:09
[2018-01-22] MEDS ORDERED: NACL 0.9 (PRIMING MACHINE ONLY DIALYSIS) MC ONE (13:22)
[2018-01-22] MEDS: NORVASC PO SCH (15:24)
[2018-01-22] MEDS: SODIUM CHLORIDE FLUSH SYRINGE 10 ML IV SCH ×2 (15:26→21:49)
[2018-01-22] MEDS: PRAVACHOL PO SCH (21:48)
[2018-01-23] MEDS: NORVASC PO SCH (09:48)
[2018-01-23] MEDS: HEPARIN SUB-Q SCH (09:50)
[2018-01-23] MEDS: SODIUM CHLORIDE FLUSH SYRINGE 10 ML IV SCH (09:50)
[2018-01-23 09:51] VITALS: BP 128/73
--- NOTE | 2018-01-23 09:59 | Progress Note ---
Assessment and Plan Impression: * ESRD * Accelerated hypertension * Type II diabetes mellitus * Anemia * hyperkalemia Plan: * HD MWF schedule * Epogen with dialysis * syncope may be due to hyperkalemia * uf as tolerated * renal diet * Serologic work up pending * Continue BP medications - BP control improved * Avoid nephrotoxins * Dose medications for renal function * ok to dc after hd from renal standpoint Subjective Date of service: 01/23/18 Principal diagnosis: esrd Interval history: resting well in bed today Objective - Exam Narrative Exam: GENERAL: The patient is well-developed well-nourished male lying on stretcher not appearing to be in acute distress. [] HEENT: Normocephalic. Atraumatic. Extraocular motions are intact. Patient has moist mucous membranes. No nystagmus NECK: Supple. Trachea midline CHEST/LUNGS: Clear to auscultation. There is no respiratory distress noted. HEART/CARDIOVASCULAR: Regular. There is no tachycardia. There is no gallop rub or murmur. ABDOMEN: Abdomen is soft, nontender. Patient has normal bowel sounds. There is no abdominal distention. SKIN: There is no rash. There is no edema. There is no diaphoresis. NEURO: The patient is awake, alert, and oriented. The patient is cooperative. The patient has no focal neurologic deficits. The patient has normal speech. Cranial nerves II through XII grossly intact, no drift MUSCULOSKELETAL: There is no evidence of acute injury. - Vital Signs Vital signs: Vital Signs - 12hr 01/23/18 01/23/18 01/23/18 00:12 04:55 08:22 Temperature 98.5 F 98.2 F 97.7 F Pulse Rate 83 80 79 Respiratory 18 Rate Blood Pressure 125/73 116/74 137/74 O2 Sat by Pulse 99 98 97 Oximetry 01/23/18 09:48 Temperature Pulse Rate 81 Respiratory Rate Blood Pressure 128/73 O2 Sat by Pulse Oximetry - Lab 01/21/18 09:09 01/21/18 09:09 Most recent lab results Calcium 9.1 mg/dL (8.4-10.2) 01/21/18 09:09
--- NOTE | 2018-01-23 10:47 | Discharge Summary ---
Providers - Providers Date of Admission: 01/19/18 23:59 Date of discharge: 01/23/18 Attending physician: STAN FISHMAN 01/19/18 23:59 Consult to Physician [CONS] Routine Comment: Dr. Rea spoke with Dr. Bah @ [id number] Consulting Provider: STONEY CALL Physician Instructions: Reason For Exam: ESRD/HyperKalemia 01/21/18 14:36 Physical Therapy Evaluation and Treat [CONS] Routine Comment: Reason For Exam: vestibular eval/rehab Primary care physician: POT TENDER Hospitalization Reason for admission: dizziness Condition: Stable Hospital course: The patient is a 52-year-old male presenting with a chief complaint of dizziness. The patient stated he was at dialysis and his blood pressure became low [employer]. The patient states he complained of some dizziness and nausea. While at dialysis, patient was given something to drink and a chocolate bar and his blood pressure normalized. The patient was asymptomatic so was discharged home. The patient states while at home began to feel dizzy once he stood up. Patient again reported dizziness and weakness. Patient denied any other complaints. Pt was admitted with dx of hyperkalemia and syncope. Pt was seen by Nephrology in consultation who suspects syncope may be due to hyperkalemia. Echo revealed EF 55% and mild diastolic dysfxn. Carotid dopplers negative. PT' s hyperkalemia resolved with HD. D/C time 32 min Disposition: DC-01 TO HOME OR SELFCARE Time spent for discharge: 32 - Discharge Diagnoses (1) Syncope Status: Acute (2) Hyperkalemia Status: Acute Core Measure Documentation - Palliative Care Palliative Care/ Comfort Measures: Not Applicable - Core Measures Any of the following diagnoses?: none Exam - Constitutional Vitals: Temp Pulse Resp BP Pulse Ox 97.7 F 81 18 128/73 97 01/23/18 08:22 01/23/18 09:48 01/23/18 08:22 01/23/18 09:48 01/23/18 08:22 General appearance: Present: no acute distress, well-nourished - EENT Eyes: Present: PERRL ENT: hearing intact, clear oral mucosa - Neck Neck: Present: supple, normal ROM - Respiratory Respiratory effort: normal Respiratory: bilateral: CTA - Cardiovascular Heart Sounds: Present: S1 & S2. Absent: rub, click - Extremities Extremities: pulses symmetrical, No edema Peripheral Pulses: within normal limits - Abdominal General gastrointestinal: Present: soft, non-tender, non-distended, normal bowel sounds Male genitourinary: Present: normal - Integumentary Integumentary: Present: clear, warm, dry - Musculoskeletal Musculoskeletal: gait normal, strength equal bilaterally - Psychiatric Psychiatric: appropriate mood/affect, intact judgment & insight - Neurologic Neurologic: CNII-XII intact, moves all extremities Plan Activity: no restrictions Weight Bearing Status: Full Weight Bearing Diet: diabetic, renal Follow up with: PRIMARY CARE, [Primary Care Provider] - 7 Days LOPEZ BAH MD [Staff Physician] - 7 Days
[2018-01-23 11:53] LABS: Calcium 8.5 mg/dL (8.4-10.2)
== END 2018-01-23 12:06 | disposition home or self-care (01) | DRG 640 ==
LOC: ED 20:52 → 4A 23:59
PROVIDERS: ADMIT Internal Medicine; ATTEND Hospitalist
PROC: 5A1D70Z Performance of Urinary Filtration, Intermittent, Less than 6 Hours Per Day (ICD-10-PCS; principal; 2018-01-20)
PROC: 5A1D70Z Performance of Urinary Filtration, Intermittent, Less than 6 Hours Per Day (ICD-10-PCS; 2018-01-22)
DX: E87.5 Hyperkalemia (principal); N18.6 End stage renal disease; I12.0 Hypertensive chronic kidney disease with stage 5 chronic kidney disease or end stage renal disease; I95.1 Orthostatic hypotension; E11.22 Type 2 diabetes mellitus with diabetic chronic kidney disease; D64.9 Anemia, unspecified; K21.9 Gastro-esophageal reflux disease without esophagitis; E78.5 Hyperlipidemia, unspecified; Z86.73 Personal history of transient ischemic attack (TIA), and cerebral infarction without residual deficits; Z79.899 Other long term (current) drug therapy; Z79.82 Long term (current) use of aspirin
CPT/HCPCS: 36415; 80048; 80053; 83036; 84132; 85025; 93005; 93010; 93306; 93880; A9270-GY; J0610; J1644; J3246; J7030; J7040

== ENCOUNTER 2021-11-15 10:11 | Emergency (ER) | payer MEDICARE ==
[2021-11-15 11:00] LABS: Basophils % (Auto) 0.7 % (0.0-1.8); Eosinophils # (Auto) 0.3 K/mm3 (0.0-0.4); Eosinophils % (Auto) 5.1 % (0.0-4.3); Hematocrit 36.4 % (35.5-45.6); Hemoglobin 12.7 gm/dl (11.8-15.2); Lymphocytes # (Auto) 1.1 K/mm3 (1.2-5.4); Lymphocytes % (Auto) 18.1 % (13.4-35.0); Mean Corpuscular HGB Conc 35 % (32-34); Mean Corpuscular Volume 95 fl (84-94); Monocytes # (Auto) 0.5 K/mm3 (0.0-0.8); Monocytes % (Auto) 7.6 % (0.0-7.3); Platelet Count 158 K/mm3 (140-440); Red Blood Count 3.82 M/mm3 (3.65-5.03); Red Cell Distribution Width 12.8 % (13.2-15.2)
[2021-11-15 11:11] LABS: Calcium 9.4 mg/dL (8.4-10.2)
--- NOTE | 2021-11-15 11:22 | Emergency Department Report ---
HPI - General Chief Complaint: Upper Respiratory Infection - HPI HPI: Room 2 The patient is a 56-year-old male present with a chief complaint of needing dialysis. Patient is currently being treated for active TB but normally receives dialysis every Monday. Patient last received hemodialysis 11/12/2021. Because of his active TB is a medium to receive dialysi s at [facility] was subsequently told to come to the ED to have dialysis arranged. The patient's food assembler commissary kitchen Dr. Delarosa called me prior to the patient's arrival to the ED. ED Past Medical Hx - Past Medical History Hx Hypertension: Yes Hx CVA: Yes Hx Congestive Heart Failure: No Hx Diabetes: Yes Hx GERD: Yes Hx Renal Disease: Yes (End-stage renal disease) Hx Asthma: No Hx COPD: No Hx HIV: No Additional medical history: Vertigo - Surgical History Past Surgical History?: Yes Additional Surgical History: Left upper extremity fistula - Social History Smoking Status: Never Smoker - Medications Home Medications: Home Medications Medication Instructions Recorded Confirmed Last Taken Type Simvastatin (Nf) [Zocor TAB] 20 mg PO QHS #30 tablet 02/28/17 01/20/18 06/05/17 Rx amLODIPine 10 mg PO QDAY #30 tablet 02/28/17 01/20/18 06/05/17 Rx Phenazopyridine [Pyridium] 200 mg PO TID #6 tab 04/11/18 Unknown Rx Acetaminophen [Acetaminophen TAB] 325 mg PO Q6H PRN tablet 04/10/20 Unknown Rx amLODIPine 10 mg PO QDAY #30 tablet 04/10/20 Unknown Rx dexAMETHasone [Decadron] 6 mg PO Q24HR #9 tablet 04/10/20 Unknown Rx hydrALAZINE [Apresoline TAB] 25 mg PO DAILY #30 tab 04/10/20 Unknown Rx traMADoL [Ultram 50 MG tab] 50 mg PO Q6H PRN #14 tablet 04/10/20 Unknown Rx ED Review of Systems ROS: Stated complaint: SENT BY DR/ACTIVE TB Other details as noted in HPI Physical Exam - Physical Exam Vital Signs: Vital Signs 11/15/21 10:15 Temperature 97.4 F L Pulse Rate 69 Respiratory 17 Rate Blood Pressure 179/77 O2 Sat by Pulse 98 Oximetry ED Course Vital Signs 11/15/21 10:15 Temperature 97.4 F L Pulse Rate 69 Respiratory 17 Rate Blood Pressure 179/77 O2 Sat by Pulse 98 Oximetry - Consultations Consultation #1: 11/15/21 11:21 Nephrology paged 11/15/21 11:27 Case discussed with food assembler commissary kitchen Dr. Chang-will arrange for hemodialysis ED Medical Decision Making - Lab Data Result diagrams: 11/15/21 10:44 11/15/21 10:44 Critical care attestation.: If time is entered above; I have spent that time in minutes in the direct care of this critically ill patient, excluding procedure time. ED Disposition Clinical Impression: ESRD needing dialysis, Hyperkalemia Disposition: ADMITTED INPATIENT Is pt being admited?: Yes Does the pt Need Aspirin: No Condition: Stable Time of Disposition: 11:28 (Care transferred to hospitalist (Dr. Burns))
[2021-11-15] MEDS ORDERED: CALCIUM GLUCONATE 1,000 MG in SODIUM CHLORIDE 0.9% 100 ML IV ONE (11:27)
--- NOTE | 2021-11-15 11:32 | History and Physical Report ---
History of Present Illness Chief complaint: I need dialysis History of present illness: 56 YO Male with ESRD on HD(M,W,F) last dialyzed on 11/12, CVA, DM, GERD, BPV, HTN currently undergoing treatment for active TB infection presents to ED for evaluation. Patient reports "I need dialysis". Patient reports that he was unable to undergo his routine scheduled outpatient dialysis due to current treatment for active TB infection. Patient transported to [facility] via private vehicle for further care and evaluation of the aforementioned symptoms. The patient was seen and evaluated in the emergency department. All lab and imaging studies reviewed. Patient found to have end-stage renal disease in need of dialysis, fluid overload, and hyperkalemia. Nephrology team consulted in ED for urgent dialysis. Patient has fever, chills, chest pain, palpitation, productive cough, skin rash and recent contact, known exposure to COVID-19. Prior admission on 04/08/2020 reviewed. All medication listed at time of admission has been reconciled. Advanced care planning conducted in ED. Past History Past Medical History: diabetes, GERD, hypertension, stroke, other (See HPI) Past Surgical History: Other (Dialysis access) Social history: . denies: smoking, alcohol abuse, prescription drug abuse Family history: diabetes, hypertension Medications and Allergies Allergies Allergy/AdvReac Type Severity Reaction Status Date / Time No Known Allergies Allergy Verified 04/11/18 12:39 Home Medications Medication Instructions Recorded Confirmed Last Taken Type Simvastatin (Nf) [Zocor TAB] 20 mg PO QHS #30 tablet 02/28/17 01/20/18 06/05/17 Rx amLODIPine 10 mg PO QDAY #30 tablet 02/28/17 01/20/18 06/05/17 Rx Phenazopyridine [Pyridium] 200 mg PO TID #6 tab 04/11/18 Unknown Rx Acetaminophen [Acetaminophen TAB] 325 mg PO Q6H PRN tablet 04/10/20 Unknown Rx amLODIPine 10 mg PO QDAY #30 tablet 04/10/20 Unknown Rx dexAMETHasone [Decadron] 6 mg PO Q24HR #9 tablet 04/10/20 Unknown Rx hydrALAZINE [Apresoline TAB] 25 mg PO DAILY #30 tab 04/10/20 Unknown Rx traMADoL [Ultram 50 MG tab] 50 mg PO Q6H PRN #14 tablet 04/10/20 Unknown Rx Active Meds: Active Medications CALC GLUCONATE 1GM/NS 100 ML (Calcium Gluonate/Ns 1,000mg/100ml) 1 gm in 100 mls @ 300 mls/hr IV ONCE ONE Stop: 11/15/21 12:49 Review of Systems Constitutional: no weight loss, no weight gain, no fever Ears, nose, mouth and throat: no ear pain, no tinnitis, no decreased hearing, no nose pain, no nasal congestion Cardiovascular: no chest pain, no palpitations, no edema, no lightheadedness Respiratory: no cough, no excessive sputum, no shortness of breath Gastrointestinal: no abdominal pain, no nausea, no diarrhea, no constipation Genitourinary Male: no hematuria, no flank pain, no discharge, no urinary frequency, no urinary hesitancy Rectal: no pain, no incontinence, no bleeding Musculoskeletal: no neck stiffness, no neck pain, no shooting arm pain, no low back pain, no shooting leg pain Integumentary: no rash, no pruritis, no sores Neurological: no head injury, no transient paralysis, no numbness, no seizures, no syncope, no tremors Psychiatric: no anxiety, no insomnia, no change in libido, no suicidal ideation, no disorientation, no hallucinations Endocrine: no cold intolerance, no heat intolerance, no polydipsia, no polyuria, no nocturia, no excessive sweating, no weight change Hematologic/Lymphatic: no easy bruising, no easy bleeding Allergic/Immunologic: no urticaria, no allergic rhinitis Exam - Constitutional Vitals: Temp Pulse Resp BP Pulse Ox 97.4 F L 69 17 179/77 98 11/15/21 10:15 11/15/21 10:15 11/15/21 10:15 11/15/21 10:15 11/15/21 10:15 General appearance: Present: mild distress - EENT Eyes: Present: PERRL ENT: hearing intact, clear oral mucosa - Neck Neck: Present: supple, normal ROM - Respiratory Respiratory effort: normal Respiratory: bilateral: CTA - Cardiovascular Heart Sounds: Present: S1 & S2. Absent: rub, click - Extremities Extremities: pulses symmetrical, No edema Peripheral Pulses: within normal limits - Abdominal General gastrointestinal: Present: soft, non-tender, non-distended, normal bowel sounds Male genitourinary: Present: normal - Integumentary Integumentary: Present: clear, warm, dry - Musculoskeletal Musculoskeletal: gait normal, strength equal bilaterally - Psychiatric Psychiatric: appropriate mood/affect, intact judgment & insight - Neurologic Neurologic: CNII-XII intact, moves all extremities Results - Labs CBC & Chem 7: 11/15/21 10:44 11/15/21 10:44 Labs: Abnormal lab results 11/15/21 11/15/21 Range/Units 10:44 10:44 MCV 95 H (84-94) fl MCH 33 H (28-32) pg MCHC 35 H (32-34) % RDW 12.8 L (13.2-15.2) % Dubois % (Auto) 7.6 H (0.0-7.3) % Eos % (Auto) 5.1 H (0.0-4.3) % Lymph # (Auto) 1.1 L (1.2-5.4) K/mm3 Potassium 6.1 H* (3.6-5.0) mmol/L BUN 98 H (9-20) mg/dL Creatinine 12.3 H (0.8-1.3) mg/dL Glucose 104 H (75-100) mg/dL Assessment and Plan - Patient Problems (1) End stage renal disease Current Visit: Yes Status: Acute Plan to address problem: Nephrology team consulted in ED, dialysis as per renal team, strict I's/O, monitor fluid balance, avoid nephrotoxic agents. (2) Fluid overload Current Visit: Yes Status: Acute Qualifiers: Hypervolemia type: unspecified Qualified Code(s): E87.70 - Fluid overload, unspecified Plan to address problem: Dialysis as per renal team, strict I's/O, monitor fluid balance. (3) Hyperkalemia Current Visit: Yes Status: Acute Plan to address problem: Urgent dialysis, no EKG changes. Calcium gluconate (4) Diabetes Current Visit: Yes Status: Acute Plan to address problem: Consistent carbohydrate diet, Accu-Chek, insulin protocol, hypoglycemia protocol (5) GERD (gastroesophageal reflux disease) Current Visit: Yes Status: Acute Qualifiers: Esophagitis presence: without esophagitis Qualified Code(s): K21.9 - Gastro-esophageal reflux disease without esophagitis Plan to address problem: PPI therapy, supportive care. (6) Active tuberculosis Current Visit: Yes Status: Acute Plan to address problem: Continue medical management. Outpatient infectious disease follow-up. (7) DVT prophylaxis Current Visit: Yes Status: Acute Plan to address problem: SCD to bilateral lower extremities while in bed (8) Advance care planning Current Visit: Yes Status: Acute Plan to address problem: Disease education conducted, care plan discussed, diagnoses discussed, prognosis discussed, patient is full code. Patient knowledges understanding and agreement with care plan, +30 minutes. (9) Preventative health care Current Visit: Yes Status: Acute Plan to address problem: Patient counseled regarding compliance with renal diet, compliant with outpatient dialysis, follow-up with primary care physician as outpatient for all age and risk factor appropriate screening tests. +30 minutes.
[2021-11-15] MEDS ORDERED: HYDROmorphone 0.5 MG/0.5 ML INJ IV PRN (11:40)
[2021-11-15] MEDS ORDERED: ALBUTEROL 2.5 MG/3 ML NEBU IH PRN (11:40)
[2021-11-15] MEDS ORDERED: ACETAMINOPHEN 325 MG TAB PO PRN (11:40)
[2021-11-15] MEDS ORDERED: ONDANSETRON 4 MG/2 ML INJ IV PRN (11:40)
[2021-11-15] MEDS ORDERED: oxyCODONE /ACETAMINOPHEN 5-325MG TAB PO PRN (11:40)
[2021-11-15] MEDS ORDERED: traMADol 50 MG TAB PO PRN (11:42)
[2021-11-15] MEDS: CALC GLUCONATE 1GM/NS 100 ML 1 GM/100 ML BAG IV ONE ×2 (11:55→13:30)
[2021-11-15] MEDS ORDERED: SODIUM CHLORIDE 0.9% 100 ML IV PRN (12:16)
[2021-11-15] MEDS ORDERED: HEPARIN 10,000 UNITS/10 ML VIAL IV PRN ×2 (12:16→12:18)
[2021-11-15 13:38] LABS: Hepatitis B Surface Antigen Non-Reactive (Negative); Hepatitis C Virus Antibody Non-Reactive (NonReactive)
[2021-11-15] MEDS ORDERED: PHENAZOPYRIDINE 200 MG TAB PO SCH (14:00)
--- NOTE | 2021-11-15 20:57 | Event Note ---
Patient follows with [facility] for ESRD, has been on chronic HD. In outpatient setting, patient underwent bronchoscopy at [facility] on 09/28/2021 for nodules noted on Lung CT (part of transplant evaluation). AFB cultures returned positive on 11/12/2021- final suscepibilites are pending. In discussions with [facility] Clinical Care Team, Health Department, and other providers, patient unable to come currently for outpatient dialysis for active TB consideration. To start therapy soon per report. In order for patient to return to outpatient HD, per clinical guidelines, p atient must have 1 week of therapy for TB and 3 consecutive sputum samples showing no active disease. In interim, patient will have to come to hospital of his choice for dialysis when needed.
[2021-11-15] MEDS ORDERED: NON-FORMULARY EACH (Simvastatin 20 MG Tablet) PO SCH (22:00)
[2021-11-15] MEDS ORDERED: PRAVASTATIN 40 MG TAB PO SCH (22:00)
[2021-11-16 00:05] VITALS: BP 136/74
[2021-11-16] MEDS ORDERED: hydrALAZINE 25 MG TAB PO SCH (10:00)
[2021-11-16] MEDS ORDERED: DEXAMETHASONE 4 MG TAB PO SCH (10:00)
[2021-11-16] MEDS ORDERED: amLODIPine 10 MG TAB PO SCH (10:00)
== END 2021-11-16 00:48 | disposition admitted as inpatient to this hospital (09) ==
LOC: ED 10:11
DX: E11.22 Type 2 diabetes mellitus with diabetic chronic kidney disease (principal); I12.9 Hypertensive chronic kidney disease with stage 1 through stage 4 chronic kidney disease, or unspecified chronic kidney disease; N18.6 End stage renal disease; E87.6 Hypokalemia
CPT/HCPCS: 36415; 80048; 80074; 85025; 96365; 96366; 99283; J0610

== ENCOUNTER 2021-11-19 10:11 | Inpatient (IN) | payer MEDICARE ==
[2021-11-19 11:15] LABS: Basophils % (Auto) 0.8 % (0.0-1.8); Eosinophils # (Auto) 0.3 K/mm3 (0.0-0.4); Eosinophils % (Auto) 5.7 % (0.0-4.3); Hematocrit 35.6 % (35.5-45.6); Lymphocytes % (Auto) 18.1 % (13.4-35.0); Mean Corpuscular HGB Conc 34 % (32-34); Mean Corpuscular Volume 95 fl (84-94); Monocytes # (Auto) 0.4 K/mm3 (0.0-0.8); Monocytes % (Auto) 7.7 % (0.0-7.3); Platelet Count 145 K/mm3 (140-440); Red Blood Count 3.76 M/mm3 (3.65-5.03); Red Cell Distribution Width 12.6 % (13.2-15.2)
[2021-11-19 11:32] LABS: Calcium 9.8 mg/dL (8.4-10.2)
--- NOTE | 2021-11-19 13:54 | Emergency Department Report ---
ED General Adult HPI - General Chief complaint: Weakness Stated complaint: DIALYSIS Time Seen by Provider: 11/19/21 12:36 Source: patient Mode of arrival: Ambulatory Limitations: No Limitations - History of Present Illness Initial comments: 56-year-old male with end-stage renal disease on dialysis and with recent diagnosis of active tuberculosis presents to the hospital with complaints of needing dialysis. Patient was recently discharged from the hospital on November 15 and he is unable to return to his dialysis center until he completes 1 week of TB treatment and has 3 negative AFB sputum samples (as per Dr. Delarosa's note in medical record). Patient denies any current symptoms. Today will be day 3 of his TB treatment. - Related Data Previous Rx's Medication Instructions Recorded Last Taken Type Simvastatin (Nf) [Zocor TAB] 20 mg PO QHS #30 tablet 02/28/17 06/05/17 Rx amLODIPine 10 mg PO QDAY #30 tablet 02/28/17 06/05/17 Rx Phenazopyridine [Pyridium] 200 mg PO TID #6 tab 04/11/18 Unknown Rx Acetaminophen [Acetaminophen TAB] 325 mg PO Q6H PRN tablet 04/10/20 Unknown Rx amLODIPine 10 mg PO QDAY #30 tablet 04/10/20 Unknown Rx dexAMETHasone [Decadron] 6 mg PO Q24HR #9 tablet 04/10/20 Unknown Rx hydrALAZINE [Apresoline TAB] 25 mg PO DAILY #30 tab 04/10/20 Unknown Rx traMADoL [Ultram 50 MG tab] 50 mg PO Q6H PRN #14 tablet 04/10/20 Unknown Rx Allergies Allergy/AdvReac Type Severity Reaction Status Date / Time No Known Allergies Allergy Verified 04/11/18 12:39 ED Review of Systems ROS: Stated complaint: DIALYSIS Other details as noted in HPI Comment: All other systems reviewed and negative ED Past Medical Hx - Past Medical History Hx Hypertension: Yes Hx CVA: Yes Hx Congestive Heart Failure: No Hx Diabetes: Yes Hx GERD: Yes Hx Renal Disease: Yes (End-stage renal disease) Hx Asthma: No Hx COPD: No Hx HIV: No Additional medical history: Vertigo - Surgical History Additional Surgical History: Left upper extremity fistula - Social History Smoking Status: Never Smoker - Medications Home Medications: Home Medications Medication Instructions Recorded Confirmed Last Taken Type Simvastatin (Nf) [Zocor TAB] 20 mg PO QHS #30 tablet 02/28/17 01/20/18 06/05/17 Rx amLODIPine 10 mg PO QDAY #30 tablet 02/28/17 01/20/18 06/05/17 Rx Phenazopyridine [Pyridium] 200 mg PO TID #6 tab 04/11/18 Unknown Rx Acetaminophen [Acetaminophen TAB] 325 mg PO Q6H PRN tablet 04/10/20 Unknown Rx amLODIPine 10 mg PO QDAY #30 tablet 04/10/20 Unknown Rx dexAMETHasone [Decadron] 6 mg PO Q24HR #9 tablet 04/10/20 Unknown Rx hydrALAZINE [Apresoline TAB] 25 mg PO DAILY #30 tab 04/10/20 Unknown Rx traMADoL [Ultram 50 MG tab] 50 mg PO Q6H PRN #14 tablet 04/10/20 Unknown Rx ED Physical Exam - General Limitations: No Limitations - Other Other exam information: General: No acute distress Head: Atraumatic Eyes: normal appearance ENT: Moist mucous membranes Neck: Normal appearance, no midline tenderness Chest: Clear to auscultation bilaterally CV: Regular rate and rhythm Abdomen: Soft, normal bowel sounds, nontender, nondistended, no rebound or guarding Back: Normal inspection Extremity: Normal inspection, full range of motion Neuro: Alert O x 3, no facial asymmetry, speech clear, no gross motor sensory deficit Psych: Appropriate behavior Skin: No rash ED Course Vital Signs 11/19/21 10:28 Temperature 98.2 F Pulse Rate 81 Respiratory 16 Rate Blood Pressure 165/77 [Left] O2 Sat by Pulse 97 Oximetry - Consultations Consultation #1: 11/19/21 13:[address] Delarosa on-call cutting inspector for [facility]. Will place dialysis orders. Alysis will likely need to be done at the bedside in negative pressure room 11/19/21 14:08 [place] called back, THere is only one dialysis nurse and therefore if stable pt will be encouraged to come back tomorrow. [place] will come to bedside to discuss treatment options with patient. Dr Burns aware and admission placed on hold at this time. ED Medical Decision Making - Lab Data Result diagrams: 11/19/21 10:49 11/19/21 10:49 Lab Results 11/19/21 11/19/21 Range/Units 10:49 10:49 WBC 5.7 (4.5-11.0) K/mm3 RBC 3.76 (3.65-5.03) M/mm3 Hgb 12.0 (11.8-15.2) gm/dl Hct 35.6 (35.5-45.6) % MCV 95 H (84-94) fl MCH 32 (28-32) pg MCHC 34 (32-34) % RDW 12.6 L (13.2-15.2) % Plt Count 145 (140-440) K/mm3 Lymph % (Auto) 18.1 (13.4-35.0) % Wilkes % (Auto) 7.7 H (0.0-7.3) % Eos % (Auto) 5.7 H (0.0-4.3) % Baso % (Auto) 0.8 (0.0-1.8) % Lymph # (Auto) 1.0 L (1.2-5.4) K/mm3 Wilkes # (Auto) 0.4 (0.0-0.8) K/mm3 Eos # (Auto) 0.3 (0.0-0.4) K/mm3 Baso # (Auto) 0.0 (0.0-0.1) K/mm3 Seg Neutrophils % 67.7 (40.0-70.0) % Seg Neutrophils # 3.8 (1.8-7.7) K/mm3 Sodium 139 (137-145) mmol/L Potassium 5.4 H (3.6-5.0) mmol/L Chloride 96.9 L (98-107) mmol/L Carbon Dioxide 21 L (22-30) mmol/L Anion Gap 27 mmol/L BUN 123 H (9-20) mg/dL Creatinine 15.0 H (0.8-1.3) mg/dL Estimated GFR 3 ml/min BUN/Creatinine Ratio 8 % Glucose 111 H (75-100) mg/dL Calcium 9.8 (8.4-10.2) mg/dL - Medical Decision Making 56-year-old male currently being treated for tuberculosis presents to the hospital for dialysis. Patient is asymptomatic. Patient does have an elevated BUN and potassium meeting criteria for emergent dialysis. Case discussed with Dr. Delarosa who will place dialysis orders. In the ED patient was placed in respiratory isolation in a negative pressure room Critical Care Time: No Critical care attestation.: If time is entered above; I have spent that time in minutes in the direct care of this critically ill patient, excluding procedure time. ED Disposition Clinical Impression: ESRD needing dialysis, Active tuberculosis Disposition: 09 ADMITTED INPATIENT Is pt being admited?: Yes Condition: Stable Time of Disposition: 13:47
--- NOTE | 2021-11-19 14:05 | History and Physical Report ---
History of Present Illness Chief complaint: I need dialysis History of present illness: 56 YO Male with ESRD on HD(M,W,F) last dialyzed on 11/15, CVA, DM, GERD, BPV, HTN currently undergoing treatment for TB infection presents to ED for evaluation. Patient reports "I need dialysis". Patient reports that he was unable to undergo his routine scheduled outpatient dialysis session due to current active TB infection. Patient transported to [facility] via private vehicle for further care and evaluation of the aforementioned symptoms. The patient was seen and evaluated in the emergency department. All lab and imaging studies reviewed. Patient found to have end-stage renal disease in need of dialysis, fluid overload, and hyperkalemia. Nephrology team consulted in ED for urgent dialysis. Patient has fever, chills, chest pain, palpitation, productive cough, skin rash and recent contact, known exposure to COVID-19. Prior admission on 11/15/21 reviewed. All medication listed at time of admission has been reconciled. Advanced care planning conducted in ED. Past History Past Medical History: diabetes, GERD, hypertension, stroke Past Surgical History: Other (Dialysis access) Social history: , lives with family. denies: smoking, alcohol abuse, prescription drug abuse Family history: hypertension Medications and Allergies Allergies Allergy/AdvReac Type Severity Reaction Status Date / Time No Known Allergies Allergy Verified 04/11/18 12:39 Home Medications Medication Instructions Recorded Confirmed Last Taken Type Simvastatin (Nf) [Zocor TAB] 20 mg PO QHS #30 tablet 02/28/17 01/20/18 06/05/17 Rx amLODIPine 10 mg PO QDAY #30 tablet 02/28/17 01/20/18 06/05/17 Rx Phenazopyridine [Pyridium] 200 mg PO TID #6 tab 04/11/18 Unknown Rx Acetaminophen [Acetaminophen TAB] 325 mg PO Q6H PRN tablet 04/10/20 Unknown Rx amLODIPine 10 mg PO QDAY #30 tablet 04/10/20 Unknown Rx dexAMETHasone [Decadron] 6 mg PO Q24HR #9 tablet 04/10/20 Unknown Rx hydrALAZINE [Apresoline TAB] 25 mg PO DAILY #30 tab 04/10/20 Unknown Rx traMADoL [Ultram 50 MG tab] 50 mg PO Q6H PRN #14 tablet 04/10/20 Unknown Rx Review of Systems Constitutional: no weight loss, no weight gain, no fever, no chills Ears, nose, mouth and throat: no ear pain, no tinnitis, no decreased hearing Cardiovascular: no chest pain, no palpitations, no rapid/irregular heart beat, no edema, no syncope Respiratory: no cough, no cough with sputum Gastrointestinal: no nausea, no vomiting, no constipation, no change in bowel habits Genitourinary Male: no hematuria, no flank pain, no discharge, no urinary frequency, no urinary hesitancy Rectal: no pain, no incontinence, no bleeding Musculoskeletal: no shooting arm pain, no shooting leg pain, no leg numbness/tingling Integumentary: no rash, no pruritis, no redness Neurological: no head injury, no transient paralysis, no numbness, no seizures, no syncope, no tremors Psychiatric: no anxiety, no change in sleep habits, no insomnia, no hypersomnia, no change in appetite, no suicidal ideation, no disorientation Endocrine: no heat intolerance, no excessive thirst, no polyuria, no nocturia, no flushing Hematologic/Lymphatic: no easy bruising, no easy bleeding, no lymphadenopathy Allergic/Immunologic: no urticaria, no persistent infections Exam - Constitutional Vitals: Temp Pulse Resp BP Pulse Ox 98.2 F 81 16 165/77 97 11/19/21 10:28 11/19/21 10:28 11/19/21 10:28 11/19/21 10:28 11/19/21 10:28 General appearance: Present: no acute distress, well-nourished - EENT Eyes: Present: PERRL ENT: hearing intact, clear oral mucosa - Neck Neck: Present: supple, normal ROM - Respiratory Respiratory effort: normal Respiratory: bilateral: CTA - Cardiovascular Heart Sounds: Present: S1 & S2. Absent: rub, click - Extremities Extremities: pulses symmetrical, No edema Peripheral Pulses: within normal limits - Abdominal General gastrointestinal: Present: soft, non-tender, non-distended, normal bowel sounds Male genitourinary: Present: normal - Integumentary Integumentary: Present: clear, warm, dry - Musculoskeletal Musculoskeletal: gait normal, strength equal bilaterally - Psychiatric Psychiatric: appropriate mood/affect, intact judgment & insight - Neurologic Neurologic: CNII-XII intact, moves all extremities Results - Labs CBC & Chem 7: 11/19/21 10:49 11/19/21 10:49 Labs: Abnormal lab results 11/19/21 11/19/21 Range/Units 10:49 10:49 MCV 95 H (84-94) fl RDW 12.6 L (13.2-15.2) % Wagoner % (Auto) 7.7 H (0.0-7.3) % Eos % (Auto) 5.7 H (0.0-4.3) % Lymph # (Auto) 1.0 L (1.2-5.4) K/mm3 Potassium 5.4 H (3.6-5.0) mmol/L Chloride 96.9 L (98-107) mmol/L Carbon Dioxide 21 L (22-30) mmol/L BUN 123 H (9-20) mg/dL Creatinine 15.0 H (0.8-1.3) mg/dL Glucose 111 H (75-100) mg/dL Assessment and Plan - Patient Problems (1) ESRD needing dialysis Current Visit: Yes Status: Chronic Plan to address problem: Nephrology team consulted in ED, strict I's/O, monitor fluid balance, dialysis as per renal team. (2) Fluid overload Current Visit: Yes Status: Acute Qualifiers: Hypervolemia type: unspecified Qualified Code(s): E87.70 - Fluid overload, unspecified Plan to address problem: Strict I's/O, monitor fluid balance, dialysis as per renal team. (3) Metabolic acidosis Current Visit: Yes Status: Acute Plan to address problem: BMP, urgent dialysis, repeat BMP in AM. No EKG changes. (4) DVT prophylaxis Current Visit: Yes Status: Acute Plan to address problem: SCD to bilateral lower extremities while in bed, patient is ambulatory. (5) Advance care planning Current Visit: Yes Status: Acute Plan to address problem: Disease education done, care plan discussed, diagnoses discussed, prognosis discussed, patient is full code, +30 minutes. (6) Preventative health care Current Visit: Yes Status: Acute Plan to address problem: Compliance with outpatient dialysis, renal diet, outpatient follow-up with primary care physician for all age and risk factor appropriate screening test. +30 minutes. (7) Active tuberculosis Current Visit: Yes Status: Acute Plan to address problem: Continue medical management. Outpatient infectious disease follow-up.
[2021-11-19] MEDS ORDERED: SODIUM CHLORIDE 0.9% 100 ML IV PRN (15:13)
[2021-11-19] MEDS ORDERED: ONDANSETRON 4 MG/2 ML INJ IV PRN (18:22)
[2021-11-19] MEDS ORDERED: ALBUTEROL 2.5 MG/3 ML NEBU IH PRN (18:22)
[2021-11-19] MEDS ORDERED: oxyCODONE /ACETAMINOPHEN 5-325MG TAB PO PRN (18:22)
[2021-11-19] MEDS ORDERED: HYDROmorphone 0.5 MG/0.5 ML INJ IV PRN (18:22)
[2021-11-19] MEDS ORDERED: ACETAMINOPHEN 325 MG TAB PO PRN (18:22)
[2021-11-19] MEDS ORDERED: traMADol 50 MG TAB PO PRN (18:40)
--- NOTE | 2021-11-19 18:48 | Consultation ---
History of Present Illness - Reason for Consult Consult date: 11/19/21 - History of Present Illness This is a 56 year-old man with ESRD who presents for need for HD Patient usually dialyzes MWF at [facility]. Denies any recent issues with HD, including dizziness, lightheadedness, cramping, chest pain on HD. Currently, patient denies any issues including dyspnea, edema, access issues, na usea, vomiting, headaches. Patient is currently unable to go to outpatient HD as he was found to have TB on bronchoscopy at [facility] in September 2021, AF[employer] cultures returned in late October. Currently he states he is on 3rd day of treatment. Past History Past Medical History: diabetes, ESRD, GERD, hypertension, stroke Past Surgical History: Other (Dialysis access) Social history: , lives with family. denies: smoking, alcohol abuse, prescription drug abuse Family history: hypertension Medications and Allergies Allergies Allergy/AdvReac Type Severity Reaction Status Date / Time No Known Allergies Allergy Verified 04/11/18 12:39 Home Medications Medication Instructions Recorded Confirmed Last Taken Type Simvastatin (Nf) [Zocor TAB] 20 mg PO QHS #30 tablet 02/28/17 01/20/18 06/05/17 Rx amLODIPine 10 mg PO QDAY #30 tablet 02/28/17 01/20/18 06/05/17 Rx Phenazopyridine [Pyridium] 200 mg PO TID #6 tab 04/11/18 Unknown Rx Acetaminophen [Acetaminophen TAB] 325 mg PO Q6H PRN tablet 04/10/20 Unknown Rx amLODIPine 10 mg PO QDAY #30 tablet 04/10/20 Unknown Rx dexAMETHasone [Decadron] 6 mg PO Q24HR #9 tablet 04/10/20 Unknown Rx hydrALAZINE [Apresoline TAB] 25 mg PO DAILY #30 tab 04/10/20 Unknown Rx traMADoL [Ultram 50 MG tab] 50 mg PO Q6H PRN #14 tablet 04/10/20 Unknown Rx Active Meds: Active Medications Acetaminophen (Acetaminophen 325 Mg Tab) 650 mg PO Q4H PRN PRN Reason: Pain MILD(1-3)/Fever >100.5/GARCIA Albuterol (Albuterol 2.5 Mg/3 Ml Nebu) 2.5 mg IH Q4HRT PRN PRN Reason: Shortness Of Breath Amlodipine Besylate (Amlodipine 10 Mg Tab) 10 mg PO QDAY DAVEY Dexamethasone (Dexamethasone 4 Mg Tab) 6 mg PO Q24HR DAVEY Hydralazine HCl (Hydralazine 25 Mg Tab) 25 mg PO DAILY DAVEY Hydromorphone HCl (Hydromorphone 0.5 Mg/0.5 Ml Inj) 0.5 mg IV Q23H PRN PRN Reason: Pain , Severe (7-10) Sodium Chloride (Nacl 0.9%) 100 mls @ 999 mls/hr IV NORMA PRN PRN Reason: Hypotension Miscellaneous Medication (Simvastatin) 20 mg PO QHS DAVEY Ondansetron HCl (Ondansetron 4 Mg/2 Ml Inj) 4 mg IV Q8H PRN PRN Reason: Nausea And Vomiting Oxycodone/Acetaminophen (Oxycodone /Acetaminophen 5-325mg Tab) 1 tab PO Q16H PRN PRN Reason: Pain, Moderate (4-6) Phenazopyridine HCl (Phenazopyridine 200 Mg Tab) 200 mg PO TID DAVEY Sodium Chloride (Sodium Chloride 0.9% 10 Ml Flush Syringe) 10 ml IV BID DAVEY Sodium Chloride (Sodium Chloride 0.9% 10 Ml Flush Syringe) 10 ml IV PRN PRN PRN Reason: LINE FLUSH Tramadol HCl (Tramadol 50 Mg Tab) 50 mg PO Q6H PRN PRN Reason: Pain, Moderate (4-6) Review of Systems All systems: negative (as per HPI) Exam - Vital Signs Vital signs: Vital Signs Temp Pulse Resp BP Pulse Ox 98.2 F 81 16 165/77 97 11/19/21 10:28 11/19/21 10:28 11/19/21 10:28 11/19/21 10:28 11/19/21 10:28 - Physical Exam Narrative exam: Constitutional: no acute distress Head: NC/AT Neck: supple Lungs: clear to auscultation CV: RRR, no M/R/G Abdomen: soft, non-tender, bowel sounds present Back: nontender Extremities: no edema, pulses WNL Skin: intact Neuro: no focal deficits, alert and oriented x4 Results - Lab Results 11/19/21 10:49 11/19/21 10:49 Most recent lab results Calcium 9.8 mg/dL (8.4-10.2) 11/19/21 10:49 Assessment and Plan This is a 56 year old who presents with need for HD # ESRD: plan for HD today for azotemia/toxin removal, volume management. Note BUN>100, K 5.4. Unfortunately, only one dialysis nurse today so likely to be delayed. Did discuss with patient that may not get dialysis today as not emergent, he is understanding due to nature of his TB diagnosis. For patient to return to HD center, needs to have 1 week of antimycobacterial therapy with 3 consecutive negative sputum cultures. Suspect if this is done appropriately, neli y be able to return to outpatient HD by the week of November 29, but in meantime, he will have to come to ED of his choice for HD due to need for isolation - daily labs - renally dose meds - avoid nephrotoxins - renal diet - verbal consent obtained for HD # Anemia: last hemoglobin at goal, no indication for CHAITANYA # HTN: UF as tolerated. BP high, will need to continue home antihypertensives # Secondary Hyperparathyroidism: continue home binders as needed, vitamin D analogs prn
[2021-11-19] MEDS ORDERED: PHENAZOPYRIDINE 200 MG TAB PO SCH (20:00)
[2021-11-19] MEDS ORDERED: PRAVASTATIN 40 MG TAB PO SCH (22:00)
[2021-11-19] MEDS ORDERED: NON-FORMULARY EACH (Simvastatin 20 MG Tablet) PO SCH (22:00)
[2021-11-20 00:42] VITALS: BP 159/78
[2021-11-20] MEDS ORDERED: hydrALAZINE 25 MG TAB PO SCH (10:00)
[2021-11-20] MEDS ORDERED: DEXAMETHASONE 4 MG TAB PO SCH (10:00)
[2021-11-20] MEDS ORDERED: amLODIPine 10 MG TAB PO SCH (10:00)
== END 2021-11-20 00:20 | disposition home or self-care (01) | DRG 640 ==
LOC: ED 10:11 → 3A 18:22
PROVIDERS: ADMIT Internal Medicine; ATTEND Internal Medicine
PROC: 5A1D70Z Performance of Urinary Filtration, Intermittent, Less than 6 Hours Per Day (ICD-10-PCS; principal; 2021-11-19)
PROC: 5A1D70Z Performance of Urinary Filtration, Intermittent, Less than 6 Hours Per Day (ICD-10-PCS; 2021-11-20)
DX: E87.70 Fluid overload, unspecified (principal); N18.6 End stage renal disease; I12.0 Hypertensive chronic kidney disease with stage 5 chronic kidney disease or end stage renal disease; A15.9 Respiratory tuberculosis unspecified; N25.81 Secondary hyperparathyroidism of renal origin; E87.2 Acidosis; E11.22 Type 2 diabetes mellitus with diabetic chronic kidney disease; Z99.2 Dependence on renal dialysis; K21.9 Gastro-esophageal reflux disease without esophagitis; D64.9 Anemia, unspecified; Z86.73 Personal history of transient ischemic attack (TIA), and cerebral infarction without residual deficits; Z82.49 Family history of ischemic heart disease and other diseases of the circulatory system
CPT/HCPCS: 36415; 80048; 85025; G0378; J3490

== ENCOUNTER 2021-11-22 06:43 | Emergency (ER) | payer MEDICARE ==
--- NOTE | 2021-11-22 10:34 | Emergency Department Report ---
ED General Adult HPI - General Chief complaint: Medical Clearance Stated complaint: HERE FOR HD, HAS ACTIVE TB Time Seen by Provider: 11/22/21 08:17 Source: patient Mode of arrival: Ambulatory Limitations: Language Barrier - History of Present Illness Initial comments: 56-year-old male with a history of end-stage renal disease currently on dialysis that usually come to the emergency room for this procedure now present today wanted to be dialyzed. Patient denies any other modifying or associated symptoms. Patient has history of active tuberculosis and that was the reason why he cannot be accommodated at dialysis center. - Related Data Previous Rx's Medication Instructions Recorded Last Taken Type Simvastatin (Nf) [Zocor TAB] 20 mg PO QHS #30 tablet 02/28/17 06/05/17 Rx amLODIPine 10 mg PO QDAY #30 tablet 02/28/17 06/05/17 Rx Phenazopyridine [Pyridium] 200 mg PO TID #6 tab 04/11/18 Unknown Rx Acetaminophen [Acetaminophen TAB] 325 mg PO Q6H PRN tablet 04/10/20 Unknown Rx amLODIPine 10 mg PO QDAY #30 tablet 04/10/20 Unknown Rx dexAMETHasone [Decadron] 6 mg PO Q24HR #9 tablet 04/10/20 Unknown Rx hydrALAZINE [Apresoline TAB] 25 mg PO DAILY #30 tab 04/10/20 Unknown Rx traMADoL [Ultram 50 MG tab] 50 mg PO Q6H PRN #14 tablet 04/10/20 Unknown Rx Allergies Allergy/AdvReac Type Severity Reaction Status Date / Time No Known Allergies Allergy Verified 04/11/18 12:39 ED Review of Systems ROS: Stated complaint: HERE FOR HD, HAS ACTIVE TB Other details as noted in HPI Comment: All other systems reviewed and negative Genitourinary: other (End-stage renal disease on dialysis) ED Past Medical Hx - Past Medical History Previous Medical History?: Yes Hx Hypertension: Yes Hx CVA: Yes Hx Congestive Heart Failure: No Hx Diabetes: Yes Hx GERD: Yes Hx Renal Disease: Yes (End-stage renal disease) Hx Asthma: No Hx COPD: No Hx HIV: No Additional medical history: Vertigo - Surgical History Past Surgical History?: Yes Additional Surgical History: Left upper extremity fistula - Social History Smoking Status: Never Smoker Substance Use Type: None - Medications Home Medications: Home Medications Medication Instructions Recorded Confirmed Last Taken Type Simvastatin (Nf) [Zocor TAB] 20 mg PO QHS #30 tablet 02/28/17 01/20/18 06/05/17 Rx amLODIPine 10 mg PO QDAY #30 tablet 02/28/17 01/20/18 06/05/17 Rx Phenazopyridine [Pyridium] 200 mg PO TID #6 tab 04/11/18 Unknown Rx Acetaminophen [Acetaminophen TAB] 325 mg PO Q6H PRN tablet 04/10/20 Unknown Rx amLODIPine 10 mg PO QDAY #30 tablet 04/10/20 Unknown Rx dexAMETHasone [Decadron] 6 mg PO Q24HR #9 tablet 04/10/20 Unknown Rx hydrALAZINE [Apresoline TAB] 25 mg PO DAILY #30 tab 04/10/20 Unknown Rx traMADoL [Ultram 50 MG tab] 50 mg PO Q6H PRN #14 tablet 04/10/20 Unknown Rx ED Physical Exam - General Limitations: Language Barrier General appearance: alert, in no apparent distress - Head Head exam: Present: normal inspection - Eye Eye exam: Present: normal appearance Pupils: Present: normal accommodation - ENT ENT exam: Present: normal exam, normal orophraynx - Neck Neck exam: Present: normal inspection, full ROM. Absent: tenderness - Respiratory Respiratory exam: Present: normal lung sounds bilaterally. Absent: respiratory distress, accessory muscle use - Cardiovascular Cardiovascular Exam: Present: regular rate, normal rhythm, normal heart sounds - GI/Abdominal GI/Abdominal exam: Present: soft, normal bowel sounds. Absent: tenderness - Extremities Exam Extremities exam: Present: normal inspection. Absent: pedal edema - Back Exam Back exam: Absent: tenderness - Neurological Exam Neurological exam: Present: alert, oriented X3 - Psychiatric Psychiatric exam: Present: normal affect, normal mood - Skin Skin exam: Present: warm, dry ED Course Vital Signs 11/22/21 09:07 Temperature 97.8 F Pulse Rate 74 Respiratory 18 Rate Blood Pressure 154/86 [Right] O2 Sat by Pulse 97 Oximetry - Reevaluation(s) Reevaluation #1: 11/22/21 12:46 Patient according to the nephrology will be dialyzed in the emergency room and discharged home by the hospitalist Dr. Rosado - Consultations Consultation #1: 11/22/21 12:47 Dr. Rosado Consultation #2: 11/22/21 12:47 Dr. Armand ED Medical Decision Making - Lab Data Result diagrams: 11/22/21 10:59 11/22/21 10:59 - Medical Decision Making Patient with end-stage renal disease-with active TB--we will go ahead and get routine labs including CBC and CMP--and consider dialysis after review if necessary. Lab reviewed and noted elevated BUN and creatinine at 108/15.5 with potassium of 5.1--an indication for dialysis. Patient also noted with H&H slightly lower than his baseline 11.0/32.7 mmHg--likely as a result of CKD.--We will consult with hospitalist and nephrology and have patient dialyzed I called and consulted with Dr. Acuna the nephrology on-call who accepted alonzo harrison and said he was going to come to the emergency room and take care of the patient. I also called Dr. Rosado who was to accept the patient and plan to proceed with the order on the system. Critical care attestation.: If time is entered above; I have spent that time in minutes in the direct care of this critically ill patient, excluding procedure time. ED Disposition Clinical Impression: End stage renal disease on dialysis, Hyperkalemia, Tuberculosis [id number] kidney injury Qualifiers: Acute renal failure type: unspecified Chronic kidney disease stage: unspecified stage Qualified Code(s): N17.9 - Acute kidney failure, unspecified Disposition: ADMITTED INPATIENT Is pt being admited?: Yes Does the pt Need Aspirin: No Condition: Stable Instructions: Hyperkalemia, [id number], Food Basics for Chronic Kidney Disease, Tuberculosis, [id number], Chronic Kidney Disease, Adult, [id number] Additional Instructions: Continue your dialysis as scheduled Follow the above printed instruction to continue to help your chronic conditions Call and schedule a follow-up with your nephrology and your primary doctor in the next 3 to 5 days for progress Please do not hesitate to call or return to emergency if your symptoms worsen Time of Disposition: 12:46
[2021-11-22 11:42] LABS: Basophils # (Auto) 0.1 K/mm3 (0.0-0.1); Basophils % (Auto) 2.3 % (0.0-1.8); Eosinophils # (Auto) 0.3 K/mm3 (0.0-0.4); Eosinophils % (Auto) 5.9 % (0.0-4.3); Hematocrit 32.7 % (35.5-45.6); Lymphocytes # (Auto) 0.9 K/mm3 (1.2-5.4); Lymphocytes % (Auto) 18.8 % (13.4-35.0); Mean Corpuscular HGB Conc 34 % (32-34); Mean Corpuscular Volume 96 fl (84-94); Monocytes # (Auto) 0.4 K/mm3 (0.0-0.8); Monocytes % (Auto) 7.9 % (0.0-7.3); Platelet Count 132 K/mm3 (140-440); Red Blood Count 3.42 M/mm3 (3.65-5.03); Red Cell Distribution Width 12.4 % (13.2-15.2)
[2021-11-22 11:58] LABS: Calcium 9.7 mg/dL (8.4-10.2)
--- NOTE | 2021-11-22 12:54 | Consultation ---
History of Present Illness - Reason for Consult Consult date: 11/22/21 end stage renal disease - History of Present Illness This is a 56-year old male with Active TB infection who presents to [facility] requesting dialysis. Patient does not have a dialysis clinic outpatiently and uses E.[facility] for dialysis for his ESRD. Patient's BUN noted to be 108 and serum creatinine 15.5. We will order hemodialysis for patient to be done today. Past History Past Medical History: ESRD Past Surgical History: Other (perm-catheter) Social history: no significant social history Family history: no significant family history Medications and Allergies Allergies Allergy/AdvReac Type Severity Reaction Status Date / Time No Known Allergies Allergy Verified 04/11/18 12:39 Home Medications Medication Instructions Recorded Confirmed Last Taken Type Simvastatin (Nf) [Zocor TAB] 20 mg PO QHS #30 tablet 02/28/17 01/20/18 06/05/17 Rx amLODIPine 10 mg PO QDAY #30 tablet 02/28/17 01/20/18 06/05/17 Rx Phenazopyridine [Pyridium] 200 mg PO TID #6 tab 04/11/18 Unknown Rx Acetaminophen [Acetaminophen TAB] 325 mg PO Q6H PRN tablet 04/10/20 Unknown Rx amLODIPine 10 mg PO QDAY #30 tablet 04/10/20 Unknown Rx dexAMETHasone [Decadron] 6 mg PO Q24HR #9 tablet 04/10/20 Unknown Rx hydrALAZINE [Apresoline TAB] 25 mg PO DAILY #30 tab 04/10/20 Unknown Rx traMADoL [Ultram 50 MG tab] 50 mg PO Q6H PRN #14 tablet 04/10/20 Unknown Rx Exam - Vital Signs Vital signs: Vital Signs Temp Pulse Resp BP Pulse Ox 97.8 F 74 18 154/86 97 11/22/21 09:07 11/22/21 09:07 11/22/21 09:07 11/22/21 09:07 11/22/21 09:07 Results - Lab Results 11/22/21 10:59 11/22/21 10:59 Most recent lab results Calcium 9.7 mg/dL (8.4-10.2) 11/22/21 10:59 Assessment and Plan Assessment: ESRD needing dialysis Active TB infection
[2021-11-22] MEDS ORDERED: METOCLOPRAMIDE 10 MG/2 ML INJ IV PRN ×2 (13:21→18:00)
[2021-11-22] MEDS ORDERED: hydrALAZINE 25 MG TAB PO SCH (14:00)
[2021-11-22] MEDS ORDERED: oxyCODONE /ACETAMINOPHEN 5-325MG TAB PO PRN (14:00)
[2021-11-22] MEDS ORDERED: traMADol 50 MG TAB PO PRN (14:00)
[2021-11-22] MEDS ORDERED: ONDANSETRON 4 MG/2 ML INJ IV PRN (14:00)
[2021-11-22] MEDS ORDERED: amLODIPine 10 MG TAB PO SCH (14:00)
[2021-11-22] MEDS ORDERED: ACETAMINOPHEN 325 MG TAB PO PRN ×2 (14:00)
[2021-11-22 19:10] VITALS: BP 167/90
[2021-11-22] MEDS ORDERED: PRAVASTATIN 40 MG TAB PO SCH (22:00)
[2021-11-22] MEDS ORDERED: NON-FORMULARY EACH (Simvastatin 20 MG Tablet) PO SCH (22:00)
--- NOTE | 2021-11-23 08:32 | History and Physical Report ---
History of Present Illness Date of examination: 11/22/21 Date of admission: 11/22/2022 Chief complaint: Shortness of breath for 1 day Medications and Allergies Allergies Allergy/AdvReac Type Severity Reaction Status Date / Time No Known Allergies Allergy Verified 04/11/18 12:39 Home Medications Medication Instructions Recorded Confirmed Last Taken Type Simvastatin (Nf) [Zocor TAB] 20 mg PO QHS #30 tablet 02/28/17 01/20/18 06/05/17 Rx amLODIPine 10 mg PO QDAY #30 tablet 02/28/17 01/20/18 06/05/17 Rx Phenazopyridine [Pyridium] 200 mg PO TID #6 tab 04/11/18 Unknown Rx Acetaminophen [Acetaminophen TAB] 325 mg PO Q6H PRN tablet 04/10/20 Unknown Rx amLODIPine 10 mg PO QDAY #30 tablet 04/10/20 Unknown Rx dexAMETHasone [Decadron] 6 mg PO Q24HR #9 tablet 04/10/20 Unknown Rx hydrALAZINE [Apresoline TAB] 25 mg PO DAILY #30 tab 04/10/20 Unknown Rx traMADoL [Ultram 50 MG tab] 50 mg PO Q6H PRN #14 tablet 04/10/20 Unknown Rx Exam - Constitutional Vitals: Temp Pulse Resp BP Pulse Ox 97.8 F 87 13 167/90 100 11/22/21 17:35 11/22/21 17:35 11/22/21 17:35 11/22/21 17:35 11/22/21 17:35 Results - Labs CBC & Chem 7: 11/22/21 10:59 11/22/21 10:59 Labs: Laboratory Last Values WBC 4.9 K/mm3 (4.5-11.0) 11/22/21 10:59 RBC 3.42 M/mm3 (3.65-5.03) L 11/22/21 10:59 Hgb 11.0 gm/dl (11.8-15.2) L 11/22/21 10:59 Hct 32.7 % (35.5-45.6) L 11/22/21 10:59 MCV 96 fl (84-94) H 11/22/21 10:59 MCH 32 pg (28-32) 11/22/21 10:59 MCHC 34 % (32-34) 11/22/21 10:59 RDW 12.4 % (13.2-15.2) L 11/22/21 10:59 Plt Count 132 K/mm3 (140-440) L 11/22/21 10:59 Lymph % (Auto) 18.8 % (13.4-35.0) 11/22/21 10:59 [place] % (Auto) 7.9 % (0.0-7.3) H 11/22/21 10:59 Eos % (Auto) 5.9 % (0.0-4.3) H 11/22/21 10:59 Baso % (Auto) 2.3 % (0.0-1.8) H 11/22/21 10:59 Lymph # (Auto) 0.9 K/mm3 (1.2-5.4) L 11/22/21 10:59 [place] # (Auto) 0.4 K/mm3 (0.0-0.8) 11/22/21 10:59 Eos # (Auto) 0.3 K/mm3 (0.0-0.4) 11/22/21 10:59 Baso # (Auto) 0.1 K/mm3 (0.0-0.1) 11/22/21 10:59 Seg Neutrophils % 65.1 % (40.0-70.0) 11/22/21 10:59 Seg Neutrophils # 3.2 K/mm3 (1.8-7.7) 11/22/21 10:59 Sodium 142 mmol/L (137-145) 11/22/21 10:59 Potassium 5.1 mmol/L (3.6-5.0) H 11/22/21 10:59 Chloride 101.4 mmol/L (98-107) 11/22/21 10:59 Carbon Dioxide 21 mmol/L (22-30) L 11/22/21 10:59 Anion Gap 25 mmol/L 11/22/21 10:59 BUN 108 mg/dL (9-20) H 11/22/21 10:59 Creatinine 15.5 mg/dL (0.8-1.3) H 11/22/21 10:59 Estimated GFR 3 ml/min 11/22/21 10:59 BUN/Creatinine Ratio 7 % 11/22/21 10:59 Glucose 95 mg/dL (75-100) 11/22/21 10:59 Calcium 9.7 mg/dL (8.4-10.2) 11/22/21 10:59 Total Bilirubin 0.50 mg/dL (0.1-1.2) 11/22/21 10:59 AST 25 units/L (5-40) 11/22/21 10:59 ALT 10 units/L (7-56) 11/22/21 10:59 Alkaline Phosphatase 98 units/L (35-129) 11/22/21 10:59 Total Protein 6.6 g/dL (6.3-8.2) 11/22/21 10:59 Albumin 4.0 g/dL (3.9-5) 11/22/21 10:59 Albumin/Globulin Ratio 1.5 % 11/22/21 10:59
== END 2021-11-22 19:30 | disposition admitted as inpatient to this hospital (09) ==
LOC: ED 06:43
DX: I12.0 Hypertensive chronic kidney disease with stage 5 chronic kidney disease or end stage renal disease (principal); N18.6 End stage renal disease; Z99.2 Dependence on renal dialysis; E11.65 Type 2 diabetes mellitus with hyperglycemia; A15.9 Respiratory tuberculosis unspecified; K21.9 Gastro-esophageal reflux disease without esophagitis; N28.9 Disorder of kidney and ureter, unspecified; Z86.73 Personal history of transient ischemic attack (TIA), and cerebral infarction without residual deficits; Z79.899 Other long term (current) drug therapy
CPT/HCPCS: 36415; 80053; 85025; 99283